=== PATIENT | female | born 1995 | race Two or more races ===

== ENCOUNTER 2016-12-21 23:27 | Inpatient (IN) | payer SELFPAY ==
[2016-12-21] MEDS ORDERED: ONDANSETRON HCL INJ/PF 4 MG/2 ML SDV IV ONE (23:47)
[2016-12-21] MEDS ORDERED: NORMAL SALINE 1000 ML 1,000 ML IV ONE (23:47)
[2016-12-22 00:44] LABS: ABSOLUTE BASOPHILS # (AUTO) 0.1 10^3/uL (0.0-0.2); ABSOLUTE EOSINOPHILS # (AUTO) 0.2 10^3/uL (0.0-0.6); ABSOLUTE LYMPHOCYTES (AUTO) 2.2 10^3/uL (0.5-4.7); ABSOLUTE MONOCYTES (AUTO) 0.7 10^3/uL (0.1-1.4); ABSOLUTE NEUT (AUTO) 9.2 10^3/uL (1.7-8.2); BASOPHILS % (AUTO) 0.7 % (0-2); EOSINOPHILS % (AUTO) 1.5 % (0-6); HEMOGLOBIN 11.1 g/dL (12.0-15.5); HGB HCT DIFFERENCE -1.7; LYMPHOCYTES % (AUTO) 17.9 % (13-45); MEAN CORPUSCULAR HEMOGLOBIN 25.2 pg (27.0-33.4); MEAN CORPUSCULAR HGB CONC 31.6 g/dL (32.0-36.0); MEAN CORPUSCULAR VOLUME 80 fl (80-97); RED CELL DISTRIBUTION WIDTH 15.4 % (11.5-14.0); SEGMENTED NEUTROPHILS % (AUTO) 73.9 % (42-78); WHITE BLOOD COUNT 12.4 10^3/uL (4.0-10.5)
[2016-12-22 00:51] LABS: APPEARANCE,URINE CLOUDY; BILIRUBIN,URINE NEGATIVE (NEGATIVE); GLUCOSE, URINE NEGATIVE (NEGATIVE); KETONES,URINE NEGATIVE (NEGATIVE); LEUKOCYTE ESTERASE,URINE MODERATE (NEGATIVE); NITRITE,URINE NEGATIVE (NEGATIVE); PROTEIN,URINE NEGATIVE (NEGATIVE); URINE SPECIFIC GRAVITY 1.024; UROBILINOGEN,URINE NEGATIVE mg/dL (<2.0)
[2016-12-22] MEDS ORDERED: MORPHINE SULFATE 10 MG/ML INJ IV ONE (01:22)
--- NOTE | 2016-12-22 01:25 | ER Document Report ---
ED General - General Chief Complaint: Nausea/Vomiting Stated Complaint: VOMITING Notes: Patient is 21-year-old female presents with complaint of right upper quadrant epigastric abdominal pain. Some vomiting. Pain started today. Pain is worse after eating.. No fevers. No diarrhea. No recent sick contacts. No history of previous abdominal surgeries. No other complaints this time. No dysuria. No abnormal vaginal discharge or bleeding. TRAVEL OUTSIDE OF THE [place] IN LAST 30 DAYS: No - Related Data Allergies/Adverse Reactions: No Known Allergies Allergy (Verified 07/22/16 09:35) Home Medications: Current Home Medications Biotin 2 cap PO DAILY 12/22/16 [History] Past Medical History - Social History Smoking Status: Unknown if Ever Smoked Frequency of alcohol use: None Drug Abuse: None Family History: Reviewed & Not Pertinent Patient has suicidal ideation: No Patient has homicidal ideation: No Renal/ Medical History: Denies: Hx Peritoneal Dialysis GI Medical History: Reports: Hx Gastroesophageal Reflux Disease - Immunizations Hx Diphtheria, Pertussis, Tetanus Vaccination: Yes Review of Systems - Review of Systems Notes: My Normal Review Basic REVIEW OF SYSTEMS: CONSTITUTIONAL : Denies fever, chills, or sweats. Denies recent illness. EENT: Denies eye, ear, throat, or mouth pain or symptoms. Denies nasal or sinus congestion. RESPIRATORY: Denies cough, cold, or chest congestion. Denies shortness of breath, difficulty breathing, or wheezing. GASTROINTESTINAL: Right upper quadrant and epigastric abdominal pain. Some nausea and vomiting.. Denies constipation. Last GENITOURINARY: Denies difficulty urinating, painful urination, burning, frequency, or blood in urine. FEMALE GENITOURINARY: Denies vaginal bleeding, abnormal or irregular periods. MUSCULOSKELETAL: Denies neck or back pain or joint pain or swelling. SKIN: Denies rash or skin lesions. NEUROLOGICAL: Denies altered mental status or loss of consciousness. Denies headache. Denies weakness or paralysis or loss of use of either side. Denies problems with gait or speech. Denies sensory or motor loss. ALL OTHER SYSTEMS REVIEWED AND NEGATIVE. Physical Exam - Vital signs Vitals: Temp Pulse Resp BP Pulse Ox 97.8 F 77 16 105/63 100 12/21/16 23:36 12/21/16 23:36 12/21/16 23:36 12/21/16 23:36 12/21/16 23:36 - Notes Notes: General Appearance: Well nourished, alert, cooperative, no acute distress, mild obvious discomfort. Vitals: reviewed, See vital signs table. Head: no swelling or tenderness to the head Eyes: PERRL, EOMI, Conjuctiva clear Mouth: No decreasd moisture Lungs: No wheezing, No rales, No rhonci, No accessory muscle use, good air exchange bilaterally. Heart: Normal rate, Regular rythm, No murmur, no rub Abdomen: Normal BS, soft, No rigidity, moderate right upper quadrant and epigastric abdominal tenderness to palpation, No guarding, no rebound, no abdominal masses, no organomegaly Extremities: strength 5/5 in all extremities, good pulses in all extremities, no swelling or tenderness in the extremities, no edema. Skin: warm, dry, appropriate color, no rash Neuro: speech clear, oriented x 3, normal affect, responds appropriately to questions. Course - Vital Signs Vital signs: Temp Pulse Resp BP Pulse Ox 97.8 F 72 14 100/59 L 97 12/22/16 06:21 12/22/16 06:21 12/22/16 06:21 12/22/16 06:21 12/22/16 06:21 - Laboratory Result Diagrams: 12/22/16 00:30 12/22/16 00:30 Laboratory results interpreted by me: 12/22/16 12/22/16 12/22/16 00:30 00:30 00:30 WBC 12.4 H Hgb 11.1 L Hct 35.0 L MCH 25.2 L MCHC 31.6 L RDW 15.4 H Absolute Neutrophils 9.2 H Total Protein 8.6 H Ur Leukocyte Esterase MODERATE H - Transfer of Care Notes: 12/22/16 07:07 I did speak with the general surgeon who did come evaluate the patient. He feels most likely symptoms are related to her gallbladder. He did admit the patient for further treatment and workup. Ultrasound was pending at that time. Dictation of this chart was performed using voice recognition software; therefore, there may be some unintended grammatical errors. Discharge - Discharge Clinical Impression: RUQ abdominal pain Vomiting Qualifiers: Vomiting type: unspecified Vomiting Intractability: non-intractable Nausea presence: with nausea Qualified Code(s): R11.2 - Nausea with vomiting, unspecified Leukocytosis Qualifiers: Leukocytosis type: unspecified Qualified Code(s): D72.829 - Elevated white blood cell count, unspecified Disposition: ADMITTED INPATIENT Admitting Provider: Surgicalist
[2016-12-22 01:29] LABS: ALBUMIN 4.7 g/dL (3.5-5.0); ALKALINE PHOSPHATASE 86 U/L (38-126); ANION GAP 16 (5-19); ASPARTATE AMINO TRANSFERASE 26 U/L (14-36); BILIRUBIN,TOTAL 0.7 mg/dL (0.2-1.3); BLOOD UREA NITROGEN 14 mg/dL (7-20); CARBON DIOXIDE 24 mmol/L (22-30); CHLORIDE 105 mmol/L (98-107); GLUCOSE 106 mg/dL (75-110); POTASSIUM 3.9 mmol/L (3.6-5.0); SODIUM 144.5 mmol/L (137-145); TOTAL PROTEIN 8.6 g/dL (6.3-8.2)
[2016-12-22 02:09] LABS: ALANINE AMINOTRANSFERASE 25 U/L (9-52)
[2016-12-22] MEDS ORDERED: PIPERACILLIN/TAZOBACTAM 3.375 GM VIAL IV ONE (02:14)
[2016-12-22] MEDS ORDERED: FAMOTIDINE INJ/PF 20 MG/2 ML SDV IV SCH (02:15)
[2016-12-22] MEDS ORDERED: ENOXAPARIN SODIUM INJ 40 MG/0.4 ML DISP.SYRIN SUBCUT SCH (02:30)
[2016-12-22] MEDS: NORMAL SALINE 1000 ML 1,000 ML IV PRN ×2 (03:51→15:18)
--- NOTE | 2016-12-22 04:23 | HISTORY AND PHYSICAL E ---
History and Physical NAME: LISS RODRIGUEZ : 1995 AGE: 21Y ADMITTED: 12/22/2016 ROOM: ED01HW REASON FOR ADMISSION: Suspected cholelithiasis with biliary colic, possible acute cholecystitis. HISTORY OF PRESENT ILLNESS: This 21-year-old female was in her usual state of health approximately 2 days prior to admission when she developed upper abdominal and mid abdominal pain with nausea and vomiting several times. There was no hematemesis or coffee ground vomitus, melena or hematochezia. The patient denies any fever or chills or previous episodes. The patient does give a history of postprandial bloating, gassiness, indigestion and early satiety. The patient presented to the emergency room with right upper quadrant pain, which was approximately 8/10 in intensity and on examination in the ER, she was found to have right upper quadrant tenderness. Of note, the patient's mother has had her gallbladder taken out for gallbladder pathology. The patient is now awaiting ultrasound of her gallbladder and laboratory data is pending. The patient states that since delivering her baby 4 months ago, she has been having postprandial symptoms of bloating, gassiness, indigestion and early satiety. PAST MEDICAL HISTORY: The patient has no history of diabetes mellitus, hypertension, cardiac, renal, pulmonary, liver disease or bleeding tendencies. No history of anesthesia problems with the family. ALLERGIES: None. MEDICATIONS: None. REVIEW OF SYSTEMS: CONSTITUTIONAL: The patient has no constitutional symptoms of weakness, tiredness or fatigue. ENT/RESPIRATORY/CARDIAC: The patient denies any symptoms referable to the ENT, respiratory, cardiovascular systems. GASTROINTESTINAL: As in history of present illness. The patient denies any symptoms referable to genitourinary, musculoskeletal, integumentary, lymphatic, endocrine or psychiatric systems. SOCIAL HISTORY: The patient does not drink or smoke. Denies illicit drugs. PHYSICAL EXAMINATION: GENERAL: Reveals a 21-year-old female, who is normally nourished, normally developed, who is in mild distress. VITAL SIGNS: To be recorded. HEENT: There is no conjunctival pallor or scleral icterus. Ears, nose and throat are clear. Mucous membranes are moist and pink. NECK: Supple without nodes, masses, thyroid, JVD or bruits. Trachea is midline. CHEST WALL: Shows good excursion. LUNGS: Clear anteriorly with good entry. CARDIOVASCULAR: S1 and S2 are audible without murmurs or gallops. ABDOMEN: Soft. Mildly obese with mild right upper quadrant and epigastric tenderness with minimal guarding. Bowel sounds are present. There is negative Hendricks's sign. There is no organomegaly or masses. No hernias or bruits noted. EXTREMITIES: Full range of motion without edema or tenderness. PELVIC/RECTAL: Examinations deferred. IMPRESSION: Abdominal pain, suspicious for cholelithiasis and biliary colic with possible true cholecystitis. PLAN: The patient is to undergo ultrasound at this time and we will admit the patient, anticipating that she will laparoscopic cholecystectomy. DICTATING PHYSICIAN: NIKKIE MORRIS M.D. [id number] PHY#: [id number] ID: [id number] JOB#: [id number] ACCT: [id number] cc: >
[2016-12-22] MEDS: ONDANSETRON HCL INJ/PF 4 MG/2 ML SDV IV PRN ×2 (06:15→19:35)
[2016-12-22] MEDS: MORPHINE SULFATE 10 MG/ML INJ IV PRN ×3 (06:18→22:52)
--- NOTE | 2016-12-22 07:57 | PDOC PROGRESS REPORT ---
Subjective Progress Note for:: 12/22/16 Subjective:: Patient complaining of abdominal pain. Physical Exam Vital Signs: Temp Pulse Resp BP Pulse Ox 97.8 F 72 14 100/59 L 97 12/22/16 06:21 12/22/16 06:21 12/22/16 06:21 12/22/16 06:21 12/22/16 06:21 General appearance: PRESENT: no acute distress GI/Abdominal exam: PRESENT: other - Minimal right upper quadrant tenderness. Results Impressions: Abdomen Ultrasound 12/22/16 01:22 IMPRESSION: NORMAL RIGHT UPPER QUADRANT ULTRASOUND. Assessment & Plan - Diagnosis (1) RUQ abdominal pain Is this a current diagnosis for this admission?: YesPlan: 1. Patient's gallbladder ultrasound was interpreted as normal. 2. In light of the patient's persisting abdominal pain localized right upper quadrant, leukocytosis, we will order a HIDA scan. - Time Time Spent with patient: 15-24 minutes
[2016-12-22] MEDS: FAMOTIDINE INJ/PF 20 MG/2 ML SDV IV SCH (22:46)
[2016-12-23] MEDS: NORMAL SALINE 1000 ML 1,000 ML IV PRN ×2 (00:28→08:57)
[2016-12-23] MEDS: ENOXAPARIN SODIUM INJ 40 MG/0.4 ML DISP.SYRIN SUBCUT SCH (08:54)
[2016-12-23] MEDS: FAMOTIDINE INJ/PF 20 MG/2 ML SDV IV SCH ×2 (10:40→23:02)
[2016-12-23] MEDS: MORPHINE SULFATE 10 MG/ML INJ IV PRN (21:15)
[2016-12-23] MEDS: ACETAMINOPHEN 325 MG TABLET PO PRN (23:20)
[2016-12-24] MEDS ORDERED: CEFAZOLIN 2 GM/D5W RTU 2 GM/50 ML RTUPB IV PRN (05:00)
--- NOTE | 2016-12-24 06:56 | PDOC PROGRESS REPORT ---
Subjective Progress Note for:: 12/23/16 Subjective:: Patient reports continued epigastric and right upper quadrant pain. Minor nausea. I reviewed the patient's history, labs and imaging studies in detail with her. Physical Exam Vital Signs: Temp Pulse Resp BP Pulse Ox 98.5 F 77 16 90/50 L 99 12/24/16 03:16 12/24/16 03:16 12/24/16 03:16 12/24/16 03:16 12/24/16 03:16 Intake & Output 12/22/16 12/23/16 12/24/16 06:59 06:59 06:59 Intake Total 1081 400 Output Total 750 Balance 331 400 Weight 80.8 kg 82.2 kg General appearance: PRESENT: no acute distress Head exam: PRESENT: normocephalic Eye exam: PRESENT: EOMI Mouth exam: PRESENT: neck supple Neck exam: ABSENT: JVD, lymphadenopathy, tenderness, thyromegaly Respiratory exam: PRESENT: clear to auscultation godfrey Cardiovascular exam: PRESENT: RRR GI/Abdominal exam: PRESENT: Hendricks's sign, soft, tenderness - Right upper quadrant and epigastric tenderness. + Hendricks sign.. ABSENT: distended, guarding, rebound Extremities exam: ABSENT: pedal edema Neurological exam: PRESENT: alert, oriented to person, oriented to place, oriented to time, oriented to situation Psychiatric exam: PRESENT: appropriate affect, normal mood Skin exam: ABSENT: jaundice Results Impressions: Hepatobiliary Scan Nuclear Medicine 12/22/16 00:00 IMPRESSION: No cystic duct or common duct obstruction Depressed gallbladder ejection fraction. IV cholecystokinin reproduced the patient's symptoms. Abdomen Ultrasound 12/22/16 01:22 IMPRESSION: NORMAL RIGHT UPPER QUADRANT ULTRASOUND. Status: Image reviewed by me Assessment & Plan - Diagnosis (1) Biliary dyskinesia Is this a current diagnosis for this admission?: YesPlan: Patient interaction was conducted with the assistance of Delia Mayfield. Biliary dyskinesia with a HIDA scan of 19.8%. Discussed that the normal ejection fraction is greater than or equal to 35%. We discussed laparoscopic cholecystectomy with cholangiogram in detail. Questions were answered. We discussed the risks, benefits and alternatives including , heart attack, stroke, blood clots in the legs, blood clots in lungs, pneumonia, bleeding, infection, hernia, bile leak, failure of symptoms to resolve, long- term diarrhea, damage to surrounding structures such as bladder, bowels, blood vessels or bile duct resulting in serious long-term health issues. We discussed the possibility of retained stone with need for further procedure such as ERCP. Understands and wishes to proceed.
[2016-12-24] MEDS ORDERED: NEOSTIGMINE METHYLSULFATE 10 MG/10 ML VIAL ONE (07:50)
[2016-12-24] MEDS ORDERED: DEXAMETHASONE SOD PHOSPHATE INJ 4 MG/1 ML VIAL ONE (07:50)
[2016-12-24] MEDS ORDERED: ROCURONIUM BROMIDE INJ 50 MG/5 ML VIAL IV ONE (07:50)
[2016-12-24] MEDS ORDERED: GLYCOPYRROLATE INJ 0.4 MG/2 ML VIAL ONE (07:50)
[2016-12-24] MEDS ORDERED: ONDANSETRON HCL INJ/PF 4 MG/2 ML SDV ONE (07:50)
[2016-12-24 08:08] LABS: HEMATOCRIT 33.3 % (36.0-47.0); HEMOGLOBIN 10.5 g/dL (12.0-15.5); HGB HCT DIFFERENCE -1.8; MEAN CORPUSCULAR HEMOGLOBIN 25.6 pg (27.0-33.4); MEAN CORPUSCULAR HGB CONC 31.6 g/dL (32.0-36.0); MEAN CORPUSCULAR VOLUME 81 fl (80-97); RED BLOOD COUNT 4.11 10^6/uL (3.72-5.28); RED CELL DISTRIBUTION WIDTH 15.7 % (11.5-14.0); WHITE BLOOD COUNT 7.4 10^3/uL (4.0-10.5)
[2016-12-24 08:25] LABS: ALANINE AMINOTRANSFERASE 24 U/L (9-52); ALBUMIN 3.7 g/dL (3.5-5.0); ALKALINE PHOSPHATASE 63 U/L (38-126); ANION GAP 12 (5-19); ASPARTATE AMINO TRANSFERASE 16 U/L (14-36); BILIRUBIN,TOTAL 0.7 mg/dL (0.2-1.3); BLOOD UREA NITROGEN 12 mg/dL (7-20); CALCIUM 9.4 mg/dL (8.4-10.2); CARBON DIOXIDE 24 mmol/L (22-30); CHLORIDE 106 mmol/L (98-107); CREATININE RESULT 0.67 mg/dL (0.52-1.25); GLUCOSE 78 mg/dL (75-110); POTASSIUM 4.1 mmol/L (3.6-5.0); SODIUM 141.7 mmol/L (137-145); TOTAL PROTEIN 6.8 g/dL (6.3-8.2)
[2016-12-24] MEDS: ENOXAPARIN SODIUM INJ 40 MG/0.4 ML DISP.SYRIN SUBCUT SCH (08:46)
[2016-12-24] MEDS ORDERED: BUPIVACAINE HCL 0.25% /EPINEPHRINE INJ/PF 30 ML SDV ONE (09:13)
[2016-12-24] MEDS ORDERED: LIDOCAINE 1% INJ-PF (10 MG/ML) 30 ML SDV ONE (09:13)
[2016-12-24] MEDS: FAMOTIDINE INJ/PF 20 MG/2 ML SDV IV SCH ×2 (09:35→21:36)
[2016-12-24] MEDS ORDERED: HYDROMORPHONE HCL INJ/PF 2 MG/ML AMPULE ONE (10:45)
[2016-12-24] MEDS ORDERED: FENTANYL CITRATE INJ/PF 100 MCG/2 ML AMPUL ONE (10:45)
[2016-12-24] MEDS ORDERED: MIDAZOLAM 2 MG/2 ML INJ ONE (10:45)
[2016-12-24] MEDS ORDERED: PROPOFOL INJ 200 MG/20 ML VIAL IV ONE (10:46)
--- NOTE | 2016-12-24 11:21 | PDOC PROGRESS REPORT ---
Subjective Progress Note for:: 12/24/16 Subjective:: Still has pain when epigastrium or right upper quadrant is palpated. Otherwise doing well. Ready for surgery. Physical Exam Vital Signs: Temp Pulse Resp BP Pulse Ox 98.7 F 72 16 97/55 L 98 12/24/16 08:11 12/24/16 08:11 12/24/16 08:11 12/24/16 08:11 12/24/16 08:11 Intake & Output 12/23/16 12/24/16 12/25/16 06:59 06:59 06:59 Intake Total 1081 400 Output Total 750 Balance 331 400 Weight 80.8 kg 82.2 kg General appearance: PRESENT: no acute distress Head exam: PRESENT: normocephalic GI/Abdominal exam: PRESENT: soft. ABSENT: distended, guarding, rebound, tenderness Neurological exam: PRESENT: alert, oriented to situation Psychiatric exam: PRESENT: anxious Skin exam: ABSENT: jaundice Results Laboratory Results: 12/24/16 07:19 12/24/16 07:19 12/24/16 12/24/16 07:19 07:19 WBC 7.4 RBC 4.11 Hgb 10.5 L Hct 33.3 L MCV 81 MCH 25.6 L MCHC 31.6 L RDW 15.7 H Plt Count 274 Sodium 141.7 Potassium 4.1 Chloride 106 Carbon Dioxide 24 Anion Gap 12 BUN 12 Creatinine 0.67 Est GFR ( Amer) > 60 Est GFR (Non-Af Amer) > 60 Glucose 78 Calcium 9.4 Total Bilirubin 0.7 AST 16 ALT 24 Alkaline Phosphatase 63 Total Protein 6.8 Albumin 3.7 Impressions: Hepatobiliary Scan Nuclear Medicine 12/22/16 00:00 IMPRESSION: No cystic duct or common duct obstruction Depressed gallbladder ejection fraction. IV cholecystokinin reproduced the patient's symptoms. Abdomen Ultrasound 12/22/16 01:22 IMPRESSION: NORMAL RIGHT UPPER QUADRANT ULTRASOUND. Assessment & Plan - Diagnosis (1) Biliary dyskinesia Is this a current diagnosis for this admission?: YesPlan: Proceed with surgery for biliary dyskinesia. Ancef 2 g IV preop. SCDs. Voided just before entering the OR. Questions answered. She wishes to proceed.
[2016-12-24] MEDS ORDERED: MORPHINE SULFATE 10 MG/ML INJ IV PRN (12:04)
[2016-12-24] MEDS ORDERED: DIPHENHYDRAMINE HCL 50 MG/ML VIAL IV PRN (12:04)
[2016-12-24] MEDS ORDERED: PROMETHAZINE HCL INJ 25 MG/1 ML VIAL IV PRN (12:04)
[2016-12-24] MEDS ORDERED: MEPERIDINE HCL/PF INJ 25 MG/1 ML DISP.SYRIN IV PRN (12:04)
[2016-12-24] MEDS ORDERED: FENTANYL CITRATE INJ/PF 100 MCG/2 ML AMPUL IV PRN ×3 (12:04)
[2016-12-24] MEDS ORDERED: PROMETHAZINE HCL INJ 25 MG/1 ML VIAL ONE (13:02)
--- NOTE | 2016-12-24 13:09 | Operative Report ---
Operative Report DATE OF SURGERY: 12/24/16 PREOPERATIVE DIAGNOSIS: Biliary dyskinesia POSTOPERATIVE DIAGNOSIS: Biliary dyskinesia, chronic cholecystitis. OPERATION: Laparoscopic cholecystectomy with cholangiogram SURGEON: ADELA CALHOUN RETAIL LOSS PREVENTION OFFICER: SALUD LOBO ANESTHESIA: GA TISSUE REMOVED OR ALTERED: Gallbladder COMPLICATIONS: None noted ESTIMATED BLOOD LOSS: minimal INTRAOPERATIVE FINDINGS: Dilated gallbladder with fibrous adhesions indicative of chronic cholecystitis. Normal cholangiogram. PROCEDURE: The patient was brought to the operative suite and placed supine on the OR table. Timeout was performed. Antibiotics were administered. Padding and positioning was appropriate. The patient was induced, intubated and maintained on general endotracheal anesthesia throughout the procedure. Patient was prepped and draped in the normal sterile fashion. The skin above the umbilicus was infiltrated with local anesthetic. A 5 mm incision was made. A Capron and Adson were used to dissect down to the level of the fascia, grasped the fascia and elevate it. The Veress needle was placed. Satisfactory water drop test was performed. Low flow insufflation was connected and yielded low opening pressure. Insufflation was advanced to high flow and pneumoperitoneum of 15 mmHg was obtained and maintained with procedure. Trocar and camera were placed through this incision confirming entry into the abdominal cavity without incident. Next the 11 mm epigastric and the two 5 mm right subcostal trochars were placed in the normal location and fashion under direct visualization, after infiltration with local anesthetic. Instruments were introduced. The abdominal cavity was surveyed. There was some bilious colored fluid in the right paracolic gutter and the pelvis. This was suctioned free of the abdominal at the end of the case. The gallbladder, which was dilated and had dense fibrous adhesions indicative of chronic cholecystitis. The adhesions to the gallbladder which were taken down with a combination of electrocautery and blunt dissection. The fundus of the gallbladder was elevated over the liver edge. The dissection the gallbladder began on the lateral aspect. Dissection continued down to the triangle of Calot. The cystic artery and the cystic duct were dissected out and seen to be clearly entering the gallbladder with no obscuration. The cystic duct was clipped adjacent to the gallbladder. A ductotomy was made. A cholangiocatheter was inserted. A cholangiogram was performed showing good filling of the biliary tree proximally and distally on down into the duodenum with no filling defects. The cholangiocatheter was removed. The cystic duct was clipped 3 times proximally and divided between clips. The cystic artery was clipped twice proximally and once distally against the gallbladder and divided between the clips. The gallbladder was removed from the gallbladder fossa with hook electrocautery. It was placed in an Endo Catch bag and removed through the epigastric trocar site. It was sent to pathology for further analysis. The field was irrigated and suctioned. The field was intact with no leakage of bile or blood. Clips were in place. The abdominal cavity was surveyed and was unremarkable. Trocar sites were infiltrated with more local anesthetic. The epigastric trocar site was closed at the level of the fascia with 0 Vicryl suture using the Endo Close needle. Pneumoperitoneum was released. Trochars were removed. Incisions were closed at the level of the skin with 4-0 Monocryl. The closed incisions were dressed with benzoin tincture, Steri-Strips and Band-Aids. All lap needle sponge counts were correct. The patient tolerated procedure well and was taken recovery in stable condition. TESFAYE Rangel was present and assisted for the entirety of the case. She provided sousa assistance with a variety of tasks including but not limited to obtaining pneumoperitoneum, operating camera, retracting, and closing incisions.
[2016-12-24] MEDS: ACETAMINOPHEN 325 MG TABLET PO PRN (17:42)
[2016-12-24] MEDS: HYDROCODONE/ACETAMINOPHEN 5-325 MG TABLET PO PRN (19:46)
[2016-12-24] MEDS ORDERED: DOCUSATE SODIUM 100 MG CAPSULE PO ONE (20:00)
[2016-12-25] MEDS: HYDROCODONE/ACETAMINOPHEN 5-325 MG TABLET PO PRN ×2 (01:12→08:38)
[2016-12-25] MEDS: ENOXAPARIN SODIUM INJ 40 MG/0.4 ML DISP.SYRIN SUBCUT SCH (08:41)
[2016-12-25] MEDS ORDERED: DOCUSATE SODIUM 100 MG CAPSULE PO SCH (10:00)
--- NOTE | 2016-12-25 10:02 | PDOC PROGRESS REPORT ---
Subjective Progress Note for:: 12/25/16 Subjective:: Feels well. Upper abdominal pain improved from preop. Physical Exam Vital Signs: Temp Pulse Resp BP Pulse Ox 98.5 F 71 15 100/53 L 99 12/25/16 07:50 12/25/16 07:50 12/25/16 04:41 12/25/16 07:50 12/25/16 07:50 Intake & Output 12/24/16 12/25/16 12/26/16 06:59 06:59 06:59 Intake Total 400 2940 Output Total 1560 Balance 400 1380 Weight 82.2 kg 82.6 kg General appearance: PRESENT: no acute distress Respiratory exam: PRESENT: clear to auscultation godfrey Cardiovascular exam: PRESENT: RRR GI/Abdominal exam: PRESENT: other - Soft, nondistended, mild right upper quadrant abdominal tenderness with no peritoneal signs. Wounds clean dry and intact. Extremities exam: PRESENT: other - No swelling and no tenderness. Results Laboratory Results: 12/24/16 07:19 12/24/16 07:19 Impressions: Hepatobiliary Scan Nuclear Medicine 12/22/16 00:00 IMPRESSION: No cystic duct or common duct obstruction Depressed gallbladder ejection fraction. IV cholecystokinin reproduced the patient's symptoms. Abdomen Ultrasound 12/22/16 01:22 IMPRESSION: NORMAL RIGHT UPPER QUADRANT ULTRASOUND. Cholangiogram 12/24/16 00:00 IMPRESSION: INTRAOPERATIVE CHOLANGIOGRAM. Assessment & Plan - Diagnosis (1) Biliary dyskinesia Is this a current diagnosis for this admission?: YesPlan: Status post laparoscopic cholecystectomy and intraoperative cholangiogram. Patient doing well. Will discharge patient home.
--- NOTE | 2016-12-25 10:28 | DISCHARGE SUMMARY E ---
Discharge Summary NAME: LISS RODRIGUEZ : 1995 AGE: 21Y ADMITTED: 12/22/2016 DISCHARGED: 12/25/2016 DISCHARGE DIAGNOSIS: Biliary dyskinesia, chronic cholecystitis. PROCEDURE PERFORMED DURING HOSPITALIZATION: Laparoscopic cholecystectomy with intraoperative cholangiogram performed by Dr. Florencio Nance on 12/24/2016. HOSPITAL COURSE: The patient was initially admitted with persistence of her symptoms. She was taken to the operating room where she underwent a laparoscopic cholecystectomy with intraoperative cholangiogram. Intraoperative cholangiography was unremarkable. The patient did well postoperatively. She had improvement of her preoperative symptoms postoperatively. She was tolerating a diet. Her exam looked good. The patient is now being discharged to home in good condition. She will follow up with Dr. Florencio Nance in 2 weeks. She is encouraged to stay active at home; however, avoid strenuous activity. She may shower. She may follow a low-fat diet. DISCHARGE MEDICATIONS: 1. Percocet 1 p.o. every 4 hours p.r.n. pain. 2. Biotin 5 mg b.i.d. DICTATING PHYSICIAN: SASHA PARADA M.D. [id number] PHY#: [id number] ID: [id number] JOB#: [id number] ACCT: [id number] cc:SASHA PARADA M.D. [facility],
[2016-12-25 10:49] VITALS: BP 95/57
== END 2016-12-25 11:30 | disposition home or self-care (01) | DRG 419 ==
LOC: ER 23:27 → EH 12-22 01:58 → UNDOADMIN 12-22 01:58 → EH 12-22 02:30 → 2N 12-22 08:00
PROVIDERS: ADMIT Surgery; ATTEND Surgery
PROC: BF0CYZZ Plain Radiography of Hepatobiliary System, All using Other Contrast (ICD-10-PCS; 2016-12-24)
PROC: 0FT44ZZ Resection of Gallbladder, Percutaneous Endoscopic Approach (ICD-10-PCS; principal; 2016-12-24 12:00)
DX: K81.1 Chronic cholecystitis (principal); K82.8 Other specified diseases of gallbladder; K21.9 Gastro-esophageal reflux disease without esophagitis
CPT/HCPCS: 36415; 74300; 76705; 78227; 790; 80053; 81001; 84703; 85025; 85027; 88304; 93976; 94799; 96374; 96375; 99284; A9537; J0690; J1100; J1170; J1650; J2250; J2270; J2405; J2543; J2550; J2704; J2805; J3010; J3490; J7030; Q9967; Q9969; S0028

== ENCOUNTER 2016-12-26 15:40 | Observation (INO) | payer SELFPAY ==
--- NOTE | 2016-12-26 16:01 | ER Document Report ---
ED Medical Screen (RME) - General Stated Complaint: POST SURGICAL COMPLICATIONS Time seen by provider: 15:58 Mode of Arrival: Ambulatory Information source: Patient Notes: 21-year-old female presents to ED for vomiting of blood today. Patient had cholecystectomy on Thursday. She states she has been vomiting after trying to eat anything since the surgery. I have greeted and performed a rapid initial assessment of this patient. A comprehensive ED assessment and evaluation of the patient, analysis of test results and completion of medical decision making process will be conducted by an additional ED providers. TRAVEL OUTSIDE OF THE [place] IN LAST 30 DAYS: No - Related Data Allergies/Adverse Reactions: No Known Allergies Allergy (Verified 12/26/16 15:58) Past Medical History Renal/ Medical History: Denies: Hx Peritoneal Dialysis GI Medical History: Reports: Hx Gastroesophageal Reflux Disease Psychiatric Medical History: Denies: Hx Depression - Immunizations Hx Diphtheria, Pertussis, Tetanus Vaccination: Yes
[2016-12-26 16:40] LABS: ABSOLUTE BASOPHILS # (AUTO) 0.1 10^3/uL (0.0-0.2); ABSOLUTE EOSINOPHILS # (AUTO) 0.1 10^3/uL (0.0-0.6); ABSOLUTE LYMPHOCYTES (AUTO) 1.6 10^3/uL (0.5-4.7); ABSOLUTE MONOCYTES (AUTO) 0.7 10^3/uL (0.1-1.4); ABSOLUTE NEUT (AUTO) 7.7 10^3/uL (1.7-8.2); BASOPHILS % (AUTO) 0.5 % (0-2); EOSINOPHILS % (AUTO) 0.8 % (0-6); HEMATOCRIT 36.3 % (36.0-47.0); HEMOGLOBIN 11.4 g/dL (12.0-15.5); HGB HCT DIFFERENCE -2.1; LYMPHOCYTES % (AUTO) 16.1 % (13-45); MEAN CORPUSCULAR HEMOGLOBIN 25.6 pg (27.0-33.4); MEAN CORPUSCULAR HGB CONC 31.6 g/dL (32.0-36.0); MEAN CORPUSCULAR VOLUME 81 fl (80-97); MONOCYTES % (AUTO) 7.3 % (3-13); RED BLOOD COUNT 4.47 10^6/uL (3.72-5.28); RED CELL DISTRIBUTION WIDTH 16.2 % (11.5-14.0); SEGMENTED NEUTROPHILS % (AUTO) 75.3 % (42-78); WHITE BLOOD COUNT 10.2 10^3/uL (4.0-10.5)
[2016-12-26 16:52] LABS: APPEARANCE,URINE CLOUDY; BILIRUBIN,URINE NEGATIVE (NEGATIVE); GLUCOSE, URINE NEGATIVE (NEGATIVE); KETONES,URINE NEGATIVE (NEGATIVE); LEUKOCYTE ESTERASE,URINE LARGE (NEGATIVE); NITRITE,URINE POSITIVE (NEGATIVE); PROTEIN,URINE NEGATIVE (NEGATIVE); URINE SPECIFIC GRAVITY 1.012; UROBILINOGEN,URINE NEGATIVE mg/dL (<2.0)
[2016-12-26 17:13] LABS: ALANINE AMINOTRANSFERASE 60 U/L (9-52); ALBUMIN 4.8 g/dL (3.5-5.0); ALKALINE PHOSPHATASE 74 U/L (38-126); ANION GAP 14 (5-19); ASPARTATE AMINO TRANSFERASE 59 U/L (14-36); BILIRUBIN,TOTAL 0.6 mg/dL (0.2-1.3); BLOOD UREA NITROGEN 13 mg/dL (7-20); CARBON DIOXIDE 27 mmol/L (22-30); CHLORIDE 102 mmol/L (98-107); CREATININE RESULT 0.62 mg/dL (0.52-1.25); GLUCOSE 96 mg/dL (75-110); SODIUM 142.6 mmol/L (137-145)
--- NOTE | 2016-12-26 17:41 | ER Document Report ---
ED GI/ - General Time seen by provider: 17:30 Mode of Arrival: Ambulatory Information source: Patient, Relative TRAVEL OUTSIDE OF THE [place] IN LAST 30 DAYS: No - HPI Patient complains to provider of: Abdominal pain, Vomiting Onset: Other - see HPI Location: RUQ Associated symptoms: Blood in emesis, Nausea <ABDIEL CARMONA - Last Filed: 12/26/16 19:27> <IVETT HERNANDEZ - Last Filed: 12/26/16 23:37> - General Chief Complaint: Vomiting Stated Complaint: POST SURGICAL COMPLICATIONS Notes: Patient is a 21-year-old female presents to the emergency department with complaints of vomiting and abdominal pain. Patient states that she had hematemesis this morning. Patient had a cholecystectomy on Thursday here at [facility]. Patient's surgery was performed by Dr. Robins. Patient is complaining of right upper quadrant abdominal pain. Patient states that her pain is worse since she left the hospital after her surgery. Patient is present with a family member and only speaks Namibian. Patient has no known allergies. (ABDIEL CARMONA) - Related Data Allergies/Adverse Reactions: No Known Allergies Allergy (Verified 12/26/16 15:58) Past Medical History - General Information source: Patient, Relative - Social History Smoking Status: Never Smoker Cigarette use (# per day): No Chew tobacco use (# tins/day): No Frequency of alcohol use: None Drug Abuse: None Family History: None Patient has suicidal ideation: No Patient has homicidal ideation: No GI Medical History: Reports: Hx Gastroesophageal Reflux Disease Past Surgical History: Reports: Hx Cholecystectomy - 10/24 - Immunizations Hx Diphtheria, Pertussis, Tetanus Vaccination: Yes <ABDIEL CARMONA - Last Filed: 12/26/16 19:27> Review of Systems - Review of Systems Constitutional: No symptoms reported EENT: No symptoms reported Cardiovascular: No symptoms reported Respiratory: No symptoms reported Gastrointestinal: See HPI, Abdominal pain, Nausea, Vomiting, Blood in vomit Genitourinary: No symptoms reported Female Genitourinary: No symptoms reported Musculoskeletal: No symptoms reported Skin: No symptoms reported Hematologic/Lymphatic: No symptoms reported Neurological/Psychological: No symptoms reported -: Yes All other systems reviewed and negative <ABDIEL CARMONA - Last Filed: 12/26/16 19:27> Physical Exam - Vital signs Interpretation: Normal - General General appearance: Appears well, Alert In distress: Mild - HEENT Head: Normocephalic, Atraumatic Eyes: Normal Pupils: PERRL Mucous membranes: Normal - Respiratory Respiratory status: No respiratory distress Chest status: Nontender Breath sounds: Normal Chest palpation: Normal - Cardiovascular Rhythm: Regular Heart sounds: Normal auscultation Murmur: No - Abdominal Inspection: Fresh incision - surgical incisions are well and normal appearing Distension: No distension Bowel sounds: Normal Tenderness: Tender - tenderness to palpation to the RUQ and near surgical incision areas Organomegaly: No organomegaly - Back Back: Normal, Nontender - Extremities General upper extremity: Normal inspection, Normal ROM, Normal strength General lower extremity: Normal inspection, Normal ROM, Normal strength - Neurological Neuro grossly intact: Yes Cognition: Normal Orientation: AAOx4 Shyla Coma Scale Eye Opening: Spontaneous [place] Coma Scale Verbal: Oriented [place] Coma Scale Motor: Obeys Commands [place] Coma Scale Total: 15 Speech: Normal - Psychological Associated symptoms: Normal affect, Normal mood - Skin Skin Temperature: Warm Skin Moisture: Dry <ABDIEL CARMONA - Last Filed: 12/26/16 19:27> Course - Laboratory Result Diagrams: 12/26/16 16:10 12/26/16 16:10 - Consults Dr. Robins Time consulted: 17:40 Consulted provider: will come to ER <ABDIEL CARMONA - Last Filed: 12/26/16 19:27> - Laboratory Result Diagrams: 12/26/16 16:10 12/26/16 16:10 - Diagnostic Test Radiology reviewed: Image reviewed, Reports reviewed <IVETT HERNANDEZ - Last Filed: 12/26/16 23:37> - Re-evaluation Re-evalutation: 12/26/16 23:35 Patient is a 21-year-old female who comes in for abdominal pain, vomiting, and lightheadedness when she stands up. No acute findings on CT. Blood work within normal limits. The patient is still nauseated after all medications. Patient has been discussed with surgery and will be admitted to Dr. Nance. Of note, the patient does appear to have a moderate amount of stool but has refused enema. Stable at time of admission. (IVETT HERNANDEZ) - Vital Signs Vital signs: Temp Pulse Resp BP Pulse Ox 98.4 F 78 14 107/57 L 98 12/26/16 22:17 12/26/16 22:17 12/26/16 22:17 12/26/16 22:17 12/26/16 22:17 (ABDIEL CARMONA) (IVETT HERNANDEZ) - Laboratory Laboratory results interpreted by me: 12/26/16 12/26/16 12/26/16 16:10 16:10 16:10 Hgb 11.4 L MCH 25.6 L MCHC 31.6 L RDW 16.2 H AST 59 H ALT 60 H Urine Nitrite POSITIVE H Ur Leukocyte Esterase LARGE H (ABDIEL CARMONA) (IVETT HERNANDEZ) - Consults Dr. Robins Reason for consultation: 12/26/16 17:[address] Robins to notify him of his patient was present in the ED after surgery on 10/2412/26/16 18:[address] Robins who asked that a CT scan be ordered for this patient. (ABDIEL CARMONA) Discharge <ABDIEL CARMONA - Last Filed: 12/26/16 19:27> - Discharge Admitting Provider: Surgicalist - [facility] Unit Admitted: Surgical Floor <IVETT HERNANDEZ - Last Filed: 12/26/16 23:37> - Discharge Clinical Impression: Postoperative nausea and vomiting, Orthostatic hypotension Constipation Qualifiers: Constipation type: unspecified constipation type Qualified Code(s): K59.00 - Constipation, unspecified Urinary tract infection Qualifiers: Urinary tract infection type: site unspecified Hematuria presence: without hematuria Qualified Code(s): N39.0 - Urinary tract infection, site not specified Condition: Stable Disposition: ADMITTED OBSERVATION Scribe Attestation: 12/26/16 23:37 I personally performed the services described in the documentation, reviewed and edited the documentation which was dictated to the scribe in my presence, and it accurately records my words and actions. (IVETT HERNANDEZ) Scribe Documentation - Scribe Written by Scribroxie:: Abdiel Carmona 12/26/16 19:25 acting as scribe for :: Margarette <ABDIEL CARMONA - Last Filed: 12/26/16 19:27>
[2016-12-26] MEDS ORDERED: ONDANSETRON HCL INJ/PF 4 MG/2 ML SDV IV ONE ×2 (17:42→21:23)
[2016-12-26] MEDS ORDERED: NORMAL SALINE 1000 ML 1,000 ML IV ONE ×2 (17:42→20:33)
[2016-12-26] MEDS ORDERED: MORPHINE SULFATE 10 MG/ML INJ IV ONE (17:42)
[2016-12-26] MEDS ORDERED: CEFTRIAXONE 1 GM/D5W RTU 50 ML IV ONE (19:41)
[2016-12-26] MEDS ORDERED: PROCHLORPERAZINE EDISYLATE INJ 10 MG/2 ML VIAL IV ONE (21:23)
[2016-12-26] MEDS ORDERED: DIPHENHYDRAMINE HCL 50 MG/ML VIAL IV ONE (21:23)
[2016-12-26] MEDS ORDERED: NA PHOS,M-B/NA PHOS,DI-BA (ADULT) 133 ML ENEMA PR SCH (23:00)
[2016-12-26] MEDS ORDERED: ONDANSETRON HCL INJ/PF 4 MG/2 ML SDV IV PRN (23:16)
[2016-12-26] MEDS ORDERED: MORPHINE SULFATE 10 MG/ML INJ IV PRN (23:16)
--- NOTE | 2016-12-26 23:16 | PDOC H&P ---
History of Present Illness History of Present Illness: LISS RODRIGUEZ is a 21 year old female who had a laparoscopic cholecystectomy with cholangiogram on 12/24/2016. Surgery was midday. Surgical findings were notable for bilious fluid in the right paracolic gutter with no obvious cause, as well as dense fibrous adhesions to the gallbladder indicative of chronic cholecystitis. The pathology report on the gallbladder showed minimal chronic cholecystitis with cholesterolosis. She was doing well the morning following surgery and was discharged home with Percocet 5/325 one every 4 hours. She reports she's been taking the pain pills at 4 hour intervals but has right upper quadrant pain not well controlled by the pain pills. She also reports nausea and vomiting. It is not clear if she's been able to keep down the pain pills, or has been vomiting them up. She also reports she has a headache. She reports the vomiting contains some dark blood. She denies fevers or chills at home. She does report she is cold in the ER, but reports its due to the cold room (which it is). She denies chest pain, shortness of breath, seizures, tremors. She reports decreased flatus and no bowel movement in the last week. Labs were obtained by the ER provider. White count was 10.2. Bilirubin was normal. AST and ALT were 59 and 60 respectively. Hemoglobin is 11.4, which is low, but which is improved compared to preop labs. She does have evidence of a urinary tract infection. CT scan with by mouth and IV contrast was obtained which showed expected postsurgical changes. Patient had lightheadedness with attempted ambulation and refractory nausea and vomiting in the ED, and therefore surgery was consult for admission. Past Medical History GI Medical History: Reports: Gastroesophageal Reflux Disease, Other - Biliary dyskinesia/chronic cholecystitis Past Surgical History Past Surgical History: Reports: Cholecystectomy - 10/24 Social History Information Source: Patient Smoking Status: Never Smoker Frequency of Alcohol Use: None Hx Recreational Drug Use: No Hx Prescription Drug Abuse: No Family History Family History: Other - Mother had gallbladder removed. No family history of anesthesia problems. 5-month-old healthy baby boy. Parental Family History Reviewed: Yes Children Family History Reviewed: Yes Sibling(s) Family History Reviewed.: Yes Medication/Allergy Home Medications: Biotin [Biotin 5 mg Tablet] 5 mg PO BID 12/22/16 Oxycodone HCl/Acetaminophen [Percocet 5-325 mg Tablet] 1 tab PO ASDIR PRN #25 tablet 12/25/16 Allergies/Adverse Reactions: No Known Allergies Allergy (Verified 12/26/16 15:58) Review of Systems All systems: reviewed and no additional remarkable complaints except as stated Physical Exam Vital Signs: Temp Pulse Resp BP Pulse Ox 98.4 F 78 14 107/57 L 98 12/26/16 22:17 12/26/16 22:17 12/26/16 22:17 12/26/16 22:17 12/26/16 22:17 Intake & Output 12/25/16 12/26/16 12/27/16 06:59 06:59 06:59 Weight 76.8 kg General appearance: PRESENT: no acute distress Head exam: PRESENT: normocephalic Eye exam: PRESENT: EOMI Mouth exam: PRESENT: tongue midline Respiratory exam: PRESENT: clear to auscultation godfrey Cardiovascular exam: PRESENT: RRR GI/Abdominal exam: PRESENT: soft, tenderness - Tender in the right upper quadrant. Incisions clean and dry with Steri-Strips.. ABSENT: guarding, rebound Extremities exam: ABSENT: pedal edema, tenderness Neurological exam: PRESENT: alert, oriented to situation Skin exam: PRESENT: normal color. ABSENT: jaundice Results Laboratory Results: 12/26/16 16:10 12/26/16 16:10 12/26/16 12/26/16 12/26/16 16:10 16:10 16:10 WBC 10.2 RBC 4.47 Hgb 11.4 L Hct 36.3 MCV 81 MCH 25.6 L MCHC 31.6 L RDW 16.2 H Plt Count 306 Seg Neutrophils % 75.3 Lymphocytes % 16.1 Monocytes % 7.3 Eosinophils % 0.8 Basophils % 0.5 Absolute Neutrophils 7.7 Absolute Lymphocytes 1.6 Absolute Monocytes 0.7 Absolute Eosinophils 0.1 Absolute Basophils 0.1 Sodium 142.6 Potassium 4.0 Chloride 102 Carbon Dioxide 27 Anion Gap 14 BUN 13 Creatinine 0.62 Est GFR ( Amer) > 60 Est GFR (Non-Af Amer) > 60 Glucose 96 Calcium 10.0 Total Bilirubin 0.6 AST 59 H ALT 60 H Alkaline Phosphatase 74 Total Protein 8.0 Albumin 4.8 Lipase 68.0 Serum HCG, Qual NEGATIVE Urine Color Urine Appearance Urine pH Ur Specific [place] Urine Protein Urine Glucose (UA) Urine Ketones Urine Blood Urine Nitrite Ur Leukocyte Esterase Urine WBC (Auto) Urine RBC (Auto) 12/26/16 16:10 WBC RBC Hgb Hct MCV MCH MCHC RDW Plt Count Seg Neutrophils % Lymphocytes % Monocytes % Eosinophils % Basophils % Absolute Neutrophils Absolute Lymphocytes Absolute Monocytes Absolute Eosinophils Absolute Basophils Sodium Potassium Chloride Carbon Dioxide Anion Gap BUN Creatinine Est GFR ( Amer) Est GFR (Non-Af Amer) Glucose Calcium Total Bilirubin AST ALT Alkaline Phosphatase Total Protein Albumin Lipase Serum HCG, Qual Urine Color YELLOW Urine Appearance CLOUDY Urine pH 7.0 Ur Specific [place] 1.012 Urine Protein NEGATIVE Urine Glucose (UA) NEGATIVE Urine Ketones NEGATIVE Urine Blood NEGATIVE Urine Nitrite POSITIVE H Ur Leukocyte Esterase LARGE H Urine WBC (Auto) 52 Urine RBC (Auto) 2 Impressions: Abdomen/Pelvis CT 12/26/16 00:00 IMPRESSION: EXPECTED POSTSURGICAL CHANGE RELATED TO RECENT CHOLECYSTECTOMY WITHOUT GROSS COMPLICATION IDENTIFIED. NONOBSTRUCTING LEFT RENAL CALCULI. Assessment & Plan - Diagnosis (1) Postoperative nausea and vomiting Is this a current diagnosis for this admission?: YesPlan: Admit, IV fluids, IV anti-emesis medications, antibiotics for UTI, IV pain meds. Enema to be given in the ED, then started on a bowel regimen with Colace and MiraLAX. Nothing by mouth at midnight in case additional studies need to be done in a.m. (2) Constipation Is this a current diagnosis for this admission?: Yes (3) Urinary tract infection Is this a current diagnosis for this admission?: Yes (4) RUQ abdominal pain Is this a current diagnosis for this admission?: Yes
[2016-12-26] MEDS ORDERED: PROMETHAZINE HCL INJ 25 MG/1 ML VIAL IV PRN (23:22)
[2016-12-26] MEDS: DOCUSATE SODIUM 100 MG CAPSULE PO SCH (23:45)
[2016-12-27] MEDS: PANTOPRAZOLE SODIUM 40 MG VIAL IV SCH (00:45)
[2016-12-27] MEDS: POTASSI CL 20 MEQ/D5-1/2NS 1L 1,000 ML IV PRN ×3 (00:48→16:18)
[2016-12-27 06:29] LABS: HEMOGLOBIN 10.3 g/dL (12.0-15.5); HGB HCT DIFFERENCE -1.1; MEAN CORPUSCULAR HEMOGLOBIN 25.9 pg (27.0-33.4); MEAN CORPUSCULAR HGB CONC 32.3 g/dL (32.0-36.0); MEAN CORPUSCULAR VOLUME 80 fl (80-97); RED CELL DISTRIBUTION WIDTH 16.1 % (11.5-14.0); WHITE BLOOD COUNT 6.8 10^3/uL (4.0-10.5)
[2016-12-27 06:53] LABS: ALANINE AMINOTRANSFERASE 104 U/L (9-52); ALBUMIN 3.8 g/dL (3.5-5.0); ALKALINE PHOSPHATASE 151 U/L (38-126); AMYLASE 31 U/L (30-110); ANION GAP 12 (5-19); ASPARTATE AMINO TRANSFERASE 161 U/L (14-36); BILIRUBIN,TOTAL 0.6 mg/dL (0.2-1.3); BLOOD UREA NITROGEN 8 mg/dL (7-20); CALCIUM 9.6 mg/dL (8.4-10.2); CARBON DIOXIDE 21 mmol/L (22-30); CHLORIDE 106 mmol/L (98-107); GLUCOSE 96 mg/dL (75-110); LIPASE 50.4 U/L (23-300); MAGNESIUM 1.9 mg/dL (1.6-2.3); SODIUM 139.3 mmol/L (137-145); TOTAL PROTEIN 7.1 g/dL (6.3-8.2)
[2016-12-27] MEDS: ENOXAPARIN SODIUM INJ 40 MG/0.4 ML DISP.SYRIN SUBCUT SCH (08:53)
[2016-12-27] MEDS: POLYETHYLENE GLYCOL 3350 POWDER 17 GM/1 PACKET PO SCH (10:44)
[2016-12-27] MEDS: MORPHINE SULFATE 10 MG/ML INJ IV PRN ×2 (14:38→18:53)
[2016-12-27] MEDS: DOCUSATE SODIUM 100 MG CAPSULE PO SCH (18:45)
--- NOTE | 2016-12-27 19:24 | PDOC PROGRESS REPORT ---
Subjective Progress Note for:: 12/27/16 Physical Exam Vital Signs: Temp Pulse Resp BP Pulse Ox 98.3 F 74 18 98/50 L 99 12/27/16 07:37 12/27/16 07:37 12/27/16 07:37 12/27/16 07:37 12/27/16 07:37 Intake & Output 12/26/16 12/27/16 12/28/16 06:59 06:59 06:59 Weight 76.8 kg Results Laboratory Results: 12/27/16 06:01 12/27/16 06:01 12/27/16 12/27/16 06:01 06:01 WBC 6.8 RBC 4.00 Hgb 10.3 L Hct 32.0 L MCV 80 MCH 25.9 L MCHC 32.3 RDW 16.1 H Plt Count 289 Sodium 139.3 Potassium 4.0 Chloride 106 Carbon Dioxide 21 L Anion Gap 12 BUN 8 Creatinine 0.60 Est GFR ( Amer) > 60 Est GFR (Non-Af Amer) > 60 Glucose 96 Calcium 9.6 Phosphorus 4.0 Magnesium 1.9 Total Bilirubin 0.6 AST 161 H ALT 104 H Alkaline Phosphatase 151 H Total Protein 7.1 Albumin 3.8 Amylase 31 Lipase 50.4 Impressions: Abdomen/Pelvis CT 12/26/16 00:00 IMPRESSION: EXPECTED POSTSURGICAL CHANGE RELATED TO RECENT CHOLECYSTECTOMY WITHOUT GROSS COMPLICATION IDENTIFIED. NONOBSTRUCTING LEFT RENAL CALCULI. Assessment & Plan - Plan Summary Plan Summary: nausea, dehydration possible gastroparesis IV hydration Ambulate
[2016-12-27] MEDS ORDERED: METOCLOPRAMIDE HCL INJ/PF 10 MG/2 ML SDV IV ONE (19:25)
[2016-12-28] MEDS: POTASSI CL 20 MEQ/D5-1/2NS 1L 1,000 ML IV PRN ×2 (00:56→08:31)
[2016-12-28] MEDS: ENOXAPARIN SODIUM INJ 40 MG/0.4 ML DISP.SYRIN SUBCUT SCH (08:31)
[2016-12-28] MEDS: POLYETHYLENE GLYCOL 3350 POWDER 17 GM/1 PACKET PO SCH (10:31)
[2016-12-28] MEDS: PANTOPRAZOLE SODIUM 40 MG VIAL IV SCH (10:32)
[2016-12-28 11:57] VITALS: BP 104/58
--- NOTE | 2016-12-28 14:15 | PDOC PROGRESS REPORT ---
Subjective Progress Note for:: 12/28/16 Subjective:: feeling better no nausea, no pain tolerating diet Physical Exam Vital Signs: Temp Pulse Resp BP Pulse Ox 98.3 F 75 16 104/58 L 99 12/28/16 11:51 12/28/16 11:51 12/28/16 11:51 12/28/16 11:51 12/28/16 11:51 Intake & Output 12/27/16 12/28/16 12/29/16 06:59 06:59 06:59 Intake Total 3622 600 Output Total 450 Balance 3622 150 Weight 76.8 kg 78.2 kg GI/Abdominal exam: PRESENT: ascites, diminished bowel sounds, distended, firm, guarding, hernia, hyperactive bowel sounds, hypoactive bowel sounds, mass, Hendricks's sign, normal bowel sounds, organolmegaly, rebound, rigid, soft - NO TENDERNESS, tenderness, other Results Laboratory Results: 12/27/16 06:01 12/27/16 06:01 Impressions: Abdomen/Pelvis CT 12/26/16 00:00 IMPRESSION: EXPECTED POSTSURGICAL CHANGE RELATED TO RECENT CHOLECYSTECTOMY WITHOUT GROSS COMPLICATION IDENTIFIED. NONOBSTRUCTING LEFT RENAL CALCULI. Assessment & Plan - Plan Summary Plan Summary: nAUSEA, DEHYDRATIONRESOLVED. Mildle elivated AST, Bili normal Hepatitis seology and follow up in surgery clinic, HIDA Scan - if normal - DC home this PM or AM
--- NOTE | 2016-12-28 15:58 | DISCHARGE SUMMARY E ---
Discharge Summary NAME: LISS RODRIGUEZ : 1995 AGE: 21Y ADMITTED: 12/26/2016 DISCHARGED: 12/28/2016 ADMITTING DIAGNOSES: 1. Abdominal pain. 2. Nausea. 3. Status post laparoscopic cholecystectomy, probable biliary dyskinesia. HISTORY OF PRESENT ILLNESS: The patient underwent uneventful surgery and then admitted for a few days. A later week or so, nausea continued, unable to eat, mid-epigastric pain. HOSPITAL COURSE: After admission, CT scan was done which shows no pathology, no leak, no apparent abscesses, but patient because of pain and dehydration could not be discharged and would need to be admitted. After that, she was given IV fluids, and after hydration she is feeling better. From her last round, on the diet she is feeling a whole lot better. Labs are better, no fever, except the AST/ALT went up a little bit, so I am arranging a hepatitis panel, and for that she will follow in the office. HIDA scan also being ordered. If that is normal, then we will send her home. She will follow up in the surgical office for the followup of hepatitis profile and other irritable bowel management. PHYSICAL EXAMINATION: GENERAL: Otherwise, at the time of discharge, she is doing well. ABDOMEN: Examination reveals a completely benign abdomen. No signs of any sepsis, no infections, no bile leak signs. DICTATING PHYSICIAN: EWA WALKER M.D. [id number] PHY#: [id number] ID: [id number] JOB#: [id number] ACCT: [id number] cc:Malena SORTO PA >
[2016-12-28] MEDS: DOCUSATE SODIUM 100 MG CAPSULE PO SCH (17:56)
== END 2016-12-28 18:06 | disposition home or self-care (01) ==
LOC: ER 15:40 → EH 23:16 → UNDOADMOB 23:49 → 5 12-27 02:00
DX: K91.0 Vomiting following gastrointestinal surgery (principal); R10.11 Right upper quadrant pain; K21.9 Gastro-esophageal reflux disease without esophagitis; K59.00 Constipation, unspecified; N39.0 Urinary tract infection, site not specified
CPT/HCPCS: 96376; 99285; 96361; 96375; 96365; 96367; 36415 ×3; 82150; 83690 ×2; 83735; 84100; 84703; 85025; 85027; 80053 ×2; 81001; 80074; 78226; 74177; 94799; G0378 ×4; A9537; J3490 ×2; J1200; J2765; J2270 ×2; J1650 ×2; J3480 ×2; S0164 ×2; J0780; J2405; J7030; J0696; Q9969

== ENCOUNTER 2017-01-24 00:34 | Emergency (ER) | payer SELFPAY ==
--- NOTE | 2017-01-24 01:23 | ER Document Report ---
[id number] Notes: Patient is a 21-year-old female who presents with complaint of pain in her left side of her chest whenever she coughs or takes a deep breath. She has had a mild cough for last several days. Pain started suddenly yesterday. No difficulty breathing. No fevers. No vomiting. No diarrhea. She is 9 weeks . She did have a cholecystectomy 4 weeks ago. She denies any leg pain or leg swelling. She has no other complaints at this time. TRAVEL OUTSIDE OF THE [place] IN LAST 30 DAYS: No - Related Data Allergies/Adverse Reactions: No Known Allergies Allergy (Verified 12/26/16 15:58) Home Medications: Current Home Medications Vit W-Ca,Fe,FA(<1 mg) [ Vitamins] 1 each PO DAILY 01/24/17 [ History] Past Medical History - Social History Smoking Status: Never Smoker Frequency of alcohol use: None Drug Abuse: None Family History: Reviewed & Not Pertinent, Other - Mother had gallbladder removed. No family history of anesthesia problems. 5-month-old healthy baby boy. Renal/ Medical History: Denies: Hx Peritoneal Dialysis GI Medical History: Reports: Hx Gastroesophageal Reflux Disease Psychiatric Medical History: Denies: Hx Depression Past Surgical History: Reports: Hx Cholecystectomy - 10/24 - Immunizations Hx Diphtheria, Pertussis, Tetanus Vaccination: Yes Review of Systems - Review of Systems Notes: My Normal Review Basic REVIEW OF SYSTEMS: CONSTITUTIONAL : Denies fever, chills, or sweats. Denies recent illness. EENT: Denies eye, ear, throat, or mouth pain or symptoms. Denies nasal or sinus congestion. CARDIOVASCULAR: Some chest pain with deep breathing or coughing. RESPIRATORY: Denies cough, cold, or chest congestion. Denies shortness of breath, difficulty breathing, or wheezing. GASTROINTESTINAL: Denies abdominal pain. Denies nausea, vomiting, or diarrhea. Denies constipation. Last BM: GENITOURINARY: Denies difficulty urinating, painful urination, burning, frequency, or blood in urine. FEMALE GENITOURINARY: Denies vaginal bleeding, abnormal or irregular periods. LMP: Currently 9 weeks . MUSCULOSKELETAL: Denies neck or back pain or joint pain or swelling. SKIN: Denies rash or skin lesions. NEUROLOGICAL: Denies altered mental status or loss of consciousness. Denies headache. Denies weakness or paralysis or loss of use of either side. Denies problems with gait or speech. Denies sensory or motor loss. ALL OTHER SYSTEMS REVIEWED AND NEGATIVE. Physical Exam - Vital signs Vitals: Temp Pulse Resp BP Pulse Ox 98.4 F 83 18 103/62 100 01/24/17 00:46 01/24/17 00:46 01/24/17 00:46 01/24/17 00:46 01/24/17 00:46 - Notes Notes: General Appearance: Well nourished, alert, cooperative, no acute distress, no obvious discomfort. Well-appearing. Vitals: reviewed, See vital signs table. Head: no swelling or tenderness to the head Eyes: PERRL, EOMI, Conjuctiva clear Mouth: No decreasd moisture Chest wall: Mild pain to palpation over left breast. No significant reproducible tenderness to palpation of the upper left chest wall. Neck: Supple, no neck tenderness, No thyromegaly Lungs: No wheezing, No rales, No rhonci, No accessory muscle use, good air exchange bilaterally. Heart: Normal rate, Regular rythm, No murmur, no rub Abdomen: Normal BS, soft, No rigidity, No abdominal tenderness, No guarding, no rebound, no abdominal masses, no organomegaly Extremities: strength 5/5 in all extremities, good pulses in all extremities, no swelling or tenderness in the extremities, no edema. Skin: warm, dry, appropriate color, no rash Neuro: speech clear, oriented x 3, normal affect, responds appropriately to questions. Course - Re-evaluation Re-evalutation: 01/24/17 01:22 I did discuss with the patient's CT angiography of the chest being that she has pleuritic chest pain and is and just had surgery 4 weeks ago. Informed her that she is high risk for a blood clot in her lungs that a blood clot could be life-threatening. Informed her that I do recommend CT angiography of her chest. Also informed her of the radiation risks of daily. I informed her that she is still in the first trimester and therefore there are some linear ration risks. Informed her that these risks are rare but still possible. She is very nervous about having CT scan. She is . I did talk about the option d-dimer. I informed her the d-dimer is very sensitive but not 100% and that we could still be missing some blood clots with a negative d-dimer. Patient understands this and still wishes to go forward with the d-dimer instead of going straight to CT scan. 01/24/17 06:09 - Vital Signs Vital signs: Temp Pulse Resp BP Pulse Ox 98.4 F 83 20 101/56 L 99 01/24/17 00:46 01/24/17 00:46 01/24/17 04:01 01/24/17 04:01 01/24/17 04:01 - Laboratory Result Diagrams: 01/24/17 01:36 01/24/17 01:36 Laboratory results interpreted by me: 01/24/17 01/24/17 01/24/17 01:36 01:36 01:36 WBC 13.3 H Hgb 11.3 L Hct 34.6 L MCH 26.1 L RDW 16.3 H Absolute Neutrophils 8.7 H D-Dimer 0.98 H Carbon Dioxide 21 L Calcium 10.4 H - Transfer of Care Notes: 01/24/17 02:50 Patient's d-dimer is positive. I went back and spoke with her once again. I informed her that we need to do a CT angiogram of her chest to rule out a blood clot in her lungs. I informed her that if she does have a blood clot and we do not find this out that she could potentially from this. Patient understands this and wishes to go home and says she would come back if she worsened. I did once again he iterates to her that if she does have a blood clot that goes undiagnosed that this could lead to her . Patient again shows understanding of this, but says that she currently feels okay and does not want to risk radiation to her child and wants to go home and would come back immediately if her symptoms worsen or do not improve. Patient's encourage return any time. I informed her that we are not angry at her for sending out AMA and that we do wish that she would does come back so we can recheck her and potentially do the test. Patient understands this and will be discharged home against medical advice that she requests. 01/24/17 06:10 Discharge - Discharge Clinical Impression: Chest pain Qualifiers: Chest pain type: unspecified Qualified Code(s): R07.9 - Chest pain, unspecified Condition: Good Disposition: AGAINST MEDICAL ADVICE Additional Instructions: My concern is that you may have a blood clot in your lungs. We did do a blood test to try to rule this out. Your blood test was positive and therefore we cannot rule out you having a blood clot in your lungs without performing a CT scan of your lungs. I know that you have fear that this could do harm to your baby. My concern is that if you do have a blood clot in your lungs that this could eventually lead to you dying. This is why I think it is very important to have the CT scan performed. Please feel free to return to the ER anytime so that we can reevaluate you and potentially do the CT scan. Please have a very low threshold to return to the ER immediately if you have any continued chest pain, any shortness of breath, fevers, or feel unwell. Please follow closely with your OB doctor for reevaluation.
[2017-01-24 01:52] LABS: ABSOLUTE BASOPHILS # (AUTO) 0.1 10^3/uL (0.0-0.2); ABSOLUTE EOSINOPHILS # (AUTO) 0.3 10^3/uL (0.0-0.6); ABSOLUTE LYMPHOCYTES (AUTO) 3.1 10^3/uL (0.5-4.7); ABSOLUTE MONOCYTES (AUTO) 1.1 10^3/uL (0.1-1.4); ABSOLUTE NEUT (AUTO) 8.7 10^3/uL (1.7-8.2); BASOPHILS % (AUTO) 0.7 % (0-2); HEMATOCRIT 34.6 % (36.0-47.0); HEMOGLOBIN 11.3 g/dL (12.0-15.5); HGB HCT DIFFERENCE -0.7; LYMPHOCYTES % (AUTO) 23.5 % (13-45); MEAN CORPUSCULAR HEMOGLOBIN 26.1 pg (27.0-33.4); MEAN CORPUSCULAR HGB CONC 32.5 g/dL (32.0-36.0); MEAN CORPUSCULAR VOLUME 80 fl (80-97); MONOCYTES % (AUTO) 8.1 % (3-13); RED BLOOD COUNT 4.32 10^6/uL (3.72-5.28); RED CELL DISTRIBUTION WIDTH 16.3 % (11.5-14.0); SEGMENTED NEUTROPHILS % (AUTO) 65.7 % (42-78); WHITE BLOOD COUNT 13.3 10^3/uL (4.0-10.5)
[2017-01-24 02:02] LABS: ANION GAP 15 (5-19); BLOOD UREA NITROGEN 11 mg/dL (7-20); CALCIUM 10.4 mg/dL (8.4-10.2); CARBON DIOXIDE 21 mmol/L (22-30); CHLORIDE 105 mmol/L (98-107); GLUCOSE 95 mg/dL (75-110); POTASSIUM 3.9 mmol/L (3.6-5.0); SODIUM 140.8 mmol/L (137-145)
[2017-01-24 04:28] VITALS: BP 101/56
== END 2017-01-24 04:28 | disposition left against medical advice (07) ==
LOC: ER 00:34
DX: R07.9 Chest pain, unspecified (principal); R05 Cough
CPT/HCPCS: 36415; 71010; 80048; 85025; 85379; 99285

== ENCOUNTER → 2017-03-19 | Outpatient (CLI) | payer SELFPAY | LOC: RAD 14:30 | PROVIDERS: ATTEND Nurse Practitioner Women's Health | DX: Z34.82 Encounter for supervision of other normal pregnancy, second trimester (principal) | CPT/HCPCS: 76805 ==

== ENCOUNTER → 2017-07-01 | Outpatient (CLI) | payer SELFPAY ==
--- NOTE | 2017-07-01 14:30 | RADIOLOGY REPORT (SQ) ---
EXAM DESCRIPTION: U/S OB 14+ TRNABD 1GES W/O DOP COMPLETED DATE/TIME: 07/01/2017 2:13 pm REASON FOR STUDY: ENCOUNTER FOR SUPRVSN OF NORMAL , THIRD TRIMESTER (Z34.83) Z34.[address] FOR SUPRVSN OF NORMAL , THIRD TRIM COMPARISON: None. TECHNIQUE: Static and Dynamic grayscale imaging performed of gravid uterus using transabdominal appr oach. Additional selected color Doppler and spectral images recorded. All stored on PACS. LIMITATIONS: None. FINDINGS: EGA: 30 weeks 0 days [place]: 09/09/2017 EFW: 1480 g +/-219 g PERCENTILE: 46th VERA: 16.8 PLACENTA: Anterior. PRESENTATION: Cephalic. ANATOMY: HEART RATE: 144 beats per minute. FOUR CHAMBER HEART: Visualized. THREE VESSEL CORD: Yes. CORD INSERTION: Visualized. KIDNEYS AND BLADDER: Visualized. Appear normal. STOMACH: Visualized. Appears normal. SPINE: Normal as visualized. BRAIN AND LATERAL VENTRICLES: Visualized. Appear normal. Lateral ventricles not seen OTHER: No other significant finding. MATERNAL ADNEXA: Maternal ovaries not visualized. CERVICAL LENGTH: 5.2 cm Closed. OTHER: No other significant finding. IMPRESSION: LIVING INTRAUTERINE . ESTIMATED GESTATIONAL AGE 30 weeks 0 days NO VISUALIZED ANOMALIES. Trimester of : Third trimester - 28 weeks to delivery. TECHNICAL DOCUMENTATION: JOB ID: [id number] [employer]- All Rights Reserved
== END ==
LOC: RAD 13:34
PROVIDERS: ATTEND Nurse Practitioner Women's Health
DX: Z34.83 Encounter for supervision of other normal pregnancy, third trimester (principal)
CPT/HCPCS: 76805

== ENCOUNTER 2017-07-09 18:56 | Outpatient (CLI) | payer SELFPAY ==
[2017-07-09 20:04] LABS: AMORPHOUS SEDIMENT,URINE TRACE /HPF; APPEARANCE,URINE SLIGHTLY-CLOUDY; BILIRUBIN,URINE NEGATIVE (NEGATIVE); GLUCOSE, URINE NEGATIVE (NEGATIVE); KETONES,URINE NEGATIVE (NEGATIVE); LEUKOCYTE ESTERASE,URINE LARGE (NEGATIVE); NITRITE,URINE NEGATIVE (NEGATIVE); PROTEIN,URINE NEGATIVE (NEGATIVE); URINE SPECIFIC GRAVITY 1.008; UROBILINOGEN,URINE NEGATIVE mg/dL (<2.0)
[2017-07-09 20:29] LABS: URINE BARBITURATES SCREEN NEGATIVE; URINE METHADONE SCREEN NEGATIVE; URINE OPIATES LOW NEGATIVE; URINE PHENCYCLIDINE SCREEN NEGATIVE
--- NOTE | 2017-07-09 20:57 | RADIOLOGY REPORT (SQ) ---
EXAM DESCRIPTION: U/S OB LIMITED COMPLETED DATE/TIME: 07/09/2017 8:45 pm REASON FOR STUDY: cervical length r/o PTL COMPARISON: 07/01/2017 TECHNIQUE: Limited transabdominal grayscale ultrasound for evaluation of specific requested obstetri bridgett parameters. LIMITATIONS: None. FINDINGS: CERVICAL LENGTH: 4.4 cm Closed. FHR: 136 beats per minute. PRESENTATION: Breech. OTHER: No other significant findings. IMPRESSION: LIMITED OBSTETRICAL ULTRASOUND WITH MEASURED PARAMETERS DELINEATED ABOVE. Trimester of : Third trimester - 28 weeks to delivery. TECHNICAL DOCUMENTATION: JOB ID: [id number] [employer]- All Rights Reserved
== END 2017-07-09 21:41 | disposition home or self-care (01) ==
LOC: LC 18:56
PROVIDERS: ATTEND Student in an Organized Health Care Education/Training Program
PROC: 4A1HXCZ Monitoring of Products of Conception, Cardiac Rate, External Approach (ICD-10-PCS; principal; 2017-07-09)
DX: O23.43 Unspecified infection of urinary tract in pregnancy, third trimester (principal); Z3A.35 35 weeks gestation of pregnancy
CPT/HCPCS: 76815; 80307; 81001; 87086; 87088; 87186

== ENCOUNTER 2017-08-31 23:43 | Outpatient (CLI) | payer SELFPAY ==
[2017-09-01 00:37] LABS: ABSOLUTE BASOPHILS # (AUTO) 0.1 10^3/uL (0.0-0.2); ABSOLUTE EOSINOPHILS # (AUTO) 0.1 10^3/uL (0.0-0.6); ABSOLUTE LYMPHOCYTES (AUTO) 2.2 10^3/uL (0.5-4.7); ABSOLUTE NEUT (AUTO) 8.6 10^3/uL (1.7-8.2); BASOPHILS % (AUTO) 0.6 % (0-2); EOSINOPHILS % (AUTO) 1.2 % (0-6); HEMATOCRIT 31.5 % (36.0-47.0); HEMOGLOBIN 10.6 g/dL (12.0-15.5); HGB HCT DIFFERENCE 0.3; LYMPHOCYTES % (AUTO) 18.1 % (13-45); MEAN CORPUSCULAR HEMOGLOBIN 27.1 pg (27.0-33.4); MEAN CORPUSCULAR HGB CONC 33.6 g/dL (32.0-36.0); MEAN CORPUSCULAR VOLUME 81 fl (80-97); MONOCYTES % (AUTO) 8.7 % (3-13); RED CELL DISTRIBUTION WIDTH 15.3 % (11.5-14.0); SEGMENTED NEUTROPHILS % (AUTO) 71.4 % (42-78)
[2017-09-01 00:56] LABS: APPEARANCE,URINE SLIGHTLY-CLOUDY; BILIRUBIN,URINE NEGATIVE (NEGATIVE); GLUCOSE, URINE NEGATIVE (NEGATIVE); KETONES,URINE NEGATIVE (NEGATIVE); LEUKOCYTE ESTERASE,URINE MODERATE (NEGATIVE); NITRITE,URINE NEGATIVE (NEGATIVE); PROTEIN,URINE NEGATIVE (NEGATIVE); URINE SPECIFIC GRAVITY 1.004; UROBILINOGEN,URINE NEGATIVE mg/dL (<2.0)
[2017-09-01 01:13] LABS: URINE BARBITURATES SCREEN NEGATIVE; URINE METHADONE SCREEN NEGATIVE; URINE OPIATES LOW NEGATIVE; URINE PHENCYCLIDINE SCREEN NEGATIVE
[2017-09-01 02:25] LABS: CHLAM PCR NOT DETECTED (NOT DETECT)
[2017-09-01 04:24] LABS: ADD HIVPANEL? NO; HIV (1 AND 2) ANTIBODY NEGATIVE (NEGATIVE)
[2017-09-02 10:39] LABS: HEPATITIS C VIRUS AB 0.1 s/co ratio (0.0-0.9)
== END 2017-09-01 01:58 | disposition home or self-care (01) ==
LOC: LC 23:43
PROVIDERS: ATTEND Obstetrics & Gynecology
PROC: 4A1HXCZ Monitoring of Products of Conception, Cardiac Rate, External Approach (ICD-10-PCS; principal; 2017-08-31)
DX: O47.1 False labor at or after 37 completed weeks of gestation (principal); Z3A.38 38 weeks gestation of pregnancy
CPT/HCPCS: 36415; 80307; 81005; 85025; 86592; 86701; 86762; 86803; 86804; 86850; 86900; 86901; 87340; 87491; 87591

== ENCOUNTER 2017-09-05 00:38 | Outpatient (CLI) | payer SELFPAY ==
[2017-09-05 01:11] LABS: APPEARANCE,URINE SLIGHTLY-CLOUDY; BILIRUBIN,URINE NEGATIVE (NEGATIVE); GLUCOSE, URINE NEGATIVE (NEGATIVE); KETONES,URINE NEGATIVE (NEGATIVE); LEUKOCYTE ESTERASE,URINE MODERATE (NEGATIVE); NITRITE,URINE NEGATIVE (NEGATIVE); PROTEIN,URINE NEGATIVE (NEGATIVE); URINE SPECIFIC GRAVITY 1.004; UROBILINOGEN,URINE NEGATIVE mg/dL (<2.0)
[2017-09-05 01:57] LABS: URINE BARBITURATES SCREEN NEGATIVE; URINE METHADONE SCREEN NEGATIVE; URINE OPIATES LOW NEGATIVE; URINE PHENCYCLIDINE SCREEN NEGATIVE
== END 2017-09-05 02:14 | disposition home or self-care (01) ==
LOC: LC 00:38
PROVIDERS: ATTEND Obstetrics & Gynecology
DX: O47.9 False labor, unspecified (principal)
CPT/HCPCS: 59025; 80307; 81005

== ENCOUNTER 2017-09-06 16:08 | Outpatient (CLI) | payer SELFPAY ==
[2017-09-06 16:59] LABS: APPEARANCE,URINE CLOUDY; BILIRUBIN,URINE NEGATIVE (NEGATIVE); GLUCOSE, URINE NEGATIVE (NEGATIVE); KETONES,URINE NEGATIVE (NEGATIVE); LEUKOCYTE ESTERASE,URINE LARGE (NEGATIVE); NITRITE,URINE NEGATIVE (NEGATIVE); PROTEIN,URINE NEGATIVE (NEGATIVE); URINE SPECIFIC GRAVITY 1.012
[2017-09-06 17:20] LABS: URINE BARBITURATES SCREEN NEGATIVE; URINE METHADONE SCREEN NEGATIVE; URINE OPIATES LOW NEGATIVE; URINE PHENCYCLIDINE SCREEN NEGATIVE
--- NOTE | 2017-09-06 18:43 | Non Stress Test Report ---
Non Stress Test Datetime Report Generated by CPN: 09/06/2017 18:43 DEMOGRAPHIC Test Number: 3 EGA NST: 39.4 EGA NST: 39.3 EGA NST: 38.6 INDICATION Indication for Study: Ordered by Provider Indication for Study: Other Indication for Study: Ordered by Provider; Other Indication for Study (NST) Other: labor check Indication for Study (NST) Other: LC URINE RESULTS Urine Protein, NST: Negative Urine Ketones - NST: Negative Urine Glucose - NST: Negative Urine Blood - NST: Negative MONITORING Monitor Explained: Monitor Explained; Test Explained; Patient Verbalized Understanding Monitor Explained: Monitor Explained; Test Explained; Patient Verbalized Understanding Monitor Explained: Monitor Explained; Test Explained; Patient Verbalized Understanding Time on Monitor: 09/06/2017 16:36 Time on Monitor: 09/05/2017 01:10 Time on Monitor: 09/01/2017 00:38 Time off Monitor: 09/06/2017 17:30 Time off Monitor: 09/05/2017 01:30 NST Duration: 54 NST Duration: 20 NST INTERVENTIONS NST Interventions: PO Hydration; Reposition Patient NST Interventions: PO Hydration; Reposition Patient NST Interventions: PO Hydration; Reposition Patient Physician Notified NST: Dr. Owens Physician Notified NST: Dr Owens BABY A: [id number] BABY A Movement : Present Movement : Present Movement : Present Contraction Frequency : Irregular Contraction Frequency : 8-10 Contraction Frequency : 6-10 FHR Baseline : 145 FHR Baseline : 135 FHR Baseline : 125 Accelerations : 15X15 Accelerations : 15X15 Accelerations : 15X15 Decelerations : None Decelerations : None Decelerations : None Variability : Moderate 6-25bpm Variability : Moderate 6-25bpm Variability : Moderate 6-25bpm NST Review: Meets Criteria for Reactive NST NST Review: Meets Criteria for Reactive NST NST Review: Meets Criteria for Reactive NST NST Review and Verified By : Kevin Driscoll RN NST Review and Verified By : Mary Mclain RN NST Results: Reactive NST Results: Reactive NST Results: Reactive NST REPORT Report Trigger: Send Report
== END 2017-09-06 18:08 | disposition home or self-care (01) ==
LOC: LC 16:08
PROVIDERS: ATTEND Obstetrics & Gynecology
DX: O47.9 False labor, unspecified (principal)
CPT/HCPCS: 59025; 80307; 81005; 87077; 87081

== ENCOUNTER 2017-09-06 20:17 | Inpatient (IN) | payer SELFPAY ==
[2017-09-06 21:23] LABS: APPEARANCE,URINE SLIGHTLY-CLOUDY; BILIRUBIN,URINE NEGATIVE (NEGATIVE); GLUCOSE, URINE NEGATIVE (NEGATIVE); KETONES,URINE NEGATIVE (NEGATIVE); LEUKOCYTE ESTERASE,URINE MODERATE (NEGATIVE); NITRITE,URINE NEGATIVE (NEGATIVE); PROTEIN,URINE NEGATIVE (NEGATIVE); URINE SPECIFIC GRAVITY 1.004; UROBILINOGEN,URINE NEGATIVE mg/dL (<2.0)
[2017-09-06 22:00] LABS: URINE BARBITURATES SCREEN NEGATIVE; URINE METHADONE SCREEN NEGATIVE; URINE OPIATES LOW NEGATIVE; URINE PHENCYCLIDINE SCREEN NEGATIVE
[2017-09-06] MEDS ORDERED: RINGERS SOLUTION,LACTATED 1,000 ML IV PRN (22:45)
[2017-09-06] MEDS ORDERED: MISOPROSTOL 0.2 MG TABLET ONE (22:45)
[2017-09-06] MEDS ORDERED: PENICILLIN G POTASSIUM 5,000,000 UNIT in DEXTROSE 5%-WATER 100 ML IV ONE (22:45)
[2017-09-06] MEDS ORDERED: LIDOCAINE 1% INJ-PF (10 MG/ML) 30 ML SDV ONE (22:46)
[2017-09-06] MEDS ORDERED: PENICILLIN G-K 5 MILLION UNIT VIAL ONE (22:46)
[2017-09-06] MEDS ORDERED: OXYTOCIN/NORMAL SALINE 20 UNIT/1,000 ML RTUINJ ONE (22:46)
[2017-09-06] MEDS ORDERED: PENICILLIN G-K 5 MILLION UNIT VIAL IV PRN (23:02)
[2017-09-06] MEDS ORDERED: EPHEDRINE SULFATE INJ 50 MG/1 ML AMPULE ONE (23:07)
[2017-09-06] MEDS ORDERED: FENTANYL/BUPIVACAINE/NS/PF 200 MCG/100 ML RTUINJ EPI ONE (23:07)
[2017-09-06] MEDS ORDERED: BUPIVACAINE HCL 0.25 % INJ/PF (2.5 MG/1 ML) 30 ML VIAL ONE (23:07)
[2017-09-06 23:35] LABS: ABSOLUTE BASOPHILS # (AUTO) 0.1 10^3/uL (0.0-0.2); ABSOLUTE EOSINOPHILS # (AUTO) 0.1 10^3/uL (0.0-0.6); ABSOLUTE LYMPHOCYTES (AUTO) 2.5 10^3/uL (0.5-4.7); ABSOLUTE MONOCYTES (AUTO) 1.1 10^3/uL (0.1-1.4); ABSOLUTE NEUT (AUTO) 14.2 10^3/uL (1.7-8.2); BASOPHILS % (AUTO) 0.3 % (0-2); EOSINOPHILS % (AUTO) 0.3 % (0-6); HEMATOCRIT 34.7 % (36.0-47.0); HEMOGLOBIN 11.2 g/dL (12.0-15.5); HGB HCT DIFFERENCE -1.1; MEAN CORPUSCULAR HEMOGLOBIN 26.1 pg (27.0-33.4); MEAN CORPUSCULAR HGB CONC 32.2 g/dL (32.0-36.0); MEAN CORPUSCULAR VOLUME 81 fl (80-97); MONOCYTES % (AUTO) 6.3 % (3-13); RED BLOOD COUNT 4.28 10^6/uL (3.72-5.28); RED CELL DISTRIBUTION WIDTH 15.5 % (11.5-14.0); SEGMENTED NEUTROPHILS % (AUTO) 79.1 % (42-78)
[2017-09-07] MEDS ORDERED: DIBUCAINE 1% OINTMENT 28 GM TP PRN (01:50)
[2017-09-07] MEDS ORDERED: ZOLPIDEM TARTRATE 5 MG TABLET PO PRN ×2 (01:50→08:30)
[2017-09-07] MEDS ORDERED: DIPH/PERTUSS(ACELL)/TETANUS VAC/PF 0.5 ML SYR (>=10YO) IM PRN ×2 (01:50→08:30)
[2017-09-07] MEDS ORDERED: MEASLES,MUMPS&RUBELLA VACC/PF 0.5 ML VIAL SUBCUT PRN ×2 (01:50→08:30)
[2017-09-07] MEDS ORDERED: OXYTOCIN/NORMAL SALINE 1,000 ML IV PRN (01:50)
[2017-09-07] MEDS ORDERED: BENZOCAINE/MENTHOL AEROSOL SPRAY 56 ML TOP PRN (01:50)
[2017-09-07] MEDS ORDERED: OXYTOCIN/NORMAL SALINE 20 UNIT/1,000 ML RTUINJ ONE (02:30)
[2017-09-07] MEDS ORDERED: PENICILLIN G POTASSIUM 2,500,000 UNIT in DEXTROSE 5%-WATER 50 ML IV SCH (02:46)
[2017-09-07] MEDS ORDERED: METHYLERGONOVINE MALEATE INJ/PF 0.2 MG/1 ML AMPULE ONE ×2 (03:08→03:18)
[2017-09-07] MEDS ORDERED: METHYLERGONOVINE MALEATE INJ/PF 0.2 MG/1 ML AMPULE IV ONE (03:09)
[2017-09-07] MEDS ORDERED: ONDANSETRON HCL INJ/PF 4 MG/2 ML SDV IV ONE (03:49)
[2017-09-07] MEDS ORDERED: ONDANSETRON HCL INJ/PF 4 MG/2 ML SDV ONE (03:50)
--- NOTE | 2017-09-07 04:19 | Delivery Summary ---
Del Sum A-C Datetime Report Generated by CPN: 09/07/2017 04:18 DELIVERY PERSONNEL DELIVERY PERSONNEL: [id number] Delivery Doctor:: Rom Owens, DO Labor and Delivery Nurse:: Sharlene Lopez RNtextile screen maker Nurse:: Mary Mclain RN Maintenance Service Supervisor:: Emmy Burgos RN Nursery Nurse:: EFFIE Pascualub Tech/STAFFING SPECIALIST: Tosha Longoria, ST MATERNAL INFORMATION Delivery Anesthesia: Epidural Medications After Delivery: Pitocin Bolus-Please Comment; Pitocin Drip 20 Units/1000ml NSS; Other-Please Comment Meds After Delivery Comment: ns with pitocin 20 units/liter ivf bolus per protocol, cytotec 1000mcg per rectum Estimated Blood Loss (ml): 200 Maternal Complications: Other Other Maternal Complications: no care Provider Comments: of viable male infant in LAUREN position Placenta delievered spontaneous and intact with 3v cord Fundus firm LABOR SUMMARY EDC: 09/09/2017 00:00 No. Babies in Womb: 1 Attempted: No Labor Anesthesia: Epidural LABOR INFORMATION Reason for Induction: Not Applicable Onset of Labor: 09/06/2017 22:46 Complete Dilatation: 09/07/2017 01:03 Oxytocin: N/A Group B Beta Strep: unknown Antibiotics # of Doses: 1 Antibiotics Time of Last Dose: 2299 Name of Antibiotic Given: Penicillin Steroids Given: None Reason Steroids Not Administered: Not Applicable MEMBRANES Membranes Rupture Method: Artificial Rupture of Membranes: 09/07/2017 01:14 Length of Rupture (hr): 0.07 Amniotic Fluid Color: Clear Amniotic Fluid Amount: Moderate Amniotic Fluid Odor: Normal STAGES OF LABOR Stage 1 hr: 2 Stage 1 min: 17 Stage 2 hr: 0 Stage 2 min: 15 Stage 3 hr: 0 Stage 3 min: 2 Total Time in Labor hr: 2 Total Time in Labor min: 34 VAGINAL DELIVERY Episiotomy: None Laceration #1: None Laceration Extension #1: N/A Laceration Repair: Not Applicable Sponge Count Correct: Yes Sharps Count Correct: Yes CSECTION DELIVERY Primary Indication: N/A Secondary Indication: N/A CSection Incidence: N/A Labor: N/A Elective: N/A CSection Incision: N/A BABY A INFORMATION Delivery Date/Time: 09/07/2017 01:18 Method of Delivery: Vaginal Born in Route : No : N/A Forceps: N/A Vacuum Extraction: N/A Shoulder Dystocia : No PRESENTATION/POSITION BABY A Presentation: Cephalic Cephalic Presentation: Vertex Vertex Position: Left Occipital Anterior Breech Presentation: N/A PLACENTA INFORMATION BABY A Placenta Delivery Time : 09/07/2017 01:20 Placenta Method of Delivery: Spontaneous Placenta Status: Delivered SCORES BABY A Heart Rate 1 min: >100 bpm Resp Effort 1 min: Good Cry Reflex Irritability 1 min: Cough or Sneeze or Pulls Away Muscle Tone 1 min: Active Motion Color 1 min: Body [place], Extremities Blue Resuscitation Effort 1 min: Tactile Stimulation SCORE 1 MIN: 9 Heart Rate 5 min: >100 bpm Resp Effort 5 min: Good Cry Reflex Irritability 5 min: Cough or Sneeze or Pulls Away Muscle Tone 5 min: Active Motion Color 5 min: Body [place], Extremities Blue Resuscitation Effort 5 min: Tactile Stimulation SCORE 5 MIN: 9 INFANT INFORMATION BABY A Gestational Age at Delivery: 39.5 Gestational Status: Full Term- 39- 40.6 Weeks Outcome : Liveborn Condition : Stable Infant Sex: Male IDENTIFICATION BABY A Infant Verification Date/Time: 09/07/2017 01:31 ID Band Number: [id number] Mother's Name Verified: Yes RN Verifying : O ledgerwood RN Additional Verifying Personnel: E Weblio RN WEIGHT/LENGTH BABY A Birthweight (gm): 3290 Infant Weight (lb): 7 Weight (oz): 4 Infant Length (in): 21.00 Length (cm): 53.34 CORD INFORMATION BABY A No. Cord Vessels: 3 Nuchal Cord : N/A Cord Blood Taken: Yes-For Eval (Mom's Blood Type - or O+) Infant Suction: Mouth; Nose ASSESSMENT BABY A Complications: Other Infant Complications- Other: terminal meconium Physical Findings at Delivery: Caput Succedaneum Respirations: Appears Normal Skin to Skin: Yes Skin to Skin Time (min): 60 Nurse Executive/ALS Called : No Infant Care By: EFFIE Tiburcio Transferred To: Remains with Mother BABY B INFORMATION : N/A SIGNATURES Signature: with User ID: [email or web address]
--- NOTE | 2017-09-07 04:54 | Admission Physical ---
Datetime Report Generated by CPN: 09/07/2017 04:54 CURRENT ADMISSION Chief Complaint: Uterine Contractions Indication for Induction: Not Applicable Indication for Induction: Term, Intrauterine ; Active Labor; Intact Membranes Admit Plan: Admit to Unit; Initiate Labor Protocol ALLERGIES Medication Allergies: No Medication Allergies: No Known Allergies (09/06/2017) Medication Allergies: No Known Allergies (09/01/2017) Medication Allergies: No Known Allergies (07/09/2017) Medication Allergies: No Known Allergies (12/26/2016) Medication Allergies: No Known Allergies (07/22/2016) Latex: No Latex Allergies Food Allergies: None Environmental Allergies: None OBSTETRICAL HISTORY EDC: 09/09/2017 00:00 : 3 Para: 2 Term: 2 : 0 SAB: 0 IAB: 0 Ectopic: 0 Livin (Annotations: Data stored by CPN on behalf of user) Cesareans: 0 VBACs: 0 Multiple Births: 0 Gestational Diabetes: No Rh Sensitization: No Incompetent Cervix: No VIANEY: No Infertility: No ART Treatment: No Uterine Anomaly: No IUGR: No Hx Previous C/S: No Macrosomia: No Hx Loss/Stillborn: No PIH: No Hx : No Placenta Previa/Abruption: No Depression/PP Depression: Yes PTL/PROM: No Post Hemorrhage: No Current Procedures: Ultrasound; NST Obstetrical History Comments: G1:vaginal-39 weeks-8lb 4oz G2: vaginal-37 weeks-8lbs 4 oz G3: Current SEE RECORDS Alcohol: No Marijuana : No Cocaine: No Other Illicit Drugs: No Cigarettes: Never Smoker. [id number] MEDICAL HISTORY Diabetes: No Blood Transfusion: No Pulmonary Disease (Asthma, TB): No Breast Disease: No Hypertension: No Thread Marker Surgery: No Heart Disease: No Hosp/Surgery: Yes Autoimmune Disorder: No Anesthetic Complications: No Kidney Disease: No Abnormal Pap Smear: No Neuro/Epilepsy: No Psychiatric Disorders: No Other Medical Diseases: No Hepatitis/Liver Disease: No Significant Family History: No Varicosities/Phlebitis: No Trauma/Violence : No Thyroid Dysfunction: No Medical History Comments: luis 12/2016, gallbladder out INFECTIOUS HISTORY Gonorrhea: No Genital Herpes: No Chlamydia: No Tuberculosis: No Syphilis: No Hepatitis: No HIV/AIDS Exposure: No Rash or Viral Illness: No HPV: No PHYSICAL EXAM General: Normal HEENT: Normal Neurologic: Normal Thyroid: Deferred Heart: Normal Lungs: Normal Breast: Deferred Back: Normal Abdomen: Normal Genitourinary Exam: Normal Extremities: Normal DTRs: Normal Pelvic Type: Adequate Vital Signs: Reviewed; Within Normal Limits VAGINAL EXAM Dilatation: 5 Effacement: 80 Station: 0 MEMBRANES Membranes: Intact FETUS A EGA: 39.5 Monitoring: External US FHR- Baseline: 140 Variability: Moderate 6-25bpm Accelerations: 15X15 FHR Category: Category I Presentation: Vertex PLANS FOR LABOR AND DELIVERY Labor and Delivery: None Pain Management: Epidural Feeding Preference: Both Benefit of Breast Feed Discussed: Yes INFORMED CONSENT Signature: with User ID: [email or web address]
[2017-09-07] MEDS: IBUPROFEN 800 MG TABLET PO SCH ×3 (06:11→21:34)
[2017-09-07] MEDS: ACETAMINOPHEN WITH CODEINE #3 TABLET PO PRN ×2 (08:10→20:04)
[2017-09-07] MEDS ORDERED: INFLUENZA ADLT QUAD (36MOS+) 2017-18 VAC 0.5 ML SYR IM PRN (08:20)
--- NOTE | 2017-09-07 09:33 | PDOC PROGRESS REPORT ---
Subjective-OB Subjective: Post Delivery Day: 21 year old. Denies any needs at this time Doing well. Holding son, no complaints. Does not want circ. Breast and bottle feeding. Physical Exam (OB) Vital Signs: Temp Pulse Resp BP Pulse Ox 98.4 F 66 18 105/52 L 99 09/07/17 08:31 09/07/17 08:31 09/07/17 08:31 09/07/17 08:31 09/07/17 08:31 Intake & Output 09/06/17 09/07/17 09/08/17 06:59 06:59 06:59 Weight 88 kg - PIH/Pre-Eclampsia Clonus: Negative - Lochia Lochia Amount: Scant < 10 ml Lochia Color: Rubra/Red - Abdomen Description: Tender, Soft, Round Hernia Present: No Fundal Description: Firm, Non-Midline Describe if Not Midline: shift to upper right, patient urinated, fundus slightly to right Fundal Height: 1/u - 2/u Objective-Diagnostic Laboratory: 09/06/17 22:58 09/06/17 09/06/17 09/06/17 20:25 22:58 22:58 WBC 18.0 H RBC 4.28 Hgb 11.2 L Hct 34.7 L MCV 81 MCH 26.1 L MCHC 32.2 RDW 15.5 H Plt Count 203 Seg Neutrophils % 79.1 H Lymphocytes % 14.0 Monocytes % 6.3 Eosinophils % 0.3 Basophils % 0.3 Absolute Neutrophils 14.2 H Absolute Lymphocytes 2.5 Absolute Monocytes 1.1 Absolute Eosinophils 0.1 Absolute Basophils 0.1 Urine Color YELLOW Urine Appearance SLIGHTLY-CLOUDY Urine pH 7.0 Ur Specific Drew 1.004 Urine Protein NEGATIVE Urine Glucose (UA) NEGATIVE Urine Ketones NEGATIVE Urine Blood LARGE H Urine Nitrite NEGATIVE Ur Leukocyte Esterase MODERATE H Blood Type O POSITIVE Antibody Screen NEGATIVE Assessment and Plan(PN) - Assessment and Plan (1) Acute blood loss anemia Is this a current diagnosis for this admission?: Yes (2) Delivery normal Is this a current diagnosis for this admission?: Yes (3) SROM (spontaneous rupture of membranes) Is this a current diagnosis for this admission?: Yes - Time Spent with Patient Time with patient: Less than 15 minutes Medications reviewed and adjusted accordingly: Yes - Disposition Anticipated Discharge: Home Within: within 48 hours
[2017-09-07] MEDS: DOCUSATE SODIUM 100 MG CAPSULE PO SCH ×2 (09:56→17:43)
[2017-09-07] MEDS: FERROUS SULFATE 325 MG TABLET PO SCH ×2 (09:57→17:43)
[2017-09-07] MEDS: SENNOSIDES/DOCUSATE 8.6-50 MG 1 EACH TABLET PO SCH (09:57)
[2017-09-07] MEDS: PRENATAL VITAMIN W-O CA NO5/FE FUMARATE/FA CAPSULE PO SCH (09:57)
[2017-09-07 10:45] LABS: HEMATOCRIT 31.3 % (36.0-47.0); HEMOGLOBIN 10.3 g/dL (12.0-15.5); HGB HCT DIFFERENCE -0.4; MEAN CORPUSCULAR HEMOGLOBIN 26.7 pg (27.0-33.4); MEAN CORPUSCULAR HGB CONC 33.1 g/dL (32.0-36.0); MEAN CORPUSCULAR VOLUME 81 fl (80-97); RED BLOOD COUNT 3.87 10^6/uL (3.72-5.28); RED CELL DISTRIBUTION WIDTH 15.6 % (11.5-14.0); WHITE BLOOD COUNT 18.4 10^3/uL (4.0-10.5)
[2017-09-08] MEDS: IBUPROFEN 800 MG TABLET PO SCH ×3 (05:22→22:01)
[2017-09-08 07:09] LABS: HEMATOCRIT 29.4 % (36.0-47.0); HEMOGLOBIN 9.5 g/dL (12.0-15.5); HGB HCT DIFFERENCE -0.9; MEAN CORPUSCULAR HEMOGLOBIN 26.6 pg (27.0-33.4); MEAN CORPUSCULAR HGB CONC 32.4 g/dL (32.0-36.0); MEAN CORPUSCULAR VOLUME 82 fl (80-97); RED BLOOD COUNT 3.58 10^6/uL (3.72-5.28); RED CELL DISTRIBUTION WIDTH 15.8 % (11.5-14.0); WHITE BLOOD COUNT 11.9 10^3/uL (4.0-10.5)
--- NOTE | 2017-09-08 09:15 | PDOC PROGRESS REPORT ---
Subjective-OB Subjective: Post Delivery Day: 1 21 year old. Denies any needs at this time, states pain well controlled, lochia is stable, voiding without difficulty. Physical Exam (OB) Vital Signs: Temp Pulse Resp BP Pulse Ox 98.2 F 62 16 103/58 L 100 09/08/17 08:21 09/08/17 08:21 09/08/17 08:21 09/08/17 08:21 09/08/17 08:21 Intake & Output 09/07/17 09/08/17 09/09/17 06:59 06:59 06:59 Weight 88 kg - PIH/Pre-Eclampsia Clonus: Negative - Lochia Lochia Amount: Small 10-25 ml Lochia Color: Rubra/Red - Abdomen Description: Soft, Round Hernia Present: No Fundal Description: Firm, Midline Describe if Not Midline: shift to upper right, patient urinated, fundus slightly to right Fundal Height: u/u - u/2 Objective-Diagnostic Laboratory: 09/08/17 06:41 09/07/17 09/08/17 10:37 06:41 WBC 18.4 H 11.9 H RBC 3.87 3.58 L Hgb 10.3 L 9.5 L Hct 31.3 L 29.4 L MCV 81 82 MCH 26.7 L 26.6 L MCHC 33.1 32.4 RDW 15.6 H 15.8 H Plt Count 151 159 Assessment and Plan(PN) - Assessment and Plan (1) Acute blood loss anemia Is this a current diagnosis for this admission?: Yes Plan: ferrous sulfate increase dietary iron (2) Delivery normal Is this a current diagnosis for this admission?: Yes Plan: routine pp care - Time Spent with Patient Time with patient: Less than 15 minutes Critical Time spent with patient: Less than 15 minutes Medications reviewed and adjusted accordingly: Yes - Disposition Anticipated Discharge: Home Within: within 24 hours
[2017-09-08] MEDS: DOCUSATE SODIUM 100 MG CAPSULE PO SCH ×2 (10:36→17:49)
[2017-09-08] MEDS: FERROUS SULFATE 325 MG TABLET PO SCH ×2 (10:36→17:49)
[2017-09-08] MEDS: PRENATAL VITAMIN W-O CA NO5/FE FUMARATE/FA CAPSULE PO SCH (10:36)
[2017-09-08] MEDS: SENNOSIDES/DOCUSATE 8.6-50 MG 1 EACH TABLET PO SCH (10:37)
[2017-09-08] MEDS: ACETAMINOPHEN WITH CODEINE #3 TABLET PO PRN ×3 (13:28→23:20)
[2017-09-09] MEDS: IBUPROFEN 800 MG TABLET PO SCH ×2 (05:04→14:10)
[2017-09-09 05:44] LABS: ABSOLUTE BASOPHILS # (AUTO) 0.1 10^3/uL (0.0-0.2); ABSOLUTE EOSINOPHILS # (AUTO) 0.4 10^3/uL (0.0-0.6); ABSOLUTE LYMPHOCYTES (AUTO) 2.7 10^3/uL (0.5-4.7); ABSOLUTE MONOCYTES (AUTO) 0.8 10^3/uL (0.1-1.4); ABSOLUTE NEUT (AUTO) 7.4 10^3/uL (1.7-8.2); EOSINOPHILS % (AUTO) 3.7 % (0-6); HEMATOCRIT 29.5 % (36.0-47.0); HEMOGLOBIN 9.7 g/dL (12.0-15.5); HGB HCT DIFFERENCE -0.4; LYMPHOCYTES % (AUTO) 23.7 % (13-45); MEAN CORPUSCULAR HEMOGLOBIN 27.2 pg (27.0-33.4); MEAN CORPUSCULAR VOLUME 82 fl (80-97); MONOCYTES % (AUTO) 6.6 % (3-13); RED BLOOD COUNT 3.58 10^6/uL (3.72-5.28); RED CELL DISTRIBUTION WIDTH 15.8 % (11.5-14.0); WHITE BLOOD COUNT 11.4 10^3/uL (4.0-10.5)
[2017-09-09] MEDS ORDERED: NORMAL SALINE 500 ML IV ONE (05:45)
[2017-09-09] MEDS ORDERED: MECLIZINE HCL 25 MG TABLET PO PRN (06:45)
[2017-09-09 08:14] VITALS: BP 99/61
[2017-09-09] MEDS: FERROUS SULFATE 325 MG TABLET PO SCH (09:40)
[2017-09-09] MEDS: SENNOSIDES/DOCUSATE 8.6-50 MG 1 EACH TABLET PO SCH (09:40)
[2017-09-09] MEDS: PRENATAL VITAMIN W-O CA NO5/FE FUMARATE/FA CAPSULE PO SCH (09:40)
[2017-09-09] MEDS: DOCUSATE SODIUM 100 MG CAPSULE PO SCH (09:40)
--- NOTE | 2017-09-09 10:11 | PDOC PROGRESS REPORT ---
Subjective-OB Subjective: Post Delivery Day: 21 year old. Denies any needs at this time Doing well, ready to go home, bottle feeding, voiding, ambulating Physical Exam (OB) Vital Signs: Temp Pulse Resp BP Pulse Ox 98.2 F 61 14 99/61 L 100 09/09/17 07:39 09/09/17 07:39 09/09/17 07:39 09/09/17 07:39 09/09/17 07:39 Intake & Output 09/08/17 09/09/17 09/10/17 06:59 06:59 06:59 Intake Total 600 Balance 600 - PIH/Pre-Eclampsia DTR's: 2 + Clonus: Negative Headache: Absent Epigastric Pain: No Visual Changes: No - Lochia Lochia Amount: Scant < 10 ml Lochia Color: Rubra/Red - Abdomen Description: Soft, Round Hernia Present: No Fundal Description: Firm, Midline Describe if Not Midline: shift to upper right, patient urinated, fundus slightly to right Fundal Height: u/u - u/2 Objective-Diagnostic Laboratory: 09/09/17 05:36 09/09/17 05:36 WBC 11.4 H RBC 3.58 L Hgb 9.7 L Hct 29.5 L MCV 82 MCH 27.2 MCHC 33.0 RDW 15.8 H Plt Count 170 Seg Neutrophils % 65.0 Lymphocytes % 23.7 Monocytes % 6.6 Eosinophils % 3.7 Basophils % 1.0 Absolute Neutrophils 7.4 Absolute Lymphocytes 2.7 Absolute Monocytes 0.8 Absolute Eosinophils 0.4 Absolute Basophils 0.1 Assessment and Plan(PN) - Assessment and Plan (1) Acute blood loss anemia Is this a current diagnosis for this admission?: Yes (2) Delivery normal Is this a current diagnosis for this admission?: Yes (3) SROM (spontaneous rupture of membranes) Is this a current diagnosis for this admission?: Yes - Time Spent with Patient Time with patient: Less than 15 minutes Medications reviewed and adjusted accordingly: Yes - Disposition Anticipated Discharge: Home Within: Other - home today
--- NOTE | 2017-09-09 10:14 | PDOC DISCHARGE SUMMARY ---
Final Diagnosis Discharge Date: 09/09/17 - Final Diagnosis (1) Acute blood loss anemia Is this a current diagnosis for this admission?: Yes (2) Delivery normal Is this a current diagnosis for this admission?: Yes (3) SROM (spontaneous rupture of membranes) Is this a current diagnosis for this admission?: Yes Discharge Data - Discharge Medication Home Medications: Vit Calc,Iron,Folic [ Vitamins] 1 each PO DAILY 01/24/17 Gestational Age: 39.5 Reason(s) for Admission: Onset of Labor Admission Note: No care Procedures: None Intrapartum Procedure(s): Spontaneous Vaginal Delivery - Data Baby 1 Male at 1 minute: 9 at 5 minutes: 9 Weight: 3.289 kg Home with Mother: Yes Complications: No - Diagnosis Test Laboratory: Temp Pulse Resp BP Pulse Ox 98.2 F 61 14 99/61 L 100 09/09/17 07:39 09/09/17 07:39 09/09/17 07:39 09/09/17 07:39 09/09/17 07:39 09/06/17 09/06/17 09/07/17 20:25 22:58 10:37 RBC 4.28 3.87 Hgb 11.2 L 10.3 L Hct 34.7 L 31.3 L Urine Opiates Screen NEGATIVE 09/08/17 09/09/17 06:41 05:36 RBC 3.58 L 3.58 L Hgb 9.5 L 9.7 L Hct 29.4 L 29.5 L Urine Opiates Screen - Discharge information/Instructions Discharge Activity: Activity As Tolerated, No Lifting Over 10 Pounds, Pelvic Rest Discharge Diet: As Tolerated, Regular Disposition: HOME, SELF-CARE Follow up with: [facility] in: 4, Weeks
== END 2017-09-09 14:46 | disposition home or self-care (01) | DRG 775 ==
LOC: LC 20:17 → LR 22:46 → 2S 09-07 04:45
PROVIDERS: ADMIT Obstetrics & Gynecology; ATTEND Obstetrics & Gynecology
PROC: 10E0XZZ Delivery of Products of Conception, External Approach (ICD-10-PCS; principal; 2017-09-07)
PROC: 3E0234Z Introduction of Serum, Toxoid and Vaccine into Muscle, Percutaneous Approach (ICD-10-PCS; 2017-09-09)
DX: O77.0 Labor and delivery complicated by meconium in amniotic fluid (principal); D62 Acute posthemorrhagic anemia; O99.02 Anemia complicating childbirth; Z3A.39 39 weeks gestation of pregnancy; Z37.0 Single live birth; Z23 Encounter for immunization
CPT/HCPCS: 36415; 80307; 81005; 85025; 85027; 86592; 86850; 86900; 86901; 90686; 90715; J2210; J2405; J2540; J2590; J3490; J7040

== ENCOUNTER 2017-12-12 15:29 | Emergency (ER) | payer SELFPAY ==
[2017-12-12] MEDS ORDERED: TETRACAINE HCL 0.5% OPH SOLN 2 ML OS ONE (16:08)
[2017-12-12] MEDS ORDERED: TETRACAINE HCL 0.5% OPH SOLN 2 ML ONE (16:10)
--- NOTE | 2017-12-12 16:56 | ER Document Report ---
ED Eye Complaint - General Chief Complaint: Eye Pain Stated Complaint: EYE PAIN Time Seen by Provider: 12/12/17 15:55 Mode of Arrival: Ambulatory Information source: Patient Notes: 21-year-old female presented to ED for complaint of left eye pain for 3 days. She is alert and oriented speaks in full even sentences. She denies any injuries, drainage redness or fever. She states the eye hurts constantly. She does ambulate with a steady gait. TRAVEL OUTSIDE OF THE [place] IN LAST 30 DAYS: No - HPI Onset: Other - Three days Eye location: Left Injury: No Quality of pain: Sharp, Throbbing Severity: Severe Pain Level: 5 Safety glasses worn: No Contact lenses worn: No Associated symptoms: Pain, Photophobia, Decreased vision. denies: Burning, Itching, Redness, Matting, Eyelid swelling, Orbital swelling, Foreign body sensation - Related Data Allergies/Adverse Reactions: No Known Allergies Allergy (Verified 09/06/17 20:27) Past Medical History - General Information source: Patient - Social History Smoking Status: Never Smoker Cigarette use (# per day): No Chew tobacco use (# tins/day): No Smoking Education Provided: No Frequency of alcohol use: None Drug Abuse: None Lives with: Family Family History: Reviewed & Not Pertinent, Other - Mother had gallbladder removed. No family history of anesthesia problems. 5-month-old healthy baby boy. Patient has suicidal ideation: No Patient has homicidal ideation: No - Past Medical History Cardiac Medical History: Reports: None Pulmonary Medical History: Reports: None EENT Medical History: Reports: Eyes - States she was told in [place] that she had problems with the optic nerve Neurological Medical History: Reports: None Endocrine Medical History: Reports: None Renal/ Medical History: Reports: None Malignancy Medical History: Reports: None GI Medical History: Reports: Hx Gastroesophageal Reflux Disease Musculoskeltal Medical History: Reports None Skin Medical History: Reports None Psychiatric Medical History: Reports: None Traumatic Medical History: Reports: None Infectious Medical History: Reports: None Past Surgical History: Reports: Hx Cholecystectomy - 10/24 - Immunizations Hx Diphtheria, Pertussis, Tetanus Vaccination: Yes Review of Systems - Review of Systems Constitutional: No symptoms reported EENT: No symptoms reported, Eye pain, Blurred vision. denies: Eye discharge, Nose congestion, Nose discharge, Sinus pressure, Sinus discharge Cardiovascular: No symptoms reported Respiratory: No symptoms reported Gastrointestinal: No symptoms reported Genitourinary: No symptoms reported Female Genitourinary: No symptoms reported Musculoskeletal: No symptoms reported Skin: No symptoms reported Hematologic/Lymphatic: No symptoms reported Neurological/Psychological: No symptoms reported Physical Exam - Vital signs Vitals: Temp Pulse Resp BP Pulse Ox 97.7 F 71 16 101/53 L 98 12/12/17 15:35 12/12/17 15:35 12/12/17 15:35 12/12/17 15:35 12/12/17 15:35 Interpretation: Normal - General General appearance: Appears well, Alert - HEENT Head: Normocephalic, Atraumatic Eyes: Normal Conjunctiva: No: Injected, Purulent discharge Cornea: Normal. No: Corneal abrasion, Corneal ulcer, Dendrite, Embedded foreign body, Flourescein stain uptake, Superficial foreign body Extraocular movements intact: Yes Pupils: Dilated - Left eye. No: PERRL - Left eye dilated and reacting erratic to light Visual acuity- Right eye: 20/20 Visual acuity- Left eye: 20/100 Visual acuity- Both eyes: 20/20 Ears: Normal External canal: Normal Tympanic membrane: Normal Sinus: Normal Nasal: Normal Mouth/Lips: Normal Mucous membranes: Normal Pharynx: Normal Neck: Normal - Respiratory Respiratory status: No respiratory distress Chest status: Nontender Breath sounds: Normal Chest palpation: Normal - Cardiovascular Rhythm: Regular Heart sounds: Normal auscultation Murmur: No - Abdominal Inspection: Normal Distension: No distension Bowel sounds: Normal Tenderness: Nontender Organomegaly: No organomegaly - Back Back: Normal, Nontender - Extremities General upper extremity: Normal inspection, Nontender, Normal color, Normal ROM , Normal temperature General lower extremity: Normal inspection, Nontender, Normal color, Normal ROM , Normal temperature, Normal weight bearing. No: Franky's sign - Neurological Neuro grossly intact: Yes Cognition: Normal Orientation: AAOx4 Shyla Coma Scale Eye Opening: Spontaneous Jermyn Coma Scale Verbal: Oriented Shyla Coma Scale Motor: Obeys Commands Shyla Coma Scale Total: 15 Speech: Normal Motor strength normal: LUE, RUE, LLE, RLE Sensory: Normal - Psychological Associated symptoms: Normal affect, Normal mood - Skin Skin Temperature: Warm Skin Moisture: Dry Skin Color: Normal Course - Re-evaluation Re-evalutation: 01/13/18 18:[address] Biggs after first examined patient. He recommended a CT of the head to rule out any abnormalities in the brain causing this pain. CT is negative. Discussed the CT with Dr. Biggs and the patient. Written report given to the patient to follow-up with ophthalmology. Patient discharged home with a 6 pack of [place] to follow-up with soda jerker on Thursday. - Vital Signs Vital signs: Temp Pulse Resp BP Pulse Ox 98.0 F 79 18 115/75 99 12/12/17 18:58 12/12/17 18:58 12/12/17 18:58 12/12/17 18:58 12/12/17 18:58 - Diagnostic Test Radiology reviewed: Image reviewed, Reports reviewed Discharge - Discharge Clinical Impression: Pain around left eye Condition: Stable Disposition: HOME, SELF-CARE Additional Instructions: You were seen today for pain around your left eye. He states she had this same pain in [place] and were examined and told to follow-up with the soda jerker. He states she followed up with an soda jerker in [facility] about 3 months ago for the same pain. There are no acute changes to your brain. Your eye exam is negative except for the dilated pupil which you stated has been present in your other examinations. Ibuprofen Ibuprofen is an excellent, safe drug for pain control. In addition, it has potent antiinflammatory effects which are beneficial, especially in the treatment of injuries, arthritis, or tendonitis. It's best to take ibuprofen with food. Persons with ulcer disease or allergy to aspirin should notify their physician of this before taking ibuprofen. Take the medication exactly as prescribed. Don't take additional doses unless instructed to do so by your doctor. If you develop wheezing, shortness of breath, hives, faintness, stomach pain, vomiting, or dark black stools, return for re-evaluation at once. Oral Narcotic Medication You have been given a [place] dispense pack which you can take 1 every 8 hours as needed for pain control. This medication is a narcotic. It's best taken with food, as nausea can result if taken on an empty stomach. Don't operate machinery or drive within six hours of taking this medication. Do not combine this medicine with alcohol, or with any medication which can cause sedation (such as cold tablets or sleeping pills) unless you get permission from the physician. Narcotics tend to cause constipation. If possible, drink plenty of fluids and eat a diet high in fiber and fruits. Referrals: ROBI SANCHEZ MD [ACTIVE STAFF] - Follow up as needed
--- NOTE | 2017-12-12 17:39 | RADIOLOGY REPORT (SQ) ---
EXAM DESCRIPTION: CT HEAD WITHOUT COMPLETED DATE/TIME: 12/12/2017 5:32 pm REASON FOR STUDY: pain around and behind left eye COMPARISON: 11/02/2015. TECHNIQUE: Axial images acquired through the brain without intravenous contrast. Images reviewed wi th bone, brain and subdural windows. Images stored on PACS. All CT scanners at this facility use dose modulation, iterative reconstruction, and/or weight based d osing when appropriate to reduce radiation dose to as low as reasonably achievable (ALARA). [facility]: Dose Right [facility]: CareDose [facility]: Dose Right [facility]: Teradose 4D [facility]: [employer] RADIATION DOSE: mGy. LIMITATIONS: None. FINDINGS: VENTRICLES: Normal size and contour. CEREBRUM: No masses. No hemorrhage. No midline shift. No evidence for acute infarction. Normal gra y/white matter differentiation. No areas of low density in the white matter. CEREBELLUM: No masses. No hemorrhage. No alteration of density. No evidence for acute infarction. EXTRAAXIAL SPACES: No fluid collections. No masses. ORBITS AND GLOBE: No intra- or extraconal masses. Normal contour of globe without masses. CALVARIUM: No fracture. PARANASAL SINUSES: No fluid or mucosal thickening. SOFT TISSUES: No mass or hematoma. OTHER: No other significant finding. IMPRESSION: NORMAL BRAIN CT WITHOUT CONTRAST. EVIDENCE OF ACUTE STROKE: NO. COMMENT: Quality ID # [id number]: Final reports with documentation of one or more dose reduction techniques (e.g., Automated exposure control, adjustment of the mA and/or kV according to patient size, use of iterative reconstruction technique) TECHNICAL DOCUMENTATION: JOB ID: [id number] [employer]- All Rights Reserved
[2017-12-12] MEDS ORDERED: HYDROCODONE/ACETAMINOPHEN 5-325 MG (6 TAB/ER DISP) PO PRN (18:23)
[2017-12-12 19:02] VITALS: BP 115/75
== END 2017-12-12 19:02 | disposition home or self-care (01) ==
LOC: ER 15:29
DX: H57.12 Ocular pain, left eye (principal); H53.8 Other visual disturbances; H57.04 Mydriasis
CPT/HCPCS: 70450; 99283

== ENCOUNTER 2018-01-11 00:59 | Emergency (ER) | payer SELFPAY ==
[2018-01-11] MEDS ORDERED: TRAMADOL HCL 50 MG TABLET PO ONE (02:21)
[2018-01-11 02:31] LABS: ABSOLUTE BASOPHILS # (AUTO) 0.1 10^3/uL (0.0-0.2); ABSOLUTE EOSINOPHILS # (AUTO) 0.3 10^3/uL (0.0-0.6); ABSOLUTE MONOCYTES (AUTO) 0.7 10^3/uL (0.1-1.4); ABSOLUTE NEUT (AUTO) 5.1 10^3/uL (1.7-8.2); BASOPHILS % (AUTO) 1.1 % (0-2); EOSINOPHILS % (AUTO) 3.1 % (0-6); LYMPHOCYTES % (AUTO) 32.7 % (13-45); MEAN CORPUSCULAR HEMOGLOBIN 27.7 pg (27.0-33.4); MEAN CORPUSCULAR HGB CONC 33.4 g/dL (32.0-36.0); MEAN CORPUSCULAR VOLUME 83 fl (80-97); MONOCYTES % (AUTO) 7.8 % (3-13); PLATELET COUNT 330 10^3/uL (150-450); RED BLOOD COUNT 4.35 10^6/uL (3.72-5.28); RED CELL DISTRIBUTION WIDTH 14.8 % (11.5-14.0); SEGMENTED NEUTROPHILS % (AUTO) 55.3 % (42-78); TOTAL CELLS COUNTED % (AUTO) 100 %; WHITE BLOOD COUNT 9.3 10^3/uL (4.0-10.5)
--- NOTE | 2018-01-11 02:42 | RADIOLOGY REPORT (SQ) ---
EXAM DESCRIPTION: CT FACIAL AREA WITHOUT CLINICAL HISTORY: right facial pain COMPARISON: None available TECHNIQUE: Axial CT of the facial bones obtained without contrast. FINDINGS: Visualized orbits and globes are unremarkable. Orbital morales and floors are intact. No fracture of the maxillary antral morales. Maxillary hard palate, pterygoid plates, zygomatic processes, and mandible are intact. Mucosal thickening of the right frontal sinus, right ethmoid air cells, right sphenoid sinus, and right maxillary sinus without air-fluid level identified. Soft tissue/mucosal obstruction of the right ostiomeatal complex. No lymphadenopathy identified. No abnormality in the oropharynx, nasopharynx, hypopharynx. The epiglottis is not enlarged. The visualized parotid glands and submandibular glands are unremarkable. No abnormalities of visualized cervical spine. No gross abnormalities of the visualized intracranial contents. No significant subcutaneous facial soft tissue swelling. DLP: 547.13 mGy-cm IMPRESSION: 1. Findings compatible with chronic inflammatory paranasal sinus disease. 2. No facial bone fracture identified. This exam was performed according to our departmental dose-optimization program, which includes automated exposure control, adjustment of the mA and/or kV according to patient size and/or use of iterative reconstruction technique.
[2018-01-11 03:00] LABS: ANION GAP 12 (5-19); BLOOD UREA NITROGEN 15 mg/dL (7-20); CALCIUM 10.6 mg/dL (8.4-10.2); CARBON DIOXIDE 24 mmol/L (22-30); CHLORIDE 106 mmol/L (98-107); GLUCOSE 91 mg/dL (75-110); POTASSIUM 4.1 mmol/L (3.6-5.0); SODIUM 142.2 mmol/L (137-145)
[2018-01-11] MEDS ORDERED: AMOXICILLIN TRIHYDRATE 500 MG CAPSULE PO ONE (04:12)
--- NOTE | 2018-01-11 04:12 | ER Document Report ---
ED General - General Chief Complaint: Facial Swelling Stated Complaint: FACIAL SWELLING Time Seen by Provider: 01/11/18 02:02 TRAVEL OUTSIDE OF THE [place] IN LAST 30 DAYS: No - HPI Patient complains to provider of: Right facial pain right facial swelling Notes: Patient coming in for mild right facial swelling and pain states ongoing for the last 2 days. Denies any fevers chills nausea vomiting diarrhea. Denies any history of facial pain. Patient denies any dental pain. Upon my evaluation patient resting comfortably denies any sick contacts. - Related Data Allergies/Adverse Reactions: No Known Allergies Allergy (Verified 09/06/17 20:27) Past Medical History - Social History Smoking Status: Never Smoker Chew tobacco use (# tins/day): No Frequency of alcohol use: None Drug Abuse: None Family History: Reviewed & Not Pertinent, Other - Mother had gallbladder removed. No family history of anesthesia problems. 5-month-old healthy baby boy. Patient has suicidal ideation: No Patient has homicidal ideation: No Renal/ Medical History: Denies: Hx Peritoneal Dialysis GI Medical History: Reports: Hx Gastroesophageal Reflux Disease Psychiatric Medical History: Denies: Hx Depression Past Surgical History: Reports: Hx Cholecystectomy - 10/24 - Immunizations Hx Diphtheria, Pertussis, Tetanus Vaccination: Yes Review of Systems - Review of Systems Constitutional: No symptoms reported EENT: Sinus pressure Cardiovascular: No symptoms reported Respiratory: No symptoms reported Gastrointestinal: No symptoms reported Genitourinary: No symptoms reported Female Genitourinary: No symptoms reported Musculoskeletal: No symptoms reported Skin: No symptoms reported Hematologic/Lymphatic: No symptoms reported Neurological/Psychological: No symptoms reported Physical Exam - Vital signs Vitals: Temp Pulse Resp BP Pulse Ox 98.6 F 77 18 99/68 L 99 01/11/18 01:10 01/11/18 01:10 01/11/18 01:10 01/11/18 01:10 01/11/18 01:10 Interpretation: Normal - General General appearance: Appears well, Alert - HEENT Head: Normocephalic, Atraumatic, Other - No overt swelling of the face seen Eyes: Normal Conjunctiva: Normal Cornea: Normal Extraocular movements intact: Yes Pupils: PERRL Sinus: Other Nasal: Normal Neck: Other - Tenderness to palpation of the frontal maxillary sinuses on the right lymphadenopathy on the right side with fluctuance - Respiratory Respiratory status: No respiratory distress Chest status: Nontender Breath sounds: Normal Chest palpation: Normal - Cardiovascular Rhythm: Regular Heart sounds: Normal auscultation Murmur: No - Abdominal Inspection: Normal Distension: No distension Bowel sounds: Normal Tenderness: Nontender Organomegaly: No organomegaly - Back Back: Normal, Nontender - Extremities General upper extremity: Normal inspection, Nontender, Normal color, Normal ROM , Normal temperature General lower extremity: Normal inspection, Nontender, Normal color, Normal ROM , Normal temperature, Normal weight bearing. No: Franky's sign - Neurological Neuro grossly intact: Yes Cognition: Normal Orientation: AAOx4 Shyla Coma Scale Eye Opening: Spontaneous Shyla Coma Scale Verbal: Oriented [employer] Coma Scale Motor: Obeys Commands Shyla Coma Scale Total: 15 Speech: Normal Motor strength normal: LUE, RUE, LLE, RLE Sensory: Normal - Psychological Associated symptoms: Normal affect, Normal mood - Skin Skin Temperature: Warm Skin Moisture: Dry Skin Color: Normal Course - Re-evaluation Re-evalutation: 01/11/18 05:32 CT scan shows chronic sinusitis however with symptoms starting 2 days ago more likely acute mustard patient on amoxicillin patient was encouraged follow-up PCP for ENT referral. - Vital Signs Vital signs: Temp Pulse Resp BP Pulse Ox 97.8 F 84 20 108/78 96 01/11/18 04:53 01/11/18 04:53 01/11/18 04:53 01/11/18 04:53 01/11/18 04:53 - Laboratory Result Diagrams: 01/11/18 02:15 01/11/18 02:15 Laboratory results interpreted by me: 01/11/18 01/11/18 02:15 02:15 RDW 14.8 H Calcium 10.6 H Discharge - Discharge Clinical Impression: Lymphadenopathy Sinusitis, acute Qualifiers: Sinusitis location: unspecified location Recurrence: not specified as recurrent Qualified Code(s): J01.90 - Acute sinusitis, unspecified Condition: Good Disposition: HOME, SELF-CARE Instructions: Lymphadenopathy ([facility]), Oral Narcotic Medication ([facility]), Sinusitis ([facility]) Additional Instructions: Your CAT scan today shows signs of a sinus infection on the right side. This is more likely the reason we have enlargement of lymph nodes on the right side of her neck. Please follow-up with your primary care physician take antibiotics as prescribed. Would recommend follow-up with ENT you may need referral from your primary care physician. Take Tylenol and Motrin for pain take the Ultram provided for severe pain. Prescriptions: Amoxicillin 500 mg PO TID #30 capsule Tramadol HCl [Ultram 50 mg Tablet] 50 mg PO ASDIR PRN #20 tablet PRN Reason: Forms: Return to Work
[2018-01-11 04:54] VITALS: BP 108/78
== END 2018-01-11 04:54 | disposition home or self-care (01) ==
LOC: ER 00:59
DX: J01.90 Acute sinusitis, unspecified (principal); R59.1 Generalized enlarged lymph nodes; R51 Headache
CPT/HCPCS: 36415; 70486; 80048; 84702; 85025; 86308; 87040; 99284

== ENCOUNTER 2018-07-12 22:58 | Emergency (ER) | payer SELFPAY ==
[2018-07-13 00:35] LABS: ABSOLUTE BASOPHILS # (AUTO) 0.1 10^3/uL (0.0-0.2); ABSOLUTE EOSINOPHILS # (AUTO) 0.3 10^3/uL (0.0-0.6); ABSOLUTE LYMPHOCYTES (AUTO) 2.6 10^3/uL (0.5-4.7); ABSOLUTE MONOCYTES (AUTO) 0.5 10^3/uL (0.1-1.4); ABSOLUTE NEUT (AUTO) 7.1 10^3/uL (1.7-8.2); BASOPHILS % (AUTO) 0.7 % (0-2); EOSINOPHILS % (AUTO) 2.7 % (0-6); HEMATOCRIT 38.1 % (36.0-47.0); HEMOGLOBIN 12.6 g/dL (12.0-15.5); LYMPHOCYTES % (AUTO) 24.6 % (13-45); MEAN CORPUSCULAR HEMOGLOBIN 28.8 pg (27.0-33.4); MEAN CORPUSCULAR HGB CONC 32.9 g/dL (32.0-36.0); MEAN CORPUSCULAR VOLUME 87 fl (80-97); MONOCYTES % (AUTO) 5.1 % (3-13); PLATELET COUNT 312 10^3/uL (150-450); RED BLOOD COUNT 4.37 10^6/uL (3.72-5.28); RED CELL DISTRIBUTION WIDTH 14.2 % (11.5-14.0); SEGMENTED NEUTROPHILS % (AUTO) 66.9 % (42-78); TOTAL CELLS COUNTED % (AUTO) 100 %; WHITE BLOOD COUNT 10.7 10^3/uL (4.0-10.5)
[2018-07-13 00:46] LABS: APPEARANCE,URINE CLEAR; BILIRUBIN,URINE NEGATIVE (NEGATIVE); COLOR,URINE YELLOW; GLUCOSE, URINE NEGATIVE (NEGATIVE); KETONES,URINE NEGATIVE (NEGATIVE); LEUKOCYTE ESTERASE,URINE TRACE (NEGATIVE); NITRITE,URINE NEGATIVE (NEGATIVE); PROTEIN,URINE NEGATIVE (NEGATIVE); URINE SPECIFIC GRAVITY 1.019
[2018-07-13 01:10] LABS: ALANINE AMINOTRANSFERASE 49 U/L (9-52); ALBUMIN 4.4 g/dL (3.5-5.0); ALKALINE PHOSPHATASE 75 U/L (38-126); ANION GAP 14 (5-19); ASPARTATE AMINO TRANSFERASE 38 U/L (14-36); BILIRUBIN,DIRECT 0.2 mg/dL (0.0-0.4); BILIRUBIN,TOTAL 0.5 mg/dL (0.2-1.3); BLOOD UREA NITROGEN 13 mg/dL (7-20); CALCIUM 9.9 mg/dL (8.4-10.2); CARBON DIOXIDE 24 mmol/L (22-30); CHLORIDE 106 mmol/L (98-107); GLUCOSE 91 mg/dL (75-110); LIPASE 69.6 U/L (23-300); SODIUM 143.8 mmol/L (137-145); TOTAL PROTEIN 7.5 g/dL (6.3-8.2)
[2018-07-13] MEDS ORDERED: LACTULOSE SYRUP 20 GM/30 ML UDCUP PO ONE (03:09)
[2018-07-13] MEDS ORDERED: ONDANSETRON ODT 4 MG TAB (6 TAB/ER DISP) PO PRN (03:10)
--- NOTE | 2018-07-13 04:34 | ER Document Report ---
ED General - General Chief Complaint: Upper Abdominal Pain Stated Complaint: UPPER ABDOMINAL PAIN Time Seen by Provider: 07/13/18 02:28 Notes: Patient is a 22-year-old female with a past surgical history of a cholecystectomy, no chronic medical problems who presents with 2 days of intermittent right flank and epigastric abdominal pain. The patient describes this pain as a cramping, aching, intermittent pain. She states that eating seems to worsen the pain. She has tried taking ibuprofen with moderate improvement of the pain. She denies history of similar symptoms in the past. She notes that she has a bowel movement approximately once every 2-3 days and that this has been her typical pattern for many years. She denies any associated fever or constitutional symptoms. No dysuria, vaginal bleeding or vaginal discharge. She denies any lower abdominal pain. She has not seen her general doctor regarding today's concerns. TRAVEL OUTSIDE OF THE [place] IN LAST 30 DAYS: No - Related Data Allergies/Adverse Reactions: No Known Allergies Allergy (Verified 09/06/17 20:27) Past Medical History - General Information source: Patient - Social History Smoking Status: Never Smoker Frequency of alcohol use: None Drug Abuse: None Lives with: Family Family History: Reviewed & Not Pertinent, Other - Mother had gallbladder removed. No family history of anesthesia problems. 5-month-old healthy baby boy. Renal/ Medical History: Denies: Hx Peritoneal Dialysis GI Medical History: Reports: Hx Gastroesophageal Reflux Disease Psychiatric Medical History: Denies: Hx Depression Past Surgical History: Reports: Hx Cholecystectomy - 10/24 - Immunizations Hx Diphtheria, Pertussis, Tetanus Vaccination: Yes Review of Systems - Review of Systems Notes: Constitutional: Negative for fever. HENT: Negative for sore throat. Eyes: Negative for visual changes. Cardiovascular: Negative for chest pain. Respiratory: Negative for shortness of breath. Gastrointestinal: Positive for intermittent abdominal pain and vomiting Genitourinary: Negative for dysuria. Musculoskeletal: Negative for back pain. Skin: Negative for rash. Neurological: Negative for headaches, weakness or numbness. 10 point ROS negative except as marked above and in HPI. Physical Exam - Vital signs Vitals: Temp Pulse Resp BP Pulse Ox 99.5 F 76 16 114/66 100 07/12/18 23:02 07/12/18 23:02 07/12/18 23:02 07/12/18 23:02 07/12/18 23:02 Interpretation: Normal Notes: PHYSICAL EXAMINATION: GENERAL: Well-appearing, well-nourished and in no acute distress. HEAD: Atraumatic, normocephalic. EYES: Pupils equal round and reactive to light, extraocular movements intact, sclera anicteric, conjunctiva are normal. ENT: nares patent, oropharynx clear without exudates. Moist mucous membranes. NECK: Normal range of motion, supple without lymphadenopathy LUNGS: Breath sounds clear to auscultation bilaterally and equal. No wheezes rales or rhonchi. HEART: Regular rate and rhythm without murmurs ABDOMEN: Soft, nontender, normoactive bowel sounds. No guarding, no rebound. No masses appreciated. EXTREMITIES: Normal range of motion, no pitting or edema. No cyanosis. NEUROLOGICAL: No focal neurological deficits. Moves all extremities spontaneously and on command. PSYCH: Normal mood, normal affect. SKIN: Warm, Dry, normal turgor, no rashes or lesions noted. Course - Re-evaluation Re-evalutation: 07/13/18 04:30 Patient presents with intermittent generalized abdominal discomfort most located to the epigastrium and right flank. Patient has no focal abdominal tenderness on examination. Patient has a remote history of a cholecystectomy removing biliary pathology from the differential. Lipase is normal. No LFT changes. Based on history and exam, I do not suspect ACS, pulmonary embolus, SBO, mesenteric ischemia, acute pancreatitis, biliary pathology, or an abdominal aortic dissection. Two-view of the abdomen does show moderate constipation and patient does report that she typically only has 1-2 bowel movements per week. I have emphasized with the patient that the exact etiology of her abdominal pain is uncertain at this time and that she should have a very low threshold to return to the emergency department given this diagnostic uncertainty. I have explained her that several considerations at this time point include constipation and upper stomach irritation. I recommended that she initiate famotidine and MiraLAX and monitor to see if these do provide her symptomatic relief. At this time will discharge with return precautions and follow-up recommendations. Verbal discharge instructions given a the bedside and opportunity for questions given. Medication warnings reviewed. Patient is in agreement with this plan and has verbalized understanding of return precautions and the need for primary care follow-up in the next 24-72 hours. - Vital Signs Vital signs: Temp Pulse Resp BP Pulse Ox 99.5 F 76 16 114/66 100 07/12/18 23:02 07/12/18 23:02 07/12/18 23:02 07/12/18 23:02 07/12/18 23:02 - Laboratory Result Diagrams: 07/12/18 23:35 07/12/18 23:35 Laboratory results interpreted by me: 07/12/18 07/12/18 07/12/18 23:35 23:35 23:35 WBC 10.7 H RDW 14.2 H AST 38 H Urine Urobilinogen 2.0 H Ur Leukocyte Esterase TRACE H - Diagnostic Test Radiology reviewed: Image reviewed, Reports reviewed Radiology results interpreted by me: 07/13/18 04:32 2 view of the abdomen: Moderate colonic stool burden, no evidence of obstruction or perforation. Discharge - Discharge Clinical Impression: Generalized abdominal pain, Intermittent abdominal pain Nausea and vomiting Qualifiers: Vomiting type: unspecified Vomiting Intractability: non-intractable Qualified Code(s): R11.2 - Nausea with vomiting, unspecified Condition: Good Disposition: HOME, SELF-CARE Additional Instructions: You have been seen in the Emergency Department (ED) for abdominal pain. Your evaluation did not identify a clear cause of your symptoms but was generally reassuring. Please begin taking 1 capful of MiraLAX daily (the generic equivalent [id number] is acceptable) as you do report significant constipation and this could be related to your abdominal pain. You should also begin taking famotidine 20 mg in the morning and 20 mg at night. This can also be purchased directly over the counter. Please follow up with your doctor as soon as possible regarding today's emergent visit and the symptoms that are bothering you. Return to the ED if your abdominal pain worsens or fails to improve, you develop bloody vomiting, bloody diarrhea, you are unable to tolerate fluids due to vomiting, fever greater than 101, or other symptoms that concern you.
--- NOTE | 2018-07-13 04:52 | RADIOLOGY REPORT (SQ) ---
Abdomen two view on 07/13/2018 at 4:33 AM Clinical indications: Generalized abdominal pain COMPARISON: CT from 12/26/2016 FINDINGS: Intrauterine device is noted in the mid pelvis. There is no free air. Bowel gas pattern is nonspecific. No abnormal calcification or mass effect is noted. No significant increased stool to suggest constipation is noted. No bony abnormality is noted. IMPRESSION: Nonspecific abdomen.
[2018-07-13] MEDS ORDERED: KETOROLAC TROMETHAMINE 60 MG/2 ML SDV ONE (05:28)
[2018-07-13 05:43] VITALS: BP 114/82
== END 2018-07-13 05:41 | disposition home or self-care (01) ==
LOC: ER 22:58
DX: K59.00 Constipation, unspecified (principal); R10.84 Generalized abdominal pain; R11.2 Nausea with vomiting, unspecified; Z90.49 Acquired absence of other specified parts of digestive tract
CPT/HCPCS: 99284; 96374; 36415; 83690; 85025; 81025; 80053; 81001; 74019; J1885

== ENCOUNTER 2018-07-19 00:28 | Emergency (ER) | payer OTHER ==
[2018-07-19] MEDS ORDERED: NORMAL SALINE 500 ML IV ONE (01:25)
--- NOTE | 2018-07-19 01:27 | ER Document Report ---
ED Medical Screen (RME) - General Chief Complaint: Flank Pain Stated Complaint: FLANK PAIN Time Seen by Provider: 07/19/18 01:24 Mode of Arrival: Ambulatory Information source: Patient Notes: 22-year-old female presents to ED for complaint of right flank pain for week. She states that her menstrual cycle started today. She states is no blood in her urine before her period started. She states she has no medical history. She denies surgeries. She does have active bowel sounds. She does have tenderness to the right flank around to the right pelvic. Worse pain is to the right back. She denies any history of kidney stones in the past. Patient is alert and oriented respirations regular and unlabored and walks with a even steady gait. I have greeted and performed a rapid initial assessment of this patient. A comprehensive ED assessment and evaluation of the patient, analysis of test results and completion of medical decision making process will be conducted by an additional ED providers. TRAVEL OUTSIDE OF THE [place] IN LAST 30 DAYS: No - Related Data Allergies/Adverse Reactions: No Known Allergies Allergy (Verified 09/06/17 20:27) Past Medical History Renal/ Medical History: Denies: Hx Peritoneal Dialysis GI Medical History: Reports: Hx Gastroesophageal Reflux Disease Psychiatric Medical History: Denies: Hx Depression Past Surgical History: Reports: Hx Cholecystectomy - 10/24 - Immunizations Hx Diphtheria, Pertussis, Tetanus Vaccination: Yes History of Influenza Vaccine for 08/2017 - 01/2018 Season: No
[2018-07-19] MEDS ORDERED: KETOROLAC TROMETHAMINE INJ/PF 30 MG/1 ML SDV IV ONE (01:46)
[2018-07-19] MEDS ORDERED: NORMAL SALINE 1000 ML 1,000 ML IV ONE (01:46)
[2018-07-19] MEDS ORDERED: ONDANSETRON HCL INJ/PF 4 MG/2 ML SDV IV ONE (01:46)
--- NOTE | 2018-07-19 01:48 | ER Document Report ---
ED GI/ - General Chief Complaint: Flank Pain Stated Complaint: FLANK PAIN Time Seen by Provider: 07/19/18 01:24 Mode of Arrival: Ambulatory Notes: Patient is a 22-year-old female that comes to the emergency department for chief complaint of right flank pain. She states that symptoms started about a week ago, she was evaluated for abdominal and flank pain at that time without any concerning findings. She states she thinks she had a fever, 2 days ago she was vomiting, she states pain was very sharp this evening so she came in for evaluation. Pain does radiate around to her abdomen. She has had a cholecystectomy. She states she has been taking ibuprofen at home for pain. She is currently on her menstrual cycle. She denies any specific lower abdominal pain, denies history of kidney stones, denies injury. TRAVEL OUTSIDE OF THE [place] IN LAST 30 DAYS: No - Related Data Allergies/Adverse Reactions: No Known Allergies Allergy (Verified 09/06/17 20:27) Past Medical History - General Information source: Patient - Social History Smoking Status: Never Smoker Frequency of alcohol use: None Drug Abuse: None Lives with: Family Family History: Reviewed & Not Pertinent, Other - Mother had gallbladder removed. No family history of anesthesia problems. 5-month-old healthy baby boy. Renal/ Medical History: Denies: Hx Peritoneal Dialysis GI Medical History: Reports: Hx Gastroesophageal Reflux Disease Psychiatric Medical History: Denies: Hx Depression Past Surgical History: Reports: Hx Cholecystectomy - 10/24 - Immunizations Hx Diphtheria, Pertussis, Tetanus Vaccination: Yes Review of Systems - Review of Systems Constitutional: No symptoms reported EENT: No symptoms reported Cardiovascular: No symptoms reported Respiratory: No symptoms reported Gastrointestinal: See HPI Genitourinary: See HPI Female Genitourinary: No symptoms reported Musculoskeletal: No symptoms reported Skin: No symptoms reported Hematologic/Lymphatic: No symptoms reported Neurological/Psychological: No symptoms reported Physical Exam - Vital signs Vitals: Temp Pulse Resp BP Pulse Ox 98.5 F 85 16 100/63 98 07/19/18 06:03 07/19/18 06:03 07/19/18 06:03 07/19/18 06:03 07/19/18 06:03 - Notes Notes: GENERAL: Alert, interacts well. No acute distress. HEAD: Normocephalic, atraumatic. EYES: Pupils equal, round, and reactive to light. Extraocular movements intact. ENT: Oral mucosa moist, tongue midline. NECK: Full range of motion. Supple. Trachea midline. LUNGS: Clear to auscultation bilaterally, no wheezes, rales, or rhonchi. No respiratory distress. HEART: Regular rate and rhythm. No murmur ABDOMEN: There is generalized abdominal tenderness over the mid abdomen and in every quadrant, however there is no guarding, no rigidity, no rebound tenderness , no notable distention EXTREMITIES: Moves all 4 extremities spontaneously. No edema, normal radial and dorsalis pedis pulses bilaterally. No cyanosis. BACK: no cervical, thoracic, lumbar midline tenderness. No saddle anesthesia, normal distal neurovascular exam. There is tenderness over the right CVA area of the back. No trauma noted. NEUROLOGICAL: Alert and oriented x3. Normal speech. [cranial nerves II through XII grossly intact]. PSYCH: Normal affect, normal mood. SKIN: Warm, dry, normal turgor. No rashes or lesions noted. Course - Re-evaluation Re-evalutation: There is midabdominal tenderness, there is only very mild tenderness, there is nonspecific lower abdominal tenderness suggesting pelvic infection. Urine unremarkable without infection or unremarkable hematuria, patient does have questionable CVA tenderness on the right side. Ultrasound was performed after discussion with patient, this shows no hydronephrosis or suspicious finding. CBC, chemistry generally unremarkable. Patient has already had a cholecystectomy. Patient admits to some constipation recently, states she had a better bowel movement after starting stool softener after being seen about 3 days ago. I suspect this is bowel in nature, possibly also musculoskeletal in her back, very low suspicion of acute abdomen, abscess, or infection based on her workup, exam, vital signs. Discussed with patient in detail, discussed recommendations for her bowel, medications at home, patient had complete resolution of her symptoms with Toradol and requests this at home, discussed return precautions, patient states satisfaction and agreement. - Vital Signs Vital signs: Temp Pulse Resp BP Pulse Ox 98.5 F 85 16 100/63 98 07/19/18 06:03 07/19/18 06:03 07/19/18 06:03 07/19/18 06:03 07/19/18 06:03 - Laboratory Result Diagrams: 07/19/18 01:57 07/19/18 01:57 Laboratory results interpreted by me: 07/19/18 07/19/18 07/19/18 01:43 01:57 01:57 Hct 35.9 L BUN 25 H Urine Blood LARGE H Urine Urobilinogen 2.0 H Ur Leukocyte Esterase TRACE H Discharge - Discharge Clinical Impression: Flank pain Abdominal pain Qualifiers: Abdominal location: generalized Qualified Code(s): R10.84 - Generalized abdominal pain Condition: Stable Disposition: HOME, SELF-CARE Additional Instructions: The ultrasound of your kidneys is normal, your lab work and urine did not show any concerning findings. Your symptoms appear to be coming from your bowel. I recommend that you take the stool softener for the next few days as well, increase fiber in your diet, he may need probiotics as well. Take the Bentyl for cramping, take the Toradol for pain if needed. You can apply heat to your back as well. Drink plenty of fluids. If symptoms continue follow-up with gastroenterology referral as well as primary care. Return to the emergency department for any concerning worsening symptoms including vomiting, fever of 100.4 or greater, severe pain, or any other concerning or worsening symptoms. Prescriptions: Ketorolac Tromethamine [Toradol 10 mg Tablet] 10 mg PO Q8HP PRN #30 tablet PRN Reason: Dicyclomine HCl [Bentyl 20 mg Tablet] 20 mg PO QID #20 tablet Referrals: KATHLEEN ALEMAN MD [ACTIVE STAFF] - Follow up as needed VARGHESE JURADO MD [ACTIVE STAFF] - Follow up as needed
[2018-07-19 02:05] LABS: APPEARANCE,URINE SLIGHTLY-CLOUDY; BILIRUBIN,URINE NEGATIVE (NEGATIVE); COLOR,URINE YELLOW; GLUCOSE, URINE NEGATIVE (NEGATIVE); KETONES,URINE NEGATIVE (NEGATIVE); LEUKOCYTE ESTERASE,URINE TRACE (NEGATIVE); NITRITE,URINE NEGATIVE (NEGATIVE); PROTEIN,URINE NEGATIVE (NEGATIVE); URINE SPECIFIC GRAVITY 1.026
[2018-07-19 02:10] LABS: ABSOLUTE EOSINOPHILS # (AUTO) 0.4 10^3/uL (0.0-0.6); ABSOLUTE LYMPHOCYTES (AUTO) 3.4 10^3/uL (0.5-4.7); ABSOLUTE MONOCYTES (AUTO) 0.7 10^3/uL (0.1-1.4); ABSOLUTE NEUT (AUTO) 5.5 10^3/uL (1.7-8.2); BASOPHILS % (AUTO) 0.4 % (0-2); EOSINOPHILS % (AUTO) 3.9 % (0-6); HEMATOCRIT 35.9 % (36.0-47.0); LYMPHOCYTES % (AUTO) 33.8 % (13-45); MEAN CORPUSCULAR HGB CONC 33.4 g/dL (32.0-36.0); MEAN CORPUSCULAR VOLUME 87 fl (80-97); MONOCYTES % (AUTO) 7.4 % (3-13); PLATELET COUNT 318 10^3/uL (150-450); RED BLOOD COUNT 4.14 10^6/uL (3.72-5.28); RED CELL DISTRIBUTION WIDTH 13.8 % (11.5-14.0); SEGMENTED NEUTROPHILS % (AUTO) 54.5 % (42-78); TOTAL CELLS COUNTED % (AUTO) 100 %
[2018-07-19 02:22] LABS: ALANINE AMINOTRANSFERASE 33 U/L (9-52); ALBUMIN 4.2 g/dL (3.5-5.0); ALKALINE PHOSPHATASE 80 U/L (38-126); ANION GAP 12 (5-19); ASPARTATE AMINO TRANSFERASE 24 U/L (14-36); BILIRUBIN,DIRECT 0.2 mg/dL (0.0-0.4); BILIRUBIN,TOTAL 0.3 mg/dL (0.2-1.3); BLOOD UREA NITROGEN 25 mg/dL (7-20); CALCIUM 9.8 mg/dL (8.4-10.2); CARBON DIOXIDE 25 mmol/L (22-30); CHLORIDE 105 mmol/L (98-107); GLUCOSE 91 mg/dL (75-110); SODIUM 142.4 mmol/L (137-145); TOTAL PROTEIN 7.2 g/dL (6.3-8.2)
--- NOTE | 2018-07-19 05:15 | RADIOLOGY REPORT (SQ) ---
EXAM DESCRIPTION: US RETROPERITONEUM LIMITED COMPLETED DATE/TME: 07/19/2018 02:27 CLINICAL HISTORY: 22 years Female, right flank pain Comparison: CT, 1.. LIMITATIONS: None. FINDINGS: 11-cm right kidney, 11-cm left kidney, and urinary bladder without demonstrated bilateral ureteral jet flow appear otherwise of normal size, shape, echotexture, and vascularity. IMPRESSION: Normal renal sonogram.
[2018-07-19 06:04] VITALS: BP 100/63
== END 2018-07-19 06:04 | disposition home or self-care (01) ==
LOC: ER 00:28
DX: R10.84 Generalized abdominal pain (principal); R10.817 Generalized abdominal tenderness; R11.10 Vomiting, unspecified; Z90.49 Acquired absence of other specified parts of digestive tract; Z87.19 Personal history of other diseases of the digestive system
CPT/HCPCS: 99284; 96361; 96374; 96375; 36415; 84703; 85025; 80053; 81001; 76775; J1885; J2405; J7030

== ENCOUNTER → 2018-07-27 | Outpatient (CLI) | payer OTHER ==
--- NOTE | 2018-07-27 13:57 | RADIOLOGY REPORT (SQ) ---
EXAM DESCRIPTION: U/S NON OB PEL TV W/DOPPLER COMPLETED DATE/TIME: 07/27/2018 12:13 pm REASON FOR STUDY: ENCOUNTER FOR ROUTINE CHECKING OF IUD Z30.431 ENCOUNTER FOR ROUTINE CHECKING OF I NTRAUTERINE CONTR COMPARISON: CT abdomen pelvis 12/26/2016 Pelvic ultrasound 07/31/2015 TECHNIQUE: Dynamic and static grayscale images acquired of the pelvis via transvaginal approach and recorded on PACS. Additional selected color Doppler and spectral images recorded. LIMITATIONS: None. FINDINGS: UTERUS: Contour normal. No mass. ENDOMETRIAL STRIPE: No focal or generalized thickening. No masses. An IUD is present in the endometr ial canal in good positioning. CERVIX: No nabothian cysts. RIGHT OVARY AND DOPPLER: Normal size, 3.3 x 2 x 1.8 cm in size. No worrisome masses. Normal arterial vascular flow without evidence for torsion. LEFT OVARY AND DOPPLER: Normal size, 3.4 x 2.2 x 1.7 cm in size. No worrisome masses. Normal arterial vascular flow without evidence for torsion. FREE FLUID: None noted. OTHER: No other significant finding. IMPRESSION: NORMAL TRANSVAGINAL PELVIC ULTRASOUND. IUD IN GOOD POSITIONING IN THE ENDOMETRIAL CANAL. TECHNICAL DOCUMENTATION: JOB ID: [id number] [employer]- All Rights Reserved Rev Reading location - IP/workstation name: [email or web address]
== END ==
LOC: RAD 11:40
PROVIDERS: ATTEND Nurse Practitioner
DX: Z30.431 Encounter for routine checking of intrauterine contraceptive device (principal)
CPT/HCPCS: 76830; 93976

== ENCOUNTER 2018-08-02 15:48 | Emergency (ER) | payer OTHER ==
[2018-08-02] MEDS ORDERED: NORMAL SALINE 1000 ML 1,000 ML IV ONE ×3 (16:05→23:18)
[2018-08-02] MEDS ORDERED: ONDANSETRON HCL INJ/PF 4 MG/2 ML SDV IV ONE (16:06)
[2018-08-02] MEDS ORDERED: ACETAMINOPHEN 325 MG TABLET PO ONE (16:07)
--- NOTE | 2018-08-02 16:07 | ER Document Report ---
ED Medical Screen (RME) - General Chief Complaint: Abdominal Pain Stated Complaint: VOMITING,ABDOMINAL PAIN Time Seen by Provider: 08/02/18 16:01 Mode of Arrival: Ambulatory Information source: Patient Notes: This is a 22-year-old female 3 para 3, last normal menstrual period 1 week ago presents to the emergency room with abdominal pain, nausea, vomiting. She does have a history of a cholecystectomy. She has been evaluated for abdominal discomfort recently. She does look uncomfortable in triage. She is febrile. TRAVEL OUTSIDE OF THE [place] IN LAST 30 DAYS: No - Related Data Allergies/Adverse Reactions: No Known Allergies Allergy (Verified 08/02/18 15:51) Past Medical History - Social History Chew tobacco use (# tins/day): No Frequency of alcohol use: None Drug Abuse: None Renal/ Medical History: Denies: Hx Peritoneal Dialysis GI Medical History: Reports: Hx Gastroesophageal Reflux Disease Psychiatric Medical History: Denies: Hx Depression Past Surgical History: Reports: Hx Cholecystectomy - 10/24 - Immunizations Hx Diphtheria, Pertussis, Tetanus Vaccination: Yes History of Influenza Vaccine for 08/2017 - 01/2018 Season: No Physical Exam - Vital signs Vitals: Temp Pulse Resp BP Pulse Ox 100.9 F H 121 H 18 107/65 99 08/02/18 15:52 08/02/18 15:52 08/02/18 15:52 08/02/18 15:52 08/02/18 15:52 Course - Vital Signs Vital signs: Temp Pulse Resp BP Pulse Ox 100.9 F H 121 H 18 107/65 99 08/02/18 15:52 08/02/18 15:52 08/02/18 15:52 08/02/18 15:52 08/02/18 15:52 Doctor's Discharge - Discharge Referrals: SVETA HARTMANN, CALI [Primary Care Provider] - Follow up as needed
--- NOTE | 2018-08-02 16:25 | ER Document Report ---
ED GI/ - General Chief Complaint: Abdominal Pain Stated Complaint: VOMITING,ABDOMINAL PAIN Time Seen by Provider: 08/02/18 16:01 Mode of Arrival: Ambulatory Notes: 22-year-old female complaining of upper abdominal pain for 4 days with vomiting and one episode of diarrhea yesterday today. She also is complaining of left anterior neck pain. She developed a fever today. Status post cholecystectomy December 24, 2016. Denies dysuria frequency urgency, denies vaginal discharge or odor, denies flank pain. No runny nose sore throat or cough. [facility]. TRAVEL OUTSIDE OF THE [place] IN LAST 30 DAYS: No - Related Data Allergies/Adverse Reactions: No Known Allergies Allergy (Verified 08/02/18 15:51) Past Medical History - General Information source: Patient - Social History Smoking Status: Never Smoker Chew tobacco use (# tins/day): No Frequency of alcohol use: None Drug Abuse: None Lives with: Family, Spouse/Significant other - Boyfriend Family History: Reviewed & Not Pertinent, Other - Mother had gallbladder removed. No family history of anesthesia problems. 5-month-old healthy baby boy. Patient has suicidal ideation: No Patient has homicidal ideation: No Renal/ Medical History: Denies: Hx Peritoneal Dialysis GI Medical History: Reports: Hx Gastroesophageal Reflux Disease Psychiatric Medical History: Denies: Hx Depression Past Surgical History: Reports: Hx Cholecystectomy - 10/24 - Immunizations Hx Diphtheria, Pertussis, Tetanus Vaccination: Yes Review of Systems - Review of Systems Constitutional: No symptoms reported EENT: No symptoms reported Cardiovascular: No symptoms reported Respiratory: No symptoms reported Gastrointestinal: See HPI Genitourinary: No symptoms reported Female Genitourinary: No symptoms reported Musculoskeletal: No symptoms reported Skin: No symptoms reported Hematologic/Lymphatic: No symptoms reported Neurological/Psychological: No symptoms reported Physical Exam - Vital signs Vitals: Temp Pulse Resp BP Pulse Ox 100.9 F H 121 H 18 107/65 99 08/02/18 15:52 08/02/18 15:52 08/02/18 15:52 08/02/18 15:52 08/02/18 15:52 Interpretation: Normal - General General appearance: Appears well, Alert In distress: None - HEENT Head: Normocephalic, Atraumatic Eyes: Normal Conjunctiva: Normal Pupils: PERRL Tympanic membrane: Normal Mouth/Lips: Normal Pharynx: Normal Neck: Lymphadenopathy - left anterior cervical x 1, Supple - Respiratory Respiratory status: No respiratory distress Chest status: Nontender Breath sounds: Normal Chest palpation: Normal - Cardiovascular Rhythm: Regular Heart sounds: Normal auscultation Murmur: No - Abdominal Inspection: Normal Distension: No distension Bowel sounds: Normal Tenderness: Tender - RUQ, epigastrum. No: Hendricks's sign, Guarding, Rebound Organomegaly: No organomegaly - Genitourinary External exam: Normal Speculum exam: Cervix closed, Other - No IUD strings, yellow mucoid at os Vaginal bleeding: None Bimanuel exam: No: Cervical motion tender, Adnexal mass, Adnexal tenderness - Back Back: Normal, Nontender. No: CVA tenderness - Extremities General upper extremity: Normal inspection, Nontender, Normal color, Normal ROM , Normal temperature General lower extremity: Normal inspection, Nontender, Normal color, Normal ROM , Normal temperature, Normal weight bearing. No: Franky's sign - Neurological Neuro grossly intact: Yes Cognition: Normal Orientation: AAOx4 Shyla Coma Scale Eye Opening: Spontaneous [place] Coma Scale Verbal: Oriented Shyla Coma Scale Motor: Obeys Commands [place] Coma Scale Total: 15 Speech: Normal Motor strength normal: LUE, RUE, LLE, RLE Sensory: Normal - Psychological Associated symptoms: Normal affect, Normal mood - Skin Skin Temperature: Warm Skin Moisture: Dry Skin Color: Normal Skin irregularity: negative: Rash Course - Re-evaluation Re-evalutation: 08/02/18 17:42 Patient feels better after the 1 L of normal saline I hung a second bag. Pelvic exam is been done, wet prep gonorrhea and Chlamydia are pending. Patient reports a pelvic exam done at the [facility] on July 27 which was nontender. She was sent for a pelvic ultrasound because the IUD strings were not seen in the IUD is in proper placement on the ultrasound done July 27 here at [facility]. White count is 14.4 with 84% neutrophils 08/02/18 18:24 Wet prep shows no trichomonas, 4+ WBCs, 3+ bacteria, 3+ epithelial cells. No malodorous discharge with the pelvic exam 08/02/18 19:00 Patient is drinking her contrast and is complaining of upper abdominal pain and generalized headache which is new, I will order a small amount of pain medication which she had originally asked me for when I walked in the room but after 1 L of fluid she was feeling better so pending the CT report I will order her some pain medication. 08/02/18 19:10 Report given at the bedside to Cristina CARLIN to assume care patient is scheduled for CT at 2029. - Vital Signs Vital signs: Temp Pulse Resp BP Pulse Ox 97.9 F 98 16 100/58 L 93 08/02/18 18:29 08/02/18 18:29 08/02/18 18:29 08/02/18 18:39 08/02/18 18:29 - Laboratory Result Diagrams: 08/02/18 16:13 08/02/18 16:13 Laboratory results interpreted by me: 08/02/18 08/02/18 08/02/18 16:13 16:13 16:13 WBC 14.4 H Seg Neutrophils % 84.0 H Lymphocytes % 9.3 L Absolute Neutrophils 12.1 H Total Protein 8.6 H Urine Blood MODERATE H Urine Urobilinogen 2.0 H Ur Leukocyte Esterase SMALL H Discharge - Discharge Referrals: SVETA HARTMANN, MEDICAL COLLECTIONS REPRESENTATIVE [NO LOCAL MD] - Follow up as needed
[2018-08-02 16:36] LABS: ABSOLUTE BASOPHILS # (AUTO) 0.1 10^3/uL (0.0-0.2); ABSOLUTE LYMPHOCYTES (AUTO) 1.3 10^3/uL (0.5-4.7); ABSOLUTE MONOCYTES (AUTO) 0.9 10^3/uL (0.1-1.4); ABSOLUTE NEUT (AUTO) 12.1 10^3/uL (1.7-8.2); BASOPHILS % (AUTO) 0.5 % (0-2); EOSINOPHILS % (AUTO) 0.2 % (0-6); HEMATOCRIT 40.9 % (36.0-47.0); HEMOGLOBIN 13.5 g/dL (12.0-15.5); LYMPHOCYTES % (AUTO) 9.3 % (13-45); MEAN CORPUSCULAR HEMOGLOBIN 28.4 pg (27.0-33.4); MEAN CORPUSCULAR HGB CONC 32.9 g/dL (32.0-36.0); MEAN CORPUSCULAR VOLUME 86 fl (80-97); PLATELET COUNT 328 10^3/uL (150-450); RED BLOOD COUNT 4.74 10^6/uL (3.72-5.28); RED CELL DISTRIBUTION WIDTH 13.9 % (11.5-14.0); TOTAL CELLS COUNTED % (AUTO) 100 %; WHITE BLOOD COUNT 14.4 10^3/uL (4.0-10.5)
[2018-08-02 16:39] LABS: APPEARANCE,URINE SLIGHTLY-CLOUDY; BILIRUBIN,URINE NEGATIVE (NEGATIVE); COLOR,URINE YELLOW; GLUCOSE, URINE NEGATIVE (NEGATIVE); KETONES,URINE NEGATIVE (NEGATIVE); LEUKOCYTE ESTERASE,URINE SMALL (NEGATIVE); NITRITE,URINE NEGATIVE (NEGATIVE); PROTEIN,URINE NEGATIVE (NEGATIVE); URINE SPECIFIC GRAVITY 1.025
[2018-08-02 16:58] LABS: ALANINE AMINOTRANSFERASE 34 U/L (9-52); ALBUMIN 4.8 g/dL (3.5-5.0); ALKALINE PHOSPHATASE 75 U/L (38-126); ANION GAP 15 (5-19); ASPARTATE AMINO TRANSFERASE 36 U/L (14-36); BILIRUBIN,DIRECT 0.3 mg/dL (0.0-0.4); BILIRUBIN,TOTAL 0.8 mg/dL (0.2-1.3); BLOOD UREA NITROGEN 16 mg/dL (7-20); CALCIUM 10.1 mg/dL (8.4-10.2); CARBON DIOXIDE 26 mmol/L (22-30); CHLORIDE 102 mmol/L (98-107); GLUCOSE 108 mg/dL (75-110); LIPASE 55.9 U/L (23-300); POTASSIUM 3.9 mmol/L (3.6-5.0); SODIUM 142.9 mmol/L (137-145); TOTAL PROTEIN 8.6 g/dL (6.3-8.2)
[2018-08-02 17:55] LABS: RBCS (WET MOUNT) RARE RBCS SEEN; T.VAGINALIS (WET MOUNT) NO TRICHOMONAS SEEN; WBCS (WET MOUNT) 4+ WBCS SEEN; YEAST (WET MOUNT) NO YEAST SEEN
[2018-08-02 17:56] LABS: BACTERIA (WET MOUNT) 3+ BACTERIA SEEN; EPITHELIALS (WET MOUNT) 3+ EPITHELIALS SEEN
[2018-08-02] MEDS ORDERED: MORPHINE SULFATE 10 MG/ML INJ IV ONE (19:01)
[2018-08-02 19:19] LABS: CHLAM PCR NOT DETECTED (NOT DETECT); GON PCR NOT DETECTED (NOT DETECT)
[2018-08-02] MEDS ORDERED: FENTANYL CITRATE INJ/PF 100 MCG/2 ML AMPUL ONE (21:28)
[2018-08-02] MEDS ORDERED: FENTANYL CITRATE INJ/PF 100 MCG/2 ML AMPUL IV ONE (21:29)
--- NOTE | 2018-08-02 21:41 | RADIOLOGY REPORT (SQ) ---
CT ABDOMEN PELVIS WITH IV CONTRAST HISTORY: Umbilical pain. COMPARISON: 12/26/2016 TECHNIQUE: CT scan of the abdomen and pelvis. This exam was performed according to our departmental dose-optimization program, which includes automated exposure control, adjustment of the mA and/or kV according to patient size and/or use of iterative reconstruction technique. FINDINGS: Lung bases are clear. No pleural or pericardial effusions. Liver, spleen, pancreas, and adrenal glands are unremarkable. Cholecystectomy clips are present. The kidneys are normal without hydronephrosis. No bowel obstruction. Appendix is normal. No adenopathy or ascites. IUD is present. No abdominal wall hernia is seen. The osseous structures are intact. IMPRESSION: No acute abdominopelvic pathology. Normal appendix. Status post cholecystectomy.
--- NOTE | 2018-08-02 21:42 | RADIOLOGY REPORT (SQ) ---
XR CHEST 1 VIEW HISTORY: Chest pain. COMPARISON: None. FINDINGS/IMPRESSION: Normal cardiomediastinal contours. Lungs are clear. No pleural effusion or pneumothorax is seen. No acute osseous findings.
[2018-08-02] MEDS ORDERED: METOCLOPRAMIDE HCL ORAL SOLN 10 MG/10 ML UDCUP PO ONE (21:53)
[2018-08-02] MEDS ORDERED: LIDOCAINE 2% VISCOUS SOLN 20 ML UDCUP PO ONE (21:53)
[2018-08-02] MEDS ORDERED: MAG HYDROX/AL HYDROX/SIMETH SUSP 30 ML UDCUP PO ONE (21:53)
[2018-08-02] MEDS ORDERED: CEFTRIAXONE INJ 1000 MG VIAL IV ONE (22:06)
[2018-08-02] MEDS ORDERED: KETOROLAC TROMETHAMINE INJ/PF 30 MG/1 ML SDV IV ONE (22:24)
[2018-08-02] MEDS ORDERED: DOXYCYCLINE HYCLATE 100 MG TABLET PO ONE (23:32)
[2018-08-02] MEDS ORDERED: HYDROCODONE/ACETAMINOPHEN 5-325 MG (6 TAB/ER DISP) PO PRN (23:50)
[2018-08-02] MEDS ORDERED: ONDANSETRON ODT 4 MG TAB (6 TAB/ER DISP) PO PRN (23:50)
[2018-08-03 00:34] VITALS: BP 108/72
== END 2018-08-03 00:35 | disposition home or self-care (01) ==
LOC: ER 15:48
DX: R50.9 Fever, unspecified (principal); R10.9 Unspecified abdominal pain; R19.7 Diarrhea, unspecified; R11.10 Vomiting, unspecified; M54.2 Cervicalgia; Z90.49 Acquired absence of other specified parts of digestive tract
CPT/HCPCS: 99285; 96361; 96375; 96365; 36415; 87086; 87210; 84702; 83690; 85025; 86308; 80053; 81001; 87491; 87591; 71045; 74177; J3010; J3490; J1885; J2270; J0696; J2405; J7030

== ENCOUNTER 2018-09-15 18:45 | Emergency (ER) | payer OTHER ==
[2018-09-15 19:01] VITALS: BP 115/65
[2018-09-15] MEDS ORDERED: MAG HYDROX/AL HYDROX/SIMETH SUSP 30 ML UDCUP PO ONE (19:27)
[2018-09-15] MEDS ORDERED: METOCLOPRAMIDE HCL ORAL SOLN 10 MG/10 ML UDCUP PO ONE (19:27)
[2018-09-15] MEDS ORDERED: MAG HYDROX/AL HYDROX/SIMETH SUSP 30 ML UDCUP PO PRN (19:27)
[2018-09-15] MEDS ORDERED: LIDOCAINE 2% VISCOUS SOLN 20 ML UDCUP PO PRN (19:27)
[2018-09-15] MEDS ORDERED: LIDOCAINE 2% VISCOUS SOLN 20 ML UDCUP PO ONE (19:27)
[2018-09-15] MEDS ORDERED: HYDROCODONE/ACETAMINOPHEN 5-325 MG TABLET PO ONE (19:27)
[2018-09-15] MEDS ORDERED: ONDANSETRON 4 MG TAB.RAPDIS PO ONE (19:27)
[2018-09-15] MEDS ORDERED: SUCRALFATE SUSP 1 GM/10 ML UDCUP PO ONE (19:28)
--- NOTE | 2018-09-15 19:32 | ER Document Report ---
ED General - General Chief Complaint: Abdominal Pain Stated Complaint: ABDOMINAL PAIN Time Seen by Provider: 09/15/18 19:26 Mode of Arrival: Ambulatory Information source: Patient Notes: Chief complaint: abdominal pain: History of complain:( obtained from----patient) 22 years old female presents today with epigastric pain for the last 2 days with gradual increase in intensity. Pain is more so each time she eats. Associated with nausea and vomited x2. She is constipated, has bowel movements once in 3-4 days. Hard stools. Denies being . Denies any fever chills or other constitutional symptoms. Onset: Gradual Duration: As mentioned above Severity: Moderate to severe Quality: Sharp/burning Context: As above Exacerbating factor and relieving factors: Eating anything REVIEW OF SYSTEMS: CONSTITUTIONAL : Denies fever, chills, or sweats. Denies recent illness. EENT: Denies eye, ear, throat, or mouth pain or symptoms. Denies nasal or sinus congestion or discharge. Denies throat, tongue, or mouth swelling or difficulty swallowing. CARDIOVASCULAR: Denies chest pain. Denies palpitations or racing or irregular heart beat. Denies ankle edema. RESPIRATORY: Denies cough, cold, or chest congestion. Denies shortness of breath, difficulty breathing, or wheezing. GASTROINTESTINAL: Denies distention. Denies nausea, vomiting, or diarrhea. Denies blood in vomitus, stools, or per rectum. Denies black, tarry stools. Denies constipation. GENITOURINARY: Denies difficulty urinating, painful urination, burning, frequency, blood in urine, or discharge. FEMALE GENITOURINARY: Denies vaginal bleeding, heavy or abnormal periods, irregular periods. Denies vaginal discharge or odor. MUSCULOSKELETAL: Denies back or neck pain or stiffness. Denies joint pain or swelling. SKIN: Denies rash, lesions or sores. HEMATOLOGIC : Denies easy bruising or bleeding. LYMPHATIC: Denies swollen, enlarged glands. NEUROLOGICAL: Denies confusion or altered mental status. Denies passing out or loss of consciousness. Denies dizziness or lightheadedness. Denies headache. Denies weakness or paralysis or loss of use of either side. Denies problems with gait or speech. Denies sensory loss, numbness, or tingling. Denies seizures. PSYCHIATRIC: Denies anxiety or stress. Denies depression, suicidal ideation, or homicidal ideation. ALL OTHER SYSTEMS REVIEWED AND NEGATIVE. PHYSICAL EXAMINATION: GENERAL: Well-appearing, well-nourished and in moderate acute distress. HEAD: Atraumatic, normocephalic. EYES: Pupils equal round and reactive to light, extraocular movements intact, conjunctiva are normal. ENT: Nares patent, oropharynx clear without exudates. Moist mucous membranes. NECK: Normal range of motion, supple without lymphadenopathy LUNGS: Breath sounds clear to auscultation bilaterally and equal. No wheezes rales or rhonchi. HEART: Regular rate and rhythm without murmurs ABDOMEN: Soft, sharp epigastric tenderness, nondistended abdomen. No guarding, no rebound. No masses appreciated. Female : deferred Musculoskeletal: Normal range of motion, no pitting or edema. No cyanosis. NEUROLOGICAL: Cranial nerves grossly intact. Normal speech, normal gait. Normal sensory, motor exams PSYCH: Normal mood, normal affect. SKIN: Warm, Dry, normal turgor, no rashes or lesions noted. Dictation was performed using [employer] voice recognition software TRAVEL OUTSIDE OF THE [place] IN LAST 30 DAYS: No - HPI Notes: Dictated - Related Data Allergies/Adverse Reactions: No Known Allergies Allergy (Verified 09/15/18 19:32) Past Medical History - Social History Smoking Status: Never Smoker Cigarette use (# per day): No Chew tobacco use (# tins/day): No Frequency of alcohol use: None Drug Abuse: None Lives with: Family Family History: Reviewed & Not Pertinent, Other - Mother had gallbladder removed. No family history of anesthesia problems. 5-month-old healthy baby boy. Renal/ Medical History: Denies: Hx Peritoneal Dialysis GI Medical History: Reports: Hx Gastroesophageal Reflux Disease Psychiatric Medical History: Denies: Hx Depression Past Surgical History: Reports: Hx Cholecystectomy - 10/24 - Immunizations Hx Diphtheria, Pertussis, Tetanus Vaccination: Yes Review of Systems - Review of Systems Notes: Dictated Physical Exam - Vital signs Vitals: Temp Pulse Resp BP Pulse Ox 98.8 F 63 16 115/65 99 09/15/18 18:58 09/15/18 18:58 09/15/18 18:58 09/15/18 18:58 09/15/18 18:58 - Notes Notes: Dictated Course - Re-evaluation Re-evalutation: 09/15/18 19:32 Dictated - Vital Signs Vital signs: Temp Pulse Resp BP Pulse Ox 98.8 F 63 16 115/65 99 09/15/18 18:58 09/15/18 18:58 09/15/18 18:58 09/15/18 18:58 09/15/18 18:58 Discharge - Discharge Clinical Impression: GERD with esophagitis Condition: Fair Disposition: HOME, SELF-CARE Instructions: Esophagitis ([facility]), Prilosec (Acid Pump Inhibitor) ([facility]), Reflux Disease (GERD) ([facility]) Prescriptions: Lactulose 20 gm PO BID #120 ml Pantoprazole Sodium 40 mg PO DAILY #30 tablet. Sucralfate [Carafate 1 gm Tablet] 1 gm PO ACHS #120 tablet
== END 2018-09-15 20:26 | disposition home or self-care (01) ==
LOC: ER 18:45
DX: K21.0 Gastro-esophageal reflux disease with esophagitis (principal); R10.13 Epigastric pain; R11.2 Nausea with vomiting, unspecified; K59.00 Constipation, unspecified
CPT/HCPCS: 99284; S0119; J3490

== ENCOUNTER 2018-12-07 23:18 | Emergency (ER) | payer OTHER ==
[2018-12-08] MEDS ORDERED: ONDANSETRON HCL INJ/PF 4 MG/2 ML SDV IV ONE (00:37)
[2018-12-08] MEDS ORDERED: FAMOTIDINE INJ/PF 20 MG/2 ML SDV IV ONE (00:37)
[2018-12-08] MEDS ORDERED: NORMAL SALINE 1000 ML 1,000 ML IV ONE (00:37)
[2018-12-08] MEDS ORDERED: METOCLOPRAMIDE HCL ORAL SOLN 10 MG/10 ML UDCUP PO ONE (00:38)
[2018-12-08] MEDS ORDERED: LIDOCAINE 2% VISCOUS SOLN 20 ML UDCUP PO ONE (00:38)
[2018-12-08] MEDS ORDERED: MAG HYDROX/AL HYDROX/SIMETH SUSP 30 ML UDCUP PO ONE (00:38)
--- NOTE | 2018-12-08 00:40 | ER Document Report ---
ED General - General Chief Complaint: Vomiting Stated Complaint: ABDOMINAL PAIN Time Seen by Provider: 12/08/18 00:30 Notes: Patient is a 23-year-old female presents with complaint of epigastric pain and vomiting. She says is been ongoing since yesterday. She says occasionally she will see small amount of blood in her emesis. Normal bowel movements. No bloody stools. Pain is only in the epigastric region. She has had previous cholecystectomy. She has a previous history of gastritis. She is not taking medications for this time. She said she will take Tylenol for pain but it has not helped. No fevers. No other complaints at this time. TRAVEL OUTSIDE OF THE [place] IN LAST 30 DAYS: No - Related Data Allergies/Adverse Reactions: No Known Allergies Allergy (Verified 09/15/18 19:32) Past Medical History - Social History Smoking Status: Never Smoker Frequency of alcohol use: None Drug Abuse: None Family History: Reviewed & Not Pertinent, Other - Mother had gallbladder removed. No family history of anesthesia problems. 5-month-old healthy baby boy. Renal/ Medical History: Denies: Hx Peritoneal Dialysis GI Medical History: Reports: Hx Gastroesophageal Reflux Disease Psychiatric Medical History: Denies: Hx Depression Past Surgical History: Reports: Hx Cholecystectomy - 10/24 - Immunizations Hx Diphtheria, Pertussis, Tetanus Vaccination: Yes Review of Systems - Review of Systems Notes: My Normal Review Basic REVIEW OF SYSTEMS: CONSTITUTIONAL : Denies fever, chills, or sweats. Denies recent illness. EENT: Denies eye, ear, throat, or mouth pain or symptoms. Denies nasal or sinus congestion. CARDIOVASCULAR: Denies chest pain. RESPIRATORY: Denies cough, cold, or chest congestion. Denies shortness of breath, difficulty breathing, or wheezing. GASTROINTESTINAL: Gastric abdominal pain. Nausea and vomiting. GENITOURINARY: Denies difficulty urinating, painful urination, burning, freque ncy, or blood in urine. MUSCULOSKELETAL: Denies neck or back pain or joint pain or swelling. SKIN: Denies rash or skin lesions. NEUROLOGICAL: Denies altered mental status or loss of consciousness. Denies headache. Denies weakness or paralysis or loss of use of either side. Denies problems with gait or speech. Denies sensory or motor loss. ALL OTHER SYSTEMS REVIEWED AND NEGATIVE. Physical Exam - Vital signs Vitals: Temp Pulse Resp BP Pulse Ox 98.3 F 80 16 113/67 98 12/07/18 23:23 12/07/18 23:23 12/07/18 23:23 12/07/18 23:23 12/07/18 23:23 - Notes Notes: General Appearance: Well nourished, alert, cooperative, no acute distress, mild obvious discomfort. Vitals: reviewed, See vital signs table. Head: no swelling or tenderness to the head Eyes: PERRL, EOMI, Conjuctiva clear Mouth: No decreasd moisture Throat: No tonsillar inflammation, No airway obstruction, No lymphadenopathy Neck: Supple, no neck tenderness, No thyromegaly Lungs: No wheezing, No rales, No rhonci, No accessory muscle use, good air exchange bilaterally. Heart: Normal rate, Regular rythm, No murmur, no rub Abdomen: Normal BS, soft, No rigidity, moderate pain to palpation epigastric region. Remainder of abdomen is nontender. Few small surgical scars from previous cholecystectomy. Extremities: strength 5/5 in all extremities, good pulses in all extremities, no swelling or tenderness in the extremities, no edema. Skin: warm, dry, appropriate color, no rash Neuro: speech clear, oriented x 3, normal affect, responds appropriately to questions. Course - Re-evaluation Re-evalutation: 12/08/18 03:17 I feel patient is safe to be discharged home. Pain is resolved. She looks well. Laboratory evaluation is unremarkable. I suspect that she either has gastritis or a ulcer. She mentioned that she had some small blood in her vomiting earlier but this has since cleared and she is had no further vomiting. Hemoglobin is stable. I will place her on Prilosec and Carafate. I encouraged her to call the GI physician if she still having pain of several days. I talked at length about diet changes. She admits to me that she eats large amounts of spicy food. I informed her to avoid spicy food fried foods fatty foods and acidic foods. I encouraged her return to ER immediately if she has fevers, worsening abdominal pain, vomiting, or if she feels unwell. Patient agrees with plan and will be discharged home. Dictation of this chart was performed using voice recognition software; therefore, there may be some unintended grammatical errors. - Vital Signs Vital signs: Temp Pulse Resp BP Pulse Ox 98.3 F 80 16 113/67 98 12/07/18 23:23 12/07/18 23:23 12/07/18 23:23 12/07/18 23:23 12/07/18 23:23 - Laboratory Result Diagrams: 12/08/18 01:00 12/08/18 01:00 Laboratory results interpreted by me: 12/08/18 01:00 WBC 10.9 H Discharge - Discharge Clinical Impression: Abdominal pain Qualifiers: Abdominal location: epigastric Qualified Code(s): R10.13 - Epigastric pain Condition: Good Disposition: HOME, SELF-CARE Additional Instructions: Gastritis You have an inflammation of the stomach called gastritis. This commonly causes upper abdominal pain, nausea, and vomiting. In severe cases, bleeding of the stomach lining can occur. Gastritis can be caused by bacteria or viruses, alcohol, or stomach-irritating drugs. Begin with sips of clear liquids. Take increasing amounts of fluid over the first 24 hours. Then start small amounts of bland foods (such as dry toast, applesauce, mashed potato). Gradually resume your usual diet. Acid-suppressing drugs may be prescribed as well. Avoid aspirin, caffeine, tobacco, and alcohol. If the abdominal pain worsens, or there is evidence of major bleeding in the stomach (such as black, tarry stool, bloody or black vomit, or lightheadedness), you should return immediately. Call the doctor if you aren't improved in 24 to 36 hours. Please take the medications as prescribed. After your prescription runs out you should start taking an hohm-ldx-enlpjso medication called Pepcid. If he still have pain after 3-4 days you should follow-up with the GI physician, Dr. Diamond, to have a follow-up reevaluation discuss possibility of endoscopy. Please return to the ER if you have recurrent vomiting, any vomiting of blood, fevers, worsening pain, or feel unwell. Do not take NSAID medications such as Motrin, ibuprofen, Advil, or Aleve. It is safe to take Tylenol. Prescriptions: Omeprazole Magnesium [Prilosec Otc] 40 mg PO DAILY #20 tablet. Sucralfate [Carafate Susp 1 Gm/10 Ml Udcup] 1 gm PO ACHS 10 Days udc Referrals: KATHLEEN DIAMOND MD [ACTIVE STAFF] - Follow up in 3-5 days
[2018-12-08 01:13] LABS: ABSOLUTE BASOPHILS # (AUTO) 0.1 10^3/uL (0.0-0.2); ABSOLUTE EOSINOPHILS # (AUTO) 0.2 10^3/uL (0.0-0.6); ABSOLUTE LYMPHOCYTES (AUTO) 3.3 10^3/uL (0.5-4.7); ABSOLUTE MONOCYTES (AUTO) 0.8 10^3/uL (0.1-1.4); ABSOLUTE NEUT (AUTO) 6.5 10^3/uL (1.7-8.2); BASOPHILS % (AUTO) 0.7 % (0-2); HEMATOCRIT 37.5 % (36.0-47.0); HEMOGLOBIN 12.9 g/dL (12.0-15.5); LYMPHOCYTES % (AUTO) 30.1 % (13-45); MEAN CORPUSCULAR HEMOGLOBIN 30.3 pg (27.0-33.4); MEAN CORPUSCULAR HGB CONC 34.4 g/dL (32.0-36.0); MEAN CORPUSCULAR VOLUME 88 fl (80-97); MONOCYTES % (AUTO) 7.4 % (3-13); PLATELET COUNT 305 10^3/uL (150-450); RED BLOOD COUNT 4.27 10^6/uL (3.72-5.28); RED CELL DISTRIBUTION WIDTH 12.9 % (11.5-14.0); SEGMENTED NEUTROPHILS % (AUTO) 59.8 % (42-78); TOTAL CELLS COUNTED % (AUTO) 100 %; WHITE BLOOD COUNT 10.9 10^3/uL (4.0-10.5)
[2018-12-08 01:23] LABS: ALANINE AMINOTRANSFERASE 31 U/L (9-52); ALBUMIN 4.6 g/dL (3.5-5.0); ALKALINE PHOSPHATASE 77 U/L (38-126); ANION GAP 11 (5-19); ASPARTATE AMINO TRANSFERASE 26 U/L (14-36); BILIRUBIN,DIRECT 0.1 mg/dL (0.0-0.4); BILIRUBIN,TOTAL 0.3 mg/dL (0.2-1.3); BLOOD UREA NITROGEN 13 mg/dL (7-20); CALCIUM 9.8 mg/dL (8.4-10.2); CARBON DIOXIDE 26 mmol/L (22-30); CHLORIDE 103 mmol/L (98-107); GLUCOSE 106 mg/dL (75-110); LIPASE 103.4 U/L (23-300); SODIUM 139.5 mmol/L (137-145); TOTAL PROTEIN 7.5 g/dL (6.3-8.2)
[2018-12-08] MEDS ORDERED: MORPHINE SULFATE 10 MG/ML INJ IV ONE (02:36)
[2018-12-08 03:31] VITALS: BP 103/61
== END 2018-12-08 03:31 | disposition home or self-care (01) ==
LOC: ER 23:18
DX: R10.13 Epigastric pain (principal); R11.10 Vomiting, unspecified
CPT/HCPCS: 99284; 96361; 96374; 96375; 36415; 83690; 84703; 85025; 80053; J3490; J2270; J2405; J7030; S0028

== ENCOUNTER 2019-03-04 23:00 | Emergency (ER) | payer OTHER ==
[2019-03-05] MEDS ORDERED: ACETAMINOPHEN 325 MG TABLET PO ONE (00:53)
[2019-03-05] MEDS ORDERED: CARBAMAZEPINE 100 MG TAB.CHEW PO ONE (00:54)
--- NOTE | 2019-03-05 01:01 | ER Document Report ---
ED General - General Chief Complaint: Numbness of Face Stated Complaint: FACIAL NUMBNESS Time Seen by Provider: 03/05/19 00:38 TRAVEL OUTSIDE OF THE [place] IN LAST 30 DAYS: No - HPI Notes: Patient is a 23-year-old female that presents to the emergency department for chief complaint of right-sided facial pain and tingling. Patient states yesterday she started having pain on the right side of her face. She states it is worse on her cheek and forehead. The pain is worse with any kind of palpation. She describes it as a tingling burning sensation. She denies any vision changes, headache, fevers or chills. She denies any weakness in her facial muscles. She denies injury to the area. Past Medical History: Negative Past Surgical History: Cholecystectomy Social History: Denies drugs alcohol and tobacco Family History: Reviewed and noncontributory for presenting illness Allergies: Reviewed, see documented allergy list. REVIEW OF SYSTEMS: CONSTITUTIONAL : No fever No chills No diaphoresis No recent illness EENT: Facial pain No vision changes No congestion No sore throat CARDIOVASCULAR: No chest pain No palpitations RESPIRATORY: No shortness of breath No cough No difficulty breathing GASTROINTESTINAL: No abdominal pain No nausea No vomiting No diarrhea GENITOURINARY: No dysuria No hematuria No difficulty urinating MUSCULOSKELETAL: No back pain No leg pain No arm pain SKIN: No rashes No lesions LYMPHATIC: No swollen, enlarged glands. NEUROLOGICAL: No lightheadedness No headache No weakness paresthesias PSYCHIATRIC: No anxiety No depression PHYSICAL EXAMINATION: Vital signs reviewed, nursing noted reviewed. GENERAL: Well-appearing, well-nourished and in no acute distress. HEAD: Atraumatic, normocephalic. EYES: Eyes appear normal, extraocular movements intact, sclera anicteric, conjunctiva are normal. ENT: Tenderness to palpation of right cheek and forehead consistent with trigeminal neuralgia, nares patent, oropharynx clear without exudates. Moist mucous membranes. NECK: Normal range of motion, supple without lymphadenopathy LUNGS: Breath sounds clear to auscultation bilaterally and equal. No wheezes rales or rhonchi. HEART: Regular rate and rhythm without murmurs ABDOMEN: Soft, nontender, normoactive bowel sounds. No rebound, guarding, or rigidity. No masses appreciated. EXTREMITIES: Nontender, good range of motion, no pitting or edema. NEUROLOGICAL: No focal neurological deficits. Moves all extremities spontaneously Motor and sensory grossly intact on exam. PSYCH: Normal mood, normal affect. SKIN: Warm, Dry, normal turgor, no rashes or lesions noted on exposed skin - Related Data Allergies/Adverse Reactions: No Known Allergies Allergy (Verified 09/15/18 19:32) Past Medical History - Social History Smoking Status: Never Smoker Frequency of alcohol use: None Drug Abuse: None Family History: Reviewed & Not Pertinent, Other - Mother had gallbladder removed. No family history of anesthesia problems. 5-month-old healthy baby boy. Patient has suicidal ideation: No Patient has homicidal ideation: No Renal/ Medical History: Denies: Hx Peritoneal Dialysis GI Medical History: Reports: Hx Gastroesophageal Reflux Disease Psychiatric Medical History: Denies: Hx Depression Past Surgical History: Reports: Hx Cholecystectomy - 10/24 - Immunizations Hx Diphtheria, Pertussis, Tetanus Vaccination: Yes Physical Exam - Vital signs Vitals: Temp Pulse Resp BP Pulse Ox 98.1 F 86 14 101/75 100 03/04/19 23:07 03/04/19 23:07 03/04/19 23:07 03/04/19 23:07 03/04/19 23:07 Course - Re-evaluation Re-evalutation: 03/05/19 01:15 Vitals reviewed. Nursing notes reviewed. Patient has exquisite tenderness to light and progressive palpation of the right forehead and cheek. She has no focal neurologic deficits. Her symptoms are consistent with trigeminal neuralgia. She will be started on carbamazepine and was instructed on taking Tylenol for further pain. She will be given referral to [facility] as well as [facility] for [facility]. She was given return precautions and verbalized understanding. - Vital Signs Vital signs: Temp Pulse Resp BP Pulse Ox 98.1 F 86 14 101/75 100 03/04/19 23:07 03/04/19 23:07 03/04/19 23:07 03/04/19 23:07 03/04/19 23:07 Discharge - Discharge Clinical Impression: Trigeminal neuralgia of right side of face Condition: Stable Disposition: HOME, SELF-CARE Instructions: Trigeminal Neuralgia ([facility]) Additional Instructions: Follow-up with [facility] neurology in [facility] , call for an appointment. please return to the emergency department if you have any worsening, or concern of your symptoms. Please return to the emergency department if you develop chest pain, difficulty breathing, severe abdominal pain, or ongoing vomiting. Please follow-up with your primary care physician in 2-3 days and any other recommended physicians. If prescribed, take all medications as directed. If you have any questions or concerns do not hesitate to return the emergency department for evaluation. The medication I have started you on today needs to be tapered down in order to stop taking it. You have been given a 2-week course of the medication and it needs to be continued by a primary care doctor or a neurologist. Please call the provided referrals to establish follow-up Prescriptions: Carbamazepine [Carbamazepine ER] 100 mg PO BID #[id number] Referrals: [facility] [Provider Group] - Follow up as needed
[2019-03-05] MEDS ORDERED: CARBAMAZEPINE 100 MG TAB.SR.12H PO ONE ×2 (01:37→01:51)
[2019-03-05 01:39] VITALS: BP 97/59
== END 2019-03-05 01:53 | disposition home or self-care (01) ==
LOC: ER 23:00
DX: G50.0 Trigeminal neuralgia (principal); R20.2 Paresthesia of skin
CPT/HCPCS: 99283; J3490

== ENCOUNTER 2019-06-04 08:55 | Emergency (ER) | payer OTHER ==
[2019-06-04] MEDS ORDERED: ONDANSETRON HCL INJ/PF 4 MG/2 ML SDV IV ONE (09:07)
[2019-06-04] MEDS ORDERED: LIDOCAINE 2% VISCOUS SOLN 20 ML UDCUP PO ONE (09:10)
[2019-06-04] MEDS ORDERED: MAG HYDROX/AL HYDROX/SIMETH SUSP 30 ML UDCUP PO ONE (09:10)
[2019-06-04] MEDS ORDERED: METOCLOPRAMIDE HCL ORAL SOLN 10 MG/10 ML UDCUP PO ONE (09:10)
--- NOTE | 2019-06-04 09:15 | ER Document Report ---
ED Medical Screen (RME) - General Chief Complaint: Abdominal Pain Stated Complaint: ABDOMINAL PAIN Time Seen by Provider: 06/04/19 09:07 Primary Care Provider: [facility] [Primary Care Provider] - Follow up as needed Mode of Arrival: Ambulatory Information source: Patient Notes: Patient presents to the emergency department with complaints of epigastric abdominal pain for the past 2 days. Reports she started vomiting yesterday. Patient reports she vomited upon arrival to the ED. Denies fever and diarrhea. Reports last bowel movement yesterday without problems. Denies past medical history of pancreatitis Crohn's IBS. Patient has history of luis. Reports her pain increases when walking but c/o epigastric, upper abdominal pain when sitting. Generalized abdomen tender to palpate. Denies flank pain with palpation, reports low back pain. Patient looks uncomfortable. Menstrual. 2 weeks ago. Patient has an IUD. Denies pain with void. Denies vaginal discharge. I have greeted and performed a rapid initial assessment of this patient. A comprehensive ED assessment and evaluation of the patient, analysis of test results and completion of the medical decision making process will be conducted by additional ED providers. Dictation of this chart was performed using voice recognition software; therefore, there may be some unintended grammatical errors. TRAVEL OUTSIDE OF THE [place] IN LAST 30 DAYS: No - HPI Onset: Other Onset/Duration: Persistent Quality of pain: Achy Severity: Severe Pain Level: 4 Associated Symptoms: Nausea, Vomiting - Related Data Allergies/Adverse Reactions: No Known Allergies Allergy (Verified 06/04/19 08:56) Past Medical History Renal/ Medical History: Denies: Hx Peritoneal Dialysis GI Medical History: Reports: Hx Gastroesophageal Reflux Disease Psychiatric Medical History: Denies: Hx Depression Past Surgical History: Reports: Hx Cholecystectomy - 10/24 - Immunizations Hx Diphtheria, Pertussis, Tetanus Vaccination: Yes History of Influenza Vaccine for 08/2017 - 01/2018 Season: No Physical Exam - Vital signs Vitals: Temp Pulse Resp BP Pulse Ox 98.6 F 72 18 103/52 L 98 06/04/19 08:59 06/04/19 08:59 06/04/19 08:59 06/04/19 08:59 06/04/19 08:59 Course - Vital Signs Vital signs: Temp Pulse Resp BP Pulse Ox 98.6 F 72 18 103/52 L 98 06/04/19 08:59 06/04/19 08:59 06/04/19 08:59 06/04/19 08:59 06/04/19 08:59 Doctor's Discharge - Discharge Referrals: [facility] [Primary Care Provider] - Follow up as needed
[2019-06-04] MEDS ORDERED: KETOROLAC TROMETHAMINE INJ/PF 30 MG/1 ML SDV IV ONE (09:32)
--- NOTE | 2019-06-04 09:37 | ER Document Report ---
ED GI/ - General Chief Complaint: Abdominal Pain Stated Complaint: ABDOMINAL PAIN Time Seen by Provider: 06/04/19 09:07 Primary Care Provider: [facility] [NO LOCAL MD] - Follow up as needed Mode of Arrival: Ambulatory Information source: Patient TRAVEL OUTSIDE OF THE [place] IN LAST 30 DAYS: No - HPI Patient complains to provider of: Abdominal pain - pt. with c/o mid-epigastric pain for the past 2 days. She is s/p cholecystectomy. She has had some vomiting yesterday and today. - Related Data Allergies/Adverse Reactions: No Known Allergies Allergy (Verified 06/04/19 08:56) Past Medical History - General Information source: Patient - Social History Smoking Status: Never Smoker Chew tobacco use (# tins/day): No Frequency of alcohol use: None Drug Abuse: None Family History: Reviewed & Not Pertinent, Other - Mother had gallbladder removed. No family history of anesthesia problems. 5-month-old healthy baby boy. Patient has suicidal ideation: No Patient has homicidal ideation: No Renal/ Medical History: Denies: Hx Peritoneal Dialysis GI Medical History: Reports: Hx Gastroesophageal Reflux Disease Psychiatric Medical History: Denies: Hx Depression Past Surgical History: Reports: Hx Cholecystectomy - 10/24 - Immunizations Hx Diphtheria, Pertussis, Tetanus Vaccination: Yes Review of Systems - Review of Systems Constitutional: No symptoms reported EENT: No symptoms reported Cardiovascular: No symptoms reported Respiratory: No symptoms reported Physical Exam - Vital signs Vitals: Temp Pulse Resp BP Pulse Ox 98.6 F 72 18 103/52 L 98 06/04/19 08:59 06/04/19 08:59 06/04/19 08:59 06/04/19 08:59 06/04/19 08:59 Course - Re-evaluation Re-evalutation: 06/04/19 11:15 pt. feels better at time of d/c -- expressed desire to go home - Vital Signs Vital signs: Temp Pulse Resp BP Pulse Ox 98.6 F 72 18 103/52 L 98 06/04/19 08:59 06/04/19 08:59 06/04/19 08:59 06/04/19 08:59 06/04/19 08:59 - Laboratory Result Diagrams: 06/04/19 09:24 06/04/19 09:24 - Diagnostic Test Radiology reviewed: Reports reviewed - U/S neg Discharge - Discharge Clinical Impression: Abdominal pain Qualifiers: Abdominal location: epigastric Qualified Code(s): R10.13 - Epigastric pain Condition: Stable Disposition: HOME, SELF-CARE Instructions: Abdominal Pain ([facility]), Toradol Injection ([facility]) Additional Instructions: rest, take meds as prescribed,liquids for 24 hrs., return if worse Prescriptions: Esomeprazole Magnesium [Nexium] 20 mg PO BID #20 capsule.dr Referrals: [facility] [NO LOCAL MD] - Follow up as needed
[2019-06-04 09:52] LABS: ABSOLUTE BASOPHILS # (AUTO) 0.1 10^3/uL (0.0-0.2); ABSOLUTE EOSINOPHILS # (AUTO) 0.1 10^3/uL (0.0-0.6); ABSOLUTE LYMPHOCYTES (AUTO) 1.8 10^3/uL (0.5-4.7); ABSOLUTE MONOCYTES (AUTO) 0.4 10^3/uL (0.1-1.4); ABSOLUTE NEUT (AUTO) 4.6 10^3/uL (1.7-8.2); BASOPHILS % (AUTO) 1.1 % (0-2); EOSINOPHILS % (AUTO) 1.3 % (0-6); HEMATOCRIT 40.7 % (36.0-47.0); HEMOGLOBIN 13.8 g/dL (12.0-15.5); LYMPHOCYTES % (AUTO) 26.5 % (13-45); MEAN CORPUSCULAR HEMOGLOBIN 29.9 pg (27.0-33.4); MEAN CORPUSCULAR HGB CONC 33.9 g/dL (32.0-36.0); MEAN CORPUSCULAR VOLUME 88 fl (80-97); MONOCYTES % (AUTO) 5.4 % (3-13); PLATELET COUNT 319 10^3/uL (150-450); RED BLOOD COUNT 4.61 10^6/uL (3.72-5.28); RED CELL DISTRIBUTION WIDTH 13.3 % (11.5-14.0); SEGMENTED NEUTROPHILS % (AUTO) 65.7 % (42-78); TOTAL CELLS COUNTED % (AUTO) 100 %; WHITE BLOOD COUNT 6.9 10^3/uL (4.0-10.5)
[2019-06-04 10:04] LABS: APPEARANCE,URINE CLEAR; COLOR,URINE STRAW; GLUCOSE, URINE NEGATIVE (NEGATIVE)
[2019-06-04 10:05] LABS: BILIRUBIN,URINE NEGATIVE (NEGATIVE); KETONES,URINE NEGATIVE (NEGATIVE); LEUKOCYTE ESTERASE,URINE NEGATIVE (NEGATIVE); NITRITE,URINE NEGATIVE (NEGATIVE); PROTEIN,URINE NEGATIVE (NEGATIVE); URINE SPECIFIC GRAVITY 1.008; UROBILINOGEN,URINE NEGATIVE mg/dL (<2.0)
[2019-06-04 10:07] LABS: ALANINE AMINOTRANSFERASE 36 U/L (9-52); ALBUMIN 4.7 g/dL (3.5-5.0); ALKALINE PHOSPHATASE 71 U/L (38-126); AMYLASE 59 U/L (30-110); ANION GAP 10 (5-19); ASPARTATE AMINO TRANSFERASE 33 U/L (14-36); BILIRUBIN,DIRECT 0.1 mg/dL (0.0-0.4); BILIRUBIN,TOTAL 0.5 mg/dL (0.2-1.3); BLOOD UREA NITROGEN 11 mg/dL (7-20); CALCIUM 10.1 mg/dL (8.4-10.2); CARBON DIOXIDE 29 mmol/L (22-30); CHLORIDE 103 mmol/L (98-107); GLUCOSE 110 mg/dL (75-110); POTASSIUM 4.4 mmol/L (3.6-5.0); SODIUM 141.5 mmol/L (137-145)
--- NOTE | 2019-06-04 11:06 | RADIOLOGY REPORT (SQ) ---
EXAM DESCRIPTION: U/S ABDOMEN LTD W/DOPPLER COMPLETED DATE/TIME: 06/04/2019 10:26 am REASON FOR STUDY: upper abd pain COMPARISON: CT abdomen pelvis 08/02/2018 Right upper quadrant ultrasound 12/22/2016 TECHNIQUE: Dynamic and static grayscale images acquired of the abdomen and recorded on PACS. Additio nal selected color Doppler and spectral images recorded. LIMITATIONS: Body habitus, midline bowel gas FINDINGS: PANCREAS: Midline pancreas is unremarkable LIVER: No masses. Echotexture normal. LIVER VASCULATURE: Normal directional flow of the main portal vein and hepatic veins. GALLBLADDER: Post cholecystectomy ULTRASOUND-DETECTED BROWN'S SIGN: Not applicable INTRAHEPATIC DUCTS AND COMMON DUCT: CBD and intrahepatic ducts normal caliber. No filling defects. INFERIOR VENA CAVA: Normal flow. AORTA: No aneurysm. RIGHT KIDNEY: Normal size. Normal echogenicity. No solid or suspicious masses. No hydronephrosis. No calcifications. PERITONEAL AND RIGHT PLEURAL SPACE: No ascites or effusions. OTHER: No other significant findings. IMPRESSION: Post cholecystectomy. Otherwise unremarkable study TECHNICAL DOCUMENTATION: JOB ID: [id number]- All Rights Reserved Reading location - IP/workstation name: [email or web address]
[2019-06-04] MEDS ORDERED: HYDROCODONE/ACETAMINOPHEN 5-325 MG TABLET PO ONE (11:15)
[2019-06-04 11:28] VITALS: BP 109/65
[2019-06-04] MEDS ORDERED: MORPHINE SULFATE 10 MG/ML INJ IV ONE ×2 (11:31→13:06)
--- NOTE | 2019-06-04 12:26 | RADIOLOGY REPORT (SQ) ---
EXAM DESCRIPTION: CT ABD/PELVIS WITH IV ONLY COMPLETED DATE/TIME: 06/04/2019 11:57 am REASON FOR STUDY: abd pain COMPARISON: Abdominal ultrasound 06/04/2019 CT abdomen pelvis 08/02/2018 Abdominal films 07/13/2018 TECHNIQUE: CT scan of the abdomen and pelvis performed using helical scanning technique with dynamic intravenous contrast injection. No oral contrast. Images reviewed with lung, soft tissue, and bone windows. Reconstructed coronal and sagittal MPR images reviewed. Delayed images for evaluation of the urinary system also acquired. All images stored on PACS. All CT scanners at this facility use dose modulation, iterative reconstruction, and/or weight based d osing when appropriate to reduce radiation dose to as low as reasonably achievable (ALARA). [facility]: Dose Right [facility]: CareDose [facility]: Dose Right [facility]: Teradose 4D [facility]: ethority CONTRAST TYPE AND DOSE: contrast/concentration: Isovue 350.00 mg/ml; Total Contrast Delivered: 90.0 ml; Total Saline Delivered: 70.0 ml RENAL FUNCTION: Creatinine 0.5 RADIATION DOSE: CT Rad equipment meets quality standard of care and radiation dose reduction techniq ues were employed. CTDIvol: 9.0 - 12.6 mGy. DLP: 1156 mGy-cm.. LIMITATIONS: None. FINDINGS: LOWER CHEST: No significant findings. No nodules or infiltrates. LIVER: Normal size. No masses. No dilated ducts. SPLEEN: Normal size. No focal lesions. PANCREAS: No masses. No significant calcifications. No adjacent inflammation or peripancreatic fluid collections. Pancreatic duct not dilated. GALLBLADDER: Surgically absent ADRENAL GLANDS: No significant masses or asymmetry. RIGHT KIDNEY AND URETER: No solid masses. No significant calcifications. No hydronephrosis or hyd roureter. LEFT KIDNEY AND URETER: No solid masses. No significant calcifications. No hydronephrosis or hydr oureter. AORTA AND VESSELS: No aneurysm. No dissection. Renal arteries, SMA, celiac without stenosis. RETROPERITONEUM: No retroperitoneal adenopathy, hemorrhage or masses. BOWEL AND PERITONEAL CAVITY: No masses or inflammatory changes. No free fluid or peritoneal masses. APPENDIX: Normal. PELVIS: No mass. No free fluid. Normal bladder. Normal size uterus and ovaries, 3.5 cm right ovaria n cyst. IUD in the uterus. ABDOMINAL WALL: No masses. No hernias. BONES: No significant or acute findings. OTHER: No other significant finding. IMPRESSION: NO SIGNIFICANT OR ACUTE FINDING IN THE ABDOMEN OR PELVIS ON CT SCAN WITH IV CONTRAST. TECHNICAL DOCUMENTATION: JOB ID: [id number] Quality ID # [id number]: Final reports with documentation of one or more dose reduction techniques (e.g., Au tomated exposure control, adjustment of the mA and/or kV according to patient size, use of iterative reconstruction technique) 2010 [employer]- All Rights Reserved Reading location - IP/workstation name: [email or web address]
== END 2019-06-04 13:34 | disposition home or self-care (01) ==
LOC: ER 08:55
DX: R10.13 Epigastric pain (principal); Z90.49 Acquired absence of other specified parts of digestive tract
CPT/HCPCS: 96376; 99284; 96374; 96375; 36415; 82150; 83690; 84703; 85025; 80053; 81001; 76705; 93976; 74177; J3490; J1885; J2270; J2405

== ENCOUNTER 2019-06-07 00:18 | Emergency (ER) | payer OTHER ==
[2019-06-07 01:43] LABS: APPEARANCE,URINE HAZY; BILIRUBIN,URINE NEGATIVE (NEGATIVE); COLOR,URINE YELLOW; GLUCOSE, URINE NEGATIVE (NEGATIVE); KETONES,URINE NEGATIVE (NEGATIVE); LEUKOCYTE ESTERASE,URINE NEGATIVE (NEGATIVE); NITRITE,URINE NEGATIVE (NEGATIVE); PROTEIN,URINE NEGATIVE (NEGATIVE)
[2019-06-07 01:44] LABS: URINE SPECIFIC GRAVITY 1.022
[2019-06-07 01:50] LABS: ABSOLUTE BASOPHILS # (AUTO) 0.1 10^3/uL (0.0-0.2); ABSOLUTE EOSINOPHILS # (AUTO) 0.2 10^3/uL (0.0-0.6); ABSOLUTE LYMPHOCYTES (AUTO) 2.5 10^3/uL (0.5-4.7); ABSOLUTE MONOCYTES (AUTO) 0.8 10^3/uL (0.1-1.4); ABSOLUTE NEUT (AUTO) 6.6 10^3/uL (1.7-8.2); BASOPHILS % (AUTO) 0.8 % (0-2); HEMATOCRIT 38.9 % (36.0-47.0); HEMOGLOBIN 13.1 g/dL (12.0-15.5); LYMPHOCYTES % (AUTO) 24.7 % (13-45); MEAN CORPUSCULAR HGB CONC 33.7 g/dL (32.0-36.0); MEAN CORPUSCULAR VOLUME 89 fl (80-97); MONOCYTES % (AUTO) 7.9 % (3-13); PLATELET COUNT 317 10^3/uL (150-450); RED BLOOD COUNT 4.38 10^6/uL (3.72-5.28); SEGMENTED NEUTROPHILS % (AUTO) 64.6 % (42-78); TOTAL CELLS COUNTED % (AUTO) 100 %; WHITE BLOOD COUNT 10.3 10^3/uL (4.0-10.5)
[2019-06-07] MEDS ORDERED: LIDOCAINE 2% VISCOUS SOLN 20 ML UDCUP PO ONE (01:55)
[2019-06-07] MEDS ORDERED: MAG HYDROX/AL HYDROX/SIMETH SUSP 30 ML UDCUP PO ONE (01:55)
[2019-06-07] MEDS ORDERED: METOCLOPRAMIDE HCL ORAL SOLN 10 MG/10 ML UDCUP PO ONE (01:55)
--- NOTE | 2019-06-07 01:58 | ER Document Report ---
ED General - General Chief Complaint: Abdominal Pain Stated Complaint: ABDOMINAL PAIN Time Seen by Provider: 06/07/19 01:46 Notes: Patient is a pleasant 23 old female presents with complaint of pain is mostly in epigastric. Is worse with eating. She has had a few episodes of vomiting. No blood in emesis. No diarrhea. No pain or burning with urination. No abnormal vaginal discharge. She says sometimes pain will radiate from the epigastrium down into the lower abdomen and also sometimes around to the back. She was seen here a few days ago. She had normal labs and urinalysis. She had a CT scan and ultrasound of the abdomen which were all negative. She was sent home on omeprazole. She says she has been taking the omeprazole but it has not been helping. TRAVEL OUTSIDE OF THE [place] IN LAST 30 DAYS: No - Related Data Allergies/Adverse Reactions: No Known Allergies Allergy (Verified 06/07/19 00:25) Past Medical History - Social History Smoking Status: Never Smoker Frequency of alcohol use: None Drug Abuse: None Family History: Reviewed & Not Pertinent, Other - Mother had gallbladder removed. No family history of anesthesia problems. 5-month-old healthy baby boy. Renal/ Medical History: Denies: Hx Peritoneal Dialysis GI Medical History: Reports: Hx Gastroesophageal Reflux Disease Psychiatric Medical History: Denies: Hx Depression Past Surgical History: Reports: Hx Cholecystectomy - 10/24 - Immunizations Hx Diphtheria, Pertussis, Tetanus Vaccination: Yes Review of Systems - Review of Systems Notes: My Normal Review Basic REVIEW OF SYSTEMS: CONSTITUTIONAL : Denies fever, chills, or sweats. Denies recent illness. RESPIRATORY: Denies cough, cold, or chest congestion. Denies shortness of breath, difficulty breathing, or wheezing. GASTROINTESTINAL: Has abdominal pain. Denies nausea, vomiting, or diarrhea. GENITOURINARY: Denies difficulty urinating, painful urination, burning, yesenia quency, or blood in urine. FEMALE GENITOURINARY: Denies vaginal bleeding, abnormal or irregular periods. MUSCULOSKELETAL: Denies neck or back pain or joint pain or swelling. SKIN: Denies rash or skin lesions. NEUROLOGICAL: Denies altered mental status or loss of consciousness. Denies headache. Denies weakness or paralysis or loss of use of either side. Denies problems with gait or speech. Denies sensory or motor loss. ALL OTHER SYSTEMS REVIEWED AND NEGATIVE. Physical Exam - Vital signs Vitals: Temp Pulse Resp BP Pulse Ox 97.9 F 66 20 105/81 98 06/07/19 00:23 06/07/19 00:06/07/19 00:06/07/19 00:06/07/19 00:23 - Notes Notes: General Appearance: Well nourished, alert, cooperative, no acute distress, ALT obvious discomfort. Well-appearing. Vitals: reviewed, See vital signs table. Head: no swelling or tenderness to the head Eyes: PERRL, EOMI, Conjuctiva clear Mouth: No decreasd moisture Lungs: No wheezing, No rales, No rhonci, No accessory muscle use, good air exchange bilaterally. Heart: Normal rate, Regular rythm, No murmur, no rub Abdomen: Normal BS, soft, No rigidity, moderate pain to the epigastric region. Mild pain to bilateral lower abdomen., No guarding, no rebound, no abdominal masses, no organomegaly Extremities: good pulses in all extremities, no swelling or tenderness in the extremities, no edema. Skin: warm, dry, appropriate color, no rash Neuro: speech clear, oriented x 3, normal affect, responds appropriately to questions. Course - Re-evaluation Re-evalutation: 06/07/19 03:41 I suspect the patient's pain is related to severe gastritis. The only thing he goes against is that she has some pain that radiates into her lower abdomen. She had CT scans few days ago and it was normal. Her labs have remained normal. I do not feel that she requires any current imaging. Her pain is worse with eating and she has been taking large amounts of NSAIDs over the last week and therefore I think this further points to her pain is related to gastritis or nonbleeding ulcer. I will place her on Carafate. I encouraged her to continue take the omeprazole. I will prescribe her Zofran for any nausea. I will refer her to GI. I informed her to stop taking NSAID medications. I encouraged her return to ER if she has worsening pain, vomiting of blood, black tarry stools, fevers, or if she feels like she is worsening. Patient agrees with plan and will be discharged home. Dictation of this chart was performed using voice recognition software; therefore, there may be some unintended grammatical errors. - Vital Signs Vital signs: Temp Pulse Resp BP Pulse Ox 97.9 F 66 20 105/81 98 06/07/19 00:23 06/07/19 00:23 06/07/19 00:23 06/07/19 00:23 06/07/19 00:23 - Laboratory Result Diagrams: 06/07/19 01:15 06/07/19 01:15 Laboratory results interpreted by me: 06/07/19 01:15 Urine Urobilinogen 4.0 H Discharge - Discharge Clinical Impression: Abdominal pain Qualifiers: Abdominal location: unspecified location Qualified Code(s): R10.9 - Unspecified abdominal pain Condition: Good Disposition: HOME, SELF-CARE Additional Instructions: I prescribed medication called Carafate. This medication will help ease some the pain in your stomach. Please take it before every meal and before going to bed at night. I have also prescribed a nausea medicine called Zofran. This will help prevent vomiting. You only have to take it if you are nauseous. I will refer you to the GI physician. His name is Dr. Jurado. Please call his office to make a follow-up appointment. Please return to the ER if you have worsening pain, fevers, vomiting of blood, blood in your stool, or black tarry stools. Please avoid NSAID medication such as ibuprofen, Motrin, aspirin, BC powders, Aleve, Naprosyn. It is safe to take Tylenol. Prescriptions: Ondansetron [Zofran Odt 4 mg Tablet] 1 tab PO Q4H PRN #15 tab.rapdis PRN Reason: For Nausea/Vomiting Sucralfate [Carafate 1 gm Tablet] 1 gm PO ACHS #120 tablet Referrals: VARGHESE JURADO MD [ACTIVE STAFF] - Follow up in 3-5 days
[2019-06-07 02:21] LABS: ALANINE AMINOTRANSFERASE 49 U/L (9-52); ALBUMIN 4.6 g/dL (3.5-5.0); ALKALINE PHOSPHATASE 74 U/L (38-126); ANION GAP 11 (5-19); ASPARTATE AMINO TRANSFERASE 32 U/L (14-36); BILIRUBIN,DIRECT 0.2 mg/dL (0.0-0.4); BILIRUBIN,TOTAL 0.5 mg/dL (0.2-1.3); BLOOD UREA NITROGEN 19 mg/dL (7-20); CALCIUM 9.8 mg/dL (8.4-10.2); CARBON DIOXIDE 27 mmol/L (22-30); CHLORIDE 103 mmol/L (98-107); GLUCOSE 93 mg/dL (75-110); LIPASE 86.4 U/L (23-300); POTASSIUM 4.5 mmol/L (3.6-5.0); SODIUM 140.5 mmol/L (137-145); TOTAL PROTEIN 7.8 g/dL (6.3-8.2)
[2019-06-07] MEDS ORDERED: SUCRALFATE 1 GM TABLET PO ONE (03:42)
[2019-06-07 04:10] VITALS: BP 100/82
== END 2019-06-07 04:11 | disposition home or self-care (01) ==
LOC: ER 00:18
DX: R10.9 Unspecified abdominal pain (principal); R10.13 Epigastric pain; R11.10 Vomiting, unspecified; R10.30 Lower abdominal pain, unspecified; M54.9 Dorsalgia, unspecified; Z79.899 Other long term (current) drug therapy
CPT/HCPCS: 99284; 36415; 83690; 85025; 81025; 80053; 81001; J3490

== ENCOUNTER 2019-07-19 19:49 | Emergency (ER) | payer OTHER ==
[2019-07-19] MEDS ORDERED: ONDANSETRON 4 MG TAB.RAPDIS PO ONE (20:29)
[2019-07-19] MEDS ORDERED: HYDROCODONE/ACETAMINOPHEN 5-325 MG TABLET PO ONE (20:29)
--- NOTE | 2019-07-19 20:32 | ER Document Report ---
ED Medical Screen (RME) - General Chief Complaint: Abdominal Pain Stated Complaint: RIGHT SIDE PAIN Time Seen by Provider: 07/19/19 20:26 Notes: Patient is a 23-year-old female who presents to the emergency department with a chief complaint of right lower quadrant pain. Patient states this has been present for 2 days and is continued to get worse. Patient reports this is a stabbing/constant pain. Patient states she has had nausea with vomiting. Patient denies diarrhea. Patient denies fever. Patient has not taken anything for her pain. Patient reports she ended her menstrual cycle last week. Patient reports vaginal bleeding that she reports is like a spotting that started when the right lower quadrant pain started. Patient states she is sexually active, patient denies vaginal discharge. TRAVEL OUTSIDE OF THE [place] IN LAST 30 DAYS: No - Related Data Allergies/Adverse Reactions: No Known Allergies Allergy (Verified 06/07/19 00:25) Past Medical History Renal/ Medical History: Denies: Hx Peritoneal Dialysis GI Medical History: Reports: Hx Gastroesophageal Reflux Disease Psychiatric Medical History: Denies: Hx Depression Past Surgical History: Reports: Hx Cholecystectomy - 10/24 - Immunizations Hx Diphtheria, Pertussis, Tetanus Vaccination: Yes History of Influenza Vaccine for 08/2017 - 01/2018 Season: No Physical Exam - Vital signs Vitals: Temp Pulse Resp BP Pulse Ox 98.2 F 84 18 111/60 94 07/19/19 19:58 07/19/19 19:58 07/19/19 19:58 07/19/19 19:58 07/19/19 19:58 - Abdominal Inspection: Normal Distension: No distension Bowel sounds: Normal Tenderness: Tender - rlq tenderness Organomegaly: No organomegaly Course - Re-evaluation Re-evalutation: 07/19/19 20:31 I have greeted and performed a rapid initial assessment of this patient. A comprehensive ED assessment and evaluation of the patient, analysis of test results and completion of the medical decision making process will be conducted by additional ED providers. - Vital Signs Vital signs: Temp Pulse Resp BP Pulse Ox 98.2 F 84 18 111/60 94 07/19/19 19:58 07/19/19 19:58 07/19/19 19:58 07/19/19 19:58 07/19/19 19:58
[2019-07-19 20:43] LABS: APPEARANCE,URINE SLIGHTLY-CLOUDY; BILIRUBIN,URINE NEGATIVE (NEGATIVE); COLOR,URINE YELLOW; GLUCOSE, URINE NEGATIVE (NEGATIVE); KETONES,URINE NEGATIVE (NEGATIVE); LEUKOCYTE ESTERASE,URINE TRACE (NEGATIVE); NITRITE,URINE NEGATIVE (NEGATIVE); PROTEIN,URINE NEGATIVE (NEGATIVE); URINE SPECIFIC GRAVITY 1.024; UROBILINOGEN,URINE NEGATIVE mg/dL (<2.0)
[2019-07-19 20:52] LABS: ABSOLUTE BASOPHILS # (AUTO) 0.1 10^3/uL (0.0-0.2); ABSOLUTE EOSINOPHILS # (AUTO) 0.2 10^3/uL (0.0-0.6); ABSOLUTE LYMPHOCYTES (AUTO) 2.5 10^3/uL (0.5-4.7); ABSOLUTE MONOCYTES (AUTO) 0.5 10^3/uL (0.1-1.4); ABSOLUTE NEUT (AUTO) 5.6 10^3/uL (1.7-8.2); BASOPHILS % (AUTO) 0.8 % (0-2); EOSINOPHILS % (AUTO) 1.7 % (0-6); HEMATOCRIT 37.5 % (36.0-47.0); HEMOGLOBIN 12.6 g/dL (12.0-15.5); LYMPHOCYTES % (AUTO) 28.2 % (13-45); MEAN CORPUSCULAR HEMOGLOBIN 29.8 pg (27.0-33.4); MEAN CORPUSCULAR HGB CONC 33.5 g/dL (32.0-36.0); MEAN CORPUSCULAR VOLUME 89 fl (80-97); MONOCYTES % (AUTO) 5.2 % (3-13); PLATELET COUNT 292 10^3/uL (150-450); RED BLOOD COUNT 4.22 10^6/uL (3.72-5.28); SEGMENTED NEUTROPHILS % (AUTO) 64.1 % (42-78); TOTAL CELLS COUNTED % (AUTO) 100 %; WHITE BLOOD COUNT 8.8 10^3/uL (4.0-10.5)
[2019-07-19 21:06] LABS: ALBUMIN 4.5 g/dL (3.5-5.0); ALKALINE PHOSPHATASE 72 U/L (38-126); ANION GAP 9 (5-19); ASPARTATE AMINO TRANSFERASE 30 U/L (14-36); BILIRUBIN,DIRECT 0.2 mg/dL (0.0-0.4); BILIRUBIN,TOTAL 0.3 mg/dL (0.2-1.3); BLOOD UREA NITROGEN 21 mg/dL (7-20); CALCIUM 10.5 mg/dL (8.4-10.2); CARBON DIOXIDE 27 mmol/L (22-30); CHLORIDE 104 mmol/L (98-107); GLUCOSE 107 mg/dL (75-110); POTASSIUM 3.9 mmol/L (3.6-5.0); TOTAL PROTEIN 7.5 g/dL (6.3-8.2)
[2019-07-19] MEDS ORDERED: MORPHINE SULFATE 10 MG/ML INJ IV ONE (22:20)
[2019-07-19] MEDS ORDERED: ONDANSETRON HCL INJ/PF 4 MG/2 ML SDV IV ONE (22:20)
[2019-07-19] MEDS ORDERED: NORMAL SALINE 1000 ML 1,000 ML IV ONE (22:20)
--- NOTE | 2019-07-19 22:20 | ER Document Report ---
ED General - General Chief Complaint: Abdominal Pain Stated Complaint: RIGHT SIDE PAIN Time Seen by Provider: 07/19/19 20:26 Notes: Patient is a 23-year-old female previously healthy that presents to the emergency department for chief complaint of right lower quadrant abdominal pain. Patient reports a 2-day history of right lower quadrant abdominal pain she describes a sharp, worsening over the period of time, describes it as constant, worse with any pressure over her abdomen she cannot get comfortable. She denies any urinary symptoms such as dysuria, hematuria urinary frequency. She has some vaginal spotting, recently had her menstrual cycle. She denies any vaginal discharge. She has not noticed fevers or chills, but has had nausea and vomiting associated with her pain. Denies any diarrhea. She currently rates her pain as a 7 out of 10. Past Medical History: Denies chronic medical conditions Past Surgical History: Cholecystectomy Social History: Denies tobacco, alcohol or drug use. Family History: Reviewed and noncontributory for presenting illness Allergies: Reviewed, see documented allergy list. REVIEW OF SYSTEMS: Other than noted above, the 12 point review of systems was reviewed with the patient and were negative, all pertinent findings are included in the HPI. PHYSICAL EXAMINATION: Vital signs reviewed, nursing noted reviewed. GENERAL: Patient appears uncomfortable on exam but no acute distress. HEAD: Atraumatic, normocephalic. EYES: Eyes appear normal, extraocular movements intact, sclera anicteric, conjunctiva are normal. ENT: nares patent, oropharynx clear without exudates. Moist mucous membranes. NECK: Normal range of motion, supple without lymphadenopathy LUNGS: Breath sounds clear to auscultation bilaterally and equal. No wheezes rales or rhonchi. HEART: Regular rate and rhythm without murmurs ABDOMEN: Soft, right lower quadrant tenderness to palpation, without rebound, normoactive bowel sounds. No rebound, guarding, or rigidity. No masses appreciated. Pelvic Exam: With a forex trader present the exam was explained to the patient and patient agreed to proceed with exam. On exam, no external lesions or abnormalities noted. Internal speculum exam demonstrated normal appearing cervix without purulent discharge, scant blood noted in the vaginal vault. Swabs obtained. EXTREMITIES: Nontender, good range of motion, no pitting or edema. NEUROLOGICAL: No focal neurological deficits. Moves all extremities spontaneously Motor and sensory grossly intact on exam. PSYCH: Normal mood, normal affect. SKIN: Warm, Dry, normal turgor, no rashes or lesions noted on exposed skin TRAVEL OUTSIDE OF THE [place] IN LAST 30 DAYS: No - Related Data Allergies/Adverse Reactions: No Known Allergies Allergy (Verified 06/07/19 00:25) Past Medical History - Social History Smoking Status: Never Smoker Family History: Reviewed & Not Pertinent, Other - Mother had gallbladder removed. No family history of anesthesia problems. 5-month-old healthy baby boy. Patient has suicidal ideation: No Patient has homicidal ideation: No Renal/ Medical History: Denies: Hx Peritoneal Dialysis GI Medical History: Reports: Hx Gastroesophageal Reflux Disease Psychiatric Medical History: Denies: Hx Depression Past Surgical History: Reports: Hx Cholecystectomy - 10/24 - Immunizations Hx Diphtheria, Pertussis, Tetanus Vaccination: Yes Physical Exam - Vital signs Vitals: Temp Pulse Resp BP Pulse Ox 98.2 F 84 18 111/60 94 07/19/19 19:58 07/19/19 19:58 07/19/19 19:58 07/19/19 19:58 07/19/19 19:58 Course - Re-evaluation Re-evalutation: Patient seen and examined vital signs reviewed. Laboratory data and/or imaging were ordered as appropriate for the patient's presenting symptoms and complaint, with consideration of any critical or life threatening conditions that may be associated with their obtained history and exam as noted above. Patient was treated with IV fluids, morphine and Zofran Results were reviewed when available and demonstrated negative CT imaging of the abdomen and pelvis, due to this, transvaginal ultrasound was obtained, and was negative as well, patient continued to have some pain so she was given some IV Dilaudid, and additional Zofran and Reglan for her nausea. The patient was re-evaluated and was still having some discomfort, but it was improving, stating that it was only a little bit of pain, her pelvic exam was essentially unremarkable, GC and Chlamydia still pending, wet prep was unremarkable, low suspicion for PID in this patient, she states she is monogamous, and she had similar pain a month ago, was told she had an ovarian cyst, this time is just a little bit worse, did not have a cyst on her ultrasound today as possible she had a ruptured cyst, but no torsion seen today, to also possible that she may be developing endometriosis if she is having recurrent pain with timing around her menstrual cycle. I discussed this with the patient, did offer treating her for possible PID with doxycycline, but she elected to wait for results of the GC and chlamydia testing from endocervical swab, which I thought was reasonable, given that she was not presenting like a patient with PID, and she did not have any purulent drainage or discharge from her cervix and it appeared normal on exam. Evaluation was most consistent with right-sided pelvic pain, advised follow-up with women's health, given prescription for naproxen and Zofran. Results were discussed with the patient at this point, after careful consideration I feel that that patient can be discharged from the emergency department, the patient was educated treatments and reasons to return to the emergency department based on their presumed diagnosis as noted above, they were advised to followup with a primary care physician in 2-3 days. Patient was agreeable to plan of care. *Note is created using voice recognition software and may contain spelling, syntax or grammatical errors. Laboratory 07/19/19 07/19/19 07/19/19 19:55 20:36 20:36 WBC 8.8 RBC 4.22 Hgb 12.6 Hct 37.5 MCV 89 MCH 29.8 MCHC 33.5 RDW 13.0 Plt Count 292 Seg Neutrophils % 64.1 Lymphocytes % 28.2 Monocytes % 5.2 Eosinophils % 1.7 Basophils % 0.8 Absolute Neutrophils 5.6 Absolute Lymphocytes 2.5 Absolute Monocytes 0.5 Absolute Eosinophils 0.2 Absolute Basophils 0.1 Sodium 140.2 Potassium 3.9 Chloride 104 Carbon Dioxide 27 Anion Gap 9 BUN 21 H Creatinine 0.63 Est GFR ( Amer) > 60 Est GFR (Non-Af Amer) > 60 Glucose 107 Calcium 10.5 H Total Bilirubin 0.3 Direct Bilirubin 0.2 Neonat Total Bilirubin Not Reportable Neonat Direct Bilirubin Not Reportable Neonat Indirect Bili Not Reportable AST 30 ALT 39 Alkaline Phosphatase 72 Total Protein 7.5 Albumin 4.5 Urine Color YELLOW Urine Appearance SLIGHTLY-CLOUDY Urine pH 6.0 Ur Specific [place] 1.024 Urine Protein NEGATIVE Urine Glucose (UA) NEGATIVE Urine Ketones NEGATIVE Urine Blood MODERATE H Urine Nitrite NEGATIVE Urine Bilirubin NEGATIVE Urine Urobilinogen NEGATIVE Ur Leukocyte Esterase TRACE H Urine WBC (Auto) 2 Urine RBC (Auto) 6 Squamous Epi Cells Auto 4 Urine Mucus (Auto) RARE Urine Ascorbic Acid NEGATIVE Urine HCG, Qual NEGATIVE Trichomonas (Wet Prep) Vaginal WBC Vaginal RBC Vaginal Yeast 07/20/19 02:10 WBC RBC Hgb Hct MCV MCH MCHC RDW Plt Count Seg Neutrophils % Lymphocytes % Monocytes % Eosinophils % Basophils % Absolute Neutrophils Absolute Lymphocytes Absolute Monocytes Absolute Eosinophils Absolute Basophils Sodium Potassium Chloride Carbon Dioxide Anion Gap BUN Creatinine Est GFR ( Amer) Est GFR (Non-Af Amer) Glucose Calcium Total Bilirubin Direct Bilirubin Neonat Total Bilirubin Neonat Direct Bilirubin Neonat Indirect Bili AST ALT Alkaline Phosphatase Total Protein Albumin Urine Color Urine Appearance Urine pH Ur Specific [place] Urine Protein Urine Glucose (UA) Urine Ketones Urine Blood Urine Nitrite Urine Bilirubin Urine Urobilinogen Ur Leukocyte Esterase Urine WBC (Auto) Urine RBC (Auto) Squamous Epi Cells Auto Urine Mucus (Auto) Urine Ascorbic Acid Urine HCG, Qual Trichomonas (Wet Prep) NO TRICHOMONAS SEEN Vaginal WBC 1+ WBCS SEEN Vaginal RBC 2+ RBCS SEEN Vaginal Yeast NO YEAST SEEN Abdomen/Pelvis CT 07/19/19 22:21 IMPRESSION: No acute inflammatory process. Normal appendix. Transvaginal US 07/19/19 23:47 IMPRESSION: Unremarkable study. - Vital Signs Vital signs: Temp Pulse Resp BP Pulse Ox 98.7 F 88 18 110/66 98 07/20/19 00:00 07/20/19 00:00 07/20/19 00:00 07/19/19 23:54 07/20/19 00:00 - Laboratory Result Diagrams: 07/19/19 20:36 07/19/19 20:36 Laboratory results interpreted by me: 07/19/19 07/19/19 19:55 20:36 BUN 21 H Calcium 10.5 H Urine Blood MODERATE H Ur Leukocyte Esterase TRACE H Discharge - Discharge Clinical Impression: Pelvic pain Condition: Stable Disposition: HOME, SELF-CARE Instructions: Pelvic Pain ([facility]) Additional Instructions: Please follow-up with the [facility] office, to establish care and to follow-up with them, please take the prescribed medications as directed, if your symptoms are worsening or not improving over the next few days, do not hesitate to return to the emergency department to be reevaluated. Prescriptions: Naproxen [Naprosyn] 500 mg PO BID PRN #30 tablet PRN Reason: abdominal pain Ondansetron [Zofran Odt 4 mg Tablet] 1 tab PO Q8H PRN #15 tab.rapdis PRN Reason: For Nausea/Vomiting Referrals: [facility] [Provider Group] - Follow up in 3-5 days
[2019-07-19] MEDS ORDERED: PROMETHAZINE HCL INJ 25 MG/1 ML VIAL ONE (22:26)
[2019-07-19] MEDS ORDERED: HYDROMORPHONE HCL INJ/PF 2 MG/ML AMPULE IV ONE (23:36)
--- NOTE | 2019-07-19 23:44 | RADIOLOGY REPORT (SQ) ---
CLINICAL HISTORY: rlq pain COMPARISON: None. TECHNIQUE: CT ABDOMEN PELVIS WITH IV CONTRAST on 07/19/2019 10:21 PM CDT This exam was performed according to our departmental dose-optimization program, which includes automated exposure control, adjustment of the mA and/or kV according to patient size and/or use of iterative reconstruction technique. FINDINGS: Lower lungs are clear. Abdomen: The liver is normal in appearance. There is no biliary dilatation. Cholecystectomy was performed. The pancreas and spleen are normal in appearance. The adrenal glands and kidneys are unremarkable. Abdominal aorta is normal in course and caliber without aneurysm. There is no free air. There is no retroperitoneal adenopathy. Pelvis: There is no bowel obstruction. Urinary bladder is unremarkable. There is no free fluid. Uterus is normal in size. Appendix is normal. Skeleton: There are no acute osseous findings. No suspicious bony lesions. IMPRESSION: No acute inflammatory process. Normal appendix.
[2019-07-20] MEDS ORDERED: METOCLOPRAMIDE HCL INJ/PF 10 MG/2 ML SDV IV ONE (00:55)
[2019-07-20] MEDS ORDERED: KETOROLAC TROMETHAMINE INJ/PF 30 MG/1 ML SDV IV ONE (01:11)
--- NOTE | 2019-07-20 01:16 | RADIOLOGY REPORT (SQ) ---
CLINICAL HISTORY: right pelvic pain COMPARISON: None. TECHNIQUE: US PELVIS TRANSVAGINAL on 07/19/2019 11:47 PM CDT FINDINGS: Uterus measures 8.0 cm. Endometrial stripe measures 4 mm. Uterus is normal in echotexture. Right ovary and left ovary are normal in size with patent flow. IMPRESSION: Unremarkable study.
[2019-07-20 02:28] LABS: T.VAGINALIS (WET MOUNT) NO TRICHOMONAS SEEN; YEAST (WET MOUNT) NO YEAST SEEN
[2019-07-20 02:29] LABS: RBCS (WET MOUNT) 2+ RBCS SEEN; WBCS (WET MOUNT) 1+ WBCS SEEN
[2019-07-20 03:22] VITALS: BP 118/64
[2019-07-20 06:52] LABS: CHLAM PCR NOT DETECTED (NOT DETECT)
== END 2019-07-20 03:23 | disposition home or self-care (01) ==
LOC: ER 19:49
DX: R10.2 Pelvic and perineal pain (principal); R10.31 Right lower quadrant pain; N93.9 Abnormal uterine and vaginal bleeding, unspecified; R11.2 Nausea with vomiting, unspecified
CPT/HCPCS: 36415; 85025; 81025; 80053; 81001; 74177; S0119; J2270; J1170; J2405; J7030; 76830; 87210; 87491; 87591; 93976; J1885; J2765

== ENCOUNTER 2019-08-17 23:00 | Emergency (ER) | payer SELFPAY ==
--- NOTE | 2019-08-18 00:44 | ER Document Report ---
HPI - HPI Patient complains to provider of: rlq abd pain x a few days Time Seen by Provider: 08/18/19 00:42 Onset/Duration: Gradual, Persistent, Waxing and waning Quality of pain: Achy, Cramping, Sharp Severity: Moderate Pain Level: 3 Context: 23 yr old female patient, with the listed pmh, here for rlq abdominal pain x 3 days. sx becoming more severe and persistent today so she came in. she has been seen here 4 other times in the last 8mths for abd pain here. 3 of those visits being in the last 2.5mths. she has had [address] scans in the last 2.5mths of her abd/pelv with iv contrast along with multiple abdominal/pelvic/renal US, and abdominal xrays, all resulting as negative per radiology when reviewed. her lmp was approx 2 wks ago. she does have a hx of ov cysts. she states the naproxen and zofran she was given here for this on her last visit last month helped but she ran out. she hasn't f/u with gi or obgyn. she has also had a few episodes of nonbloody nonbilious vomiting over the last few days. she has had a normal appetite. states pain came on suddenly and waxes and wanes. hasn't taken anything recently for her sx. denies currently having and IUD. denies . No abdominal surgeries other than a remote lap luis. No history of fibroids, endometriosis, or renal stones. Normal bowel movements. No UTI symptoms. No URI symptoms. No recent antibiotics or steroids. No history of diabetes or asthma. No vaginal discharge/complaints/lesions or concerns for STDs. No ripping or tearing sensation. Hasn't taken anything for her symptoms. No excessive NSAID use, Tylenol use, or EtOH. No prior history of pancreatitis, ulcers, GI bleed, IBS, Crohn's, or UC. no change in color or caliber or stool. no blood thinners. no fall or trauma. no other associated sx. Associated Symptoms: Vomiting. denies: Chest pain, Nonproductive cough, Productive cough, Fever, Headache, Shortness of breath, Sore throat Exacerbated by: Standing, Movement, Walking, Food Relieved by: Supine, Remaining still Similar symptoms previously: Yes Recently seen / treated by doctor: Yes - ROS Systems Reviewed and Negative: Yes All other systems reviewed and negative - to include 10 systems, unless mentioned in the hpi - REPRODUCTIVE Reproductive: DENIES: : Past Medical History - General Information source: Patient, [facility] Records - Social History Smoking Status: Unknown if Ever Smoked Frequency of alcohol use: None Drug Abuse: None Family History: Other - Mother had gallbladder removed. No family history of anesthesia problems. 5-month-old healthy baby boy. Patient has suicidal ideation: No Patient has homicidal ideation: No Renal/ Medical History: Denies: Hx Peritoneal Dialysis GI Medical History: Reports: Hx Gastroesophageal Reflux Disease Psychiatric Medical History: Denies: Hx Depression Past Surgical History: Reports: Hx Cholecystectomy - 09/2015 - Immunizations Immunizations up to date: Yes Hx Diphtheria, Pertussis, Tetanus Vaccination: Yes Vertical Provider Document - CONSTITUTIONAL Agree With Documented VS: Yes Exam Limitations: No Limitations General Appearance: WD/WN Notes: >>>> PHYSICAL_EXAM: GENERAL_APPEARANCE: well_nourished, alert, cooperative, no_acute_distress, mild_obvious_discomfort. Pleasant, young female, smiling, speaking in full sentences, in no sign of pain or resp distress, appears uncomfortable but not toxic, no one is with her VITALS: reviewed, see vital signs table. HEAD: normocephalic, atraumatic. no heller signs. no raccoon eyes. EYES: PERRL, EOMI, (-)scleral icterus. NOSE: no_nasal_discharge. MOUTH: (-)decreased moisture. THROAT: no_tonsilar_inflammation/hypertrophy/exudate NECK: supple, no_neck_tenderness, full rom. full strength. no meningeal signs. BACK: no midline_back_tenderness. no step offs or deformities CHEST_WALL: no_chest_tenderness. LUNGS: no_wheezing, (-)accessory muscle use, good air exchange bilateral. HEART: normal_rate, normal_rhythm, ABDOMEN: normal_BS, soft, abdomen-diffuse, mild-mod ttp rlq, (-)guarding, (- )rebound, no distension or peritoneal signs. neg murphys. neg mcburneys. no cva tenderness. neg heel strike. neg obturator. neg psoas. neg rovsign. GENITALS: no_ulcers_or_lesions on the genitals, no_lacerations on the genitals, PELVIC: (-)tender uterus, left_and_right adnexa non-tender, (-)CMT, (-)active bleeding, (scant white)discharge, no cervicitis, normal os, pt consented to exam. exam without incident. ed nurse at bedside during entire exam as fashion patternmaker. RECTAL: deferred EXTREMITIES: strength 5/5 in all_extremities, good pulses in all_extremities, no_edema, no_swelling\tenderness. full rom. normal gait. 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 brisk cap refill. SKIN: warm, dry, good_color, no_rash. no grossly visible overlying skin changes to suggest trauma NEURO: motor_intact, sensory_intact. cranial nerves 2-12 intact, cerebellar fxn intact MENTAL_STATUS: normal_affect, speech_clear, oriented_X_3, responds_appropriately to questions. - INFECTION CONTROL TRAVEL OUTSIDE OF THE [place] IN LAST 30 DAYS: No Course - Re-evaluation Re-evalutation: pt here for acute on chronic rlq abd pain in a young female of child bearing age x 3 days with a few episodes of vomiting. she is well appearing. can easily sit up and is asking for food and something to drink. she has been seen here 3 other times recently for abd pain and rlq abd pain in the last 2.5mths and already had [address] abd/pelv with iv contrasted ct scans that i reviewed along with US's and abd xr's all unrevealing as to a diagnosis of her sx and pain. she hasn't f/u with any one since her last visits here... sx could be mittleschmertz since she is 2wks off her menses or could be endometriosis or another etiology. her labs were unremarkable again. her transvag us with dopp was unremarkable again per rad and reviewed by myself. she states she is and has also before per review of previous notes said she was monogamous and has no concerns for stds and again has no signs of pid and doesn't want prophylactic tx. gc/chlam pending and they have been negative in the past. serial abd exams remain benign and pain resolved after toradol here. she is asking for food and well appearing. discussed option of getting another ct scan of her belly to look for appendicitis since we do not have a definitive answer for her rlq pain with ed attending dr corcoran and also with pt. dr corcoran advised against another ct in again a young female of child bearing age with two recent neg abd/pelv cts for the same complaint, and pt also agrees she doesn't want another ct. she also has no white count, normal vital signs, normal appetite, tolerating po, all not suggestive of acute appy at this time. she also has no inguinal lymphadenopathy or hernias grossly palpable. advised pt this could still be an early acute appy and if she should develop any new, worsening, returning, or concerning sx she needs to return to the ed verenice for further workup and tx. she assures me she will. pt seems reliable and verbalizes understanding and is in agreement to the differential diagnosis and tx plan. advised sx care. will dc with naproxen and zofran and advised strict and close f/u with pcp/gi/obgyn for further workup of this in the next 1-2 days. advised pelvic rest. gave medication precautions. advised we will call with any abnormal results that require change in plan of care. advised to f/u with pcp/obgyn/health dept/gi in 1-2 days. return for any worsening symptoms. vss. well appearing. satting well on ra. neurononfocal. On reexam, pt improved with tx listed. remained stable. nontoxic. well appearing. pain controlled. tolerating po. requesting to go home. serial abd exams remain benign case discussed with ER Attending, Dr. Corcoran, who directed and agrees with plan of care and advised no further workup indicated at this time and pt is stable for dc home with close f/u with pcp/specialist. Documentation achieved through voice recording which may lead to some occasional accidental typographical errors. Extensive efforts have been made to proof read documentation to make sure these are the least as possible. Category Date Time Status TRANSVAGINAL [U/S NON OB PEL TV W/DOPPLER] [US] Stat Exams 08/18/19 01:58 Completed CBC WITH DIFF [HEME] Stat Lab 08/18/19 02:15 Completed [facility] [MO] Stat Lab 08/18/19 03:15 Completed COMPREHENSIVE METABOLIC PANEL [CHEM] Stat Lab 08/18/19 02:15 Completed HCG QUALITATIVE, URINE [URIN] Stat Lab 08/18/19 01:50 Completed LIPASE [CHEM] Stat Lab 08/18/19 02:15 Completed URINALYSIS [URIN] Stat Lab 08/18/19 01:50 Completed URINE CULTURE [MC] Stat Lab 08/18/19 01:50 Completed WET M[place] [MO] Stat Lab 08/18/19 03:15 Completed Ketorolac Tromethamine [Toradol Inj/Pf 30 mg/1 ml Sdv] Med 08/18/19 01:54 Discontinued 30 mg IV NOW ONE Normal Saline 1000 ml [NaCl 0.9% 1000 ml IV Soln] 1,000 Med 08/18/19 01:53 Discontinued ml IV BOLUS Ondansetron HCl/Pf [Zofran Inj/Pf 4 mg/2 ml Sdv] Med 08/18/19 01:54 Discontinued 4 mg IV NOW ONE - Vital Signs Vital signs: Temp Pulse Resp BP Pulse Ox 98.6 F 60 16 102/66 99 08/17/19 23:10 08/17/19 23:10 08/17/19 23:10 08/17/19 23:10 08/17/19 23:10 Temp Pulse Resp BP Pulse Ox 08/18/19 05:00 97.8 F 60 15 104/51 L 98 08/18/19 03:46 98.1 F 57 L 15 102/54 L 99 08/17/19 23:10 98.6 F 60 16 102/66 99 - Laboratory Result Diagrams: 08/18/19 02:15 08/18/19 02:15 Laboratory results interpreted by me: Labs- Entire Visit 08/18/19 08/18/19 08/18/19 01:50 02:15 02:15 WBC 8.2 RBC 4.01 Hgb 11.9 L Hct 35.2 L MCV 88 MCH 29.6 MCHC 33.7 RDW 12.8 Plt Count 283 Lymph % (Auto) 36.8 [place] % (Auto) 8.0 Eos % (Auto) 2.5 Baso % (Auto) 0.8 Absolute Neuts (auto) 4.3 Absolute Lymphs (auto) 3.0 Absolute Monos (auto) 0.7 Absolute Eos (auto) 0.2 Absolute Basos (auto) 0.1 Seg Neutrophils % 51.9 Sodium 140.6 Potassium 3.9 Chloride 105 Carbon Dioxide 28 Anion Gap 8 BUN 15 Creatinine 0.62 Est GFR ( Amer) > 60 Est GFR (MDRD) Non-Af > 60 Glucose 93 Calcium 10.5 H Total Bilirubin 0.4 Direct Bilirubin 0.1 Neonat Total Bilirubin Not Reportable Neonat Direct Bilirubin Not Reportable Neonat Indirect Bili Not Reportable AST 31 ALT 39 Alkaline Phosphatase 69 Total Protein 7.3 Albumin 4.1 Lipase Urine Color YELLOW Urine Appearance SLIGHTLY-CLOUDY Urine pH 6.0 Ur Specific [place] 1.015 Urine Protein NEGATIVE Urine Glucose (UA) NEGATIVE Urine Ketones NEGATIVE Urine Blood SMALL H Urine Nitrite NEGATIVE Urine Bilirubin NEGATIVE Urine Urobilinogen NEGATIVE Ur Leukocyte Esterase NEGATIVE Urine WBC (Auto) 3 Urine RBC (Auto) 3 Urine Bacteria (Auto) TRACE Squamous Epi Cells Auto 4 Amorphous Sediment Auto TRACE Urine Mucus (Auto) RARE Urine Ascorbic Acid NEGATIVE Urine HCG, Qual NEGATIVE Trichomonas (Wet Prep) Vaginal WBC Vaginal RBC Vaginal Yeast Chlamydia DNA (PCR) N.gonorrhoeae DNA (PCR) 08/18/19 08/18/19 08/18/19 02:15 03:15 03:15 WBC RBC Hgb Hct MCV MCH MCHC RDW Plt Count Lymph % (Auto) [place] % (Auto) Eos % (Auto) Baso % (Auto) Absolute Neuts (auto) Absolute Lymphs (auto) Absolute Monos (auto) Absolute Eos (auto) Absolute Basos (auto) Seg Neutrophils % Sodium Potassium Chloride Carbon Dioxide Anion Gap BUN Creatinine Est GFR ( Amer) Est GFR (MDRD) Non-Af Glucose Calcium Total Bilirubin Direct Bilirubin Neonat Total Bilirubin Neonat Direct Bilirubin Neonat Indirect Bili AST ALT Alkaline Phosphatase Total Protein Albumin Lipase 86.3 Urine Color Urine Appearance Urine pH Ur Specific [place] Urine Protein Urine Glucose (UA) Urine Ketones Urine Blood Urine Nitrite Urine Bilirubin Urine Urobilinogen Ur Leukocyte Esterase Urine WBC (Auto) Urine RBC (Auto) Urine Bacteria (Auto) Squamous Epi Cells Auto Amorphous Sediment Auto Urine Mucus (Auto) Urine Ascorbic Acid Urine HCG, Qual Trichomonas (Wet Prep) NO TRICHOMONAS SEEN Vaginal WBC 1+ WBCS SEEN Vaginal RBC FEW RBCS SEEN Vaginal Yeast NO YEAST SEEN Chlamydia DNA (PCR) NOT DETECTED N.gonorrhoeae DNA (PCR) NOT DETECTED - Diagnostic Test Radiology reviewed: Image reviewed, Reports reviewed Radiology results interpreted by me: Transvaginal US 08/18/19 01:58 IMPRESSION: Unremarkable study. Discharge - Discharge Clinical Impression: Right lower quadrant abdominal pain Vomiting Qualifiers: Vomiting type: unspecified Vomiting Intractability: non-intractable Nausea presence: with nausea Qualified Code(s): R11.2 - Nausea with vomiting, unspecified Condition: Good Disposition: HOME, SELF-CARE Instructions: Abdominal Pain ([facility]), Observation for Appendicitis ([facility]) Additional Instructions: Follow-up with PCP/obgyn/GI in 1 to 2 days. Return for any worsening symptoms. do not take any other nsaids with the naproxen. drink plenty of fluids. bland diet. take the medication as prescribed. Prescriptions: Ondansetron HCl [Zofran 4 mg Tablet] 1 tab PO Q8HP PRN #14 tablet PRN Reason: For Nausea/Vomiting Naproxen 500 mg PO BID PRN #20 tablet PRN Reason:
[2019-08-18] MEDS ORDERED: NORMAL SALINE 1000 ML 1,000 ML IV ONE (01:53)
[2019-08-18] MEDS ORDERED: KETOROLAC TROMETHAMINE INJ/PF 30 MG/1 ML SDV IV ONE (01:54)
[2019-08-18] MEDS ORDERED: ONDANSETRON HCL INJ/PF 4 MG/2 ML SDV IV ONE (01:54)
[2019-08-18 02:11] LABS: AMORPHOUS SEDIMENT,URINE TRACE /HPF; APPEARANCE,URINE SLIGHTLY-CLOUDY; BILIRUBIN,URINE NEGATIVE (NEGATIVE); COLOR,URINE YELLOW; GLUCOSE, URINE NEGATIVE (NEGATIVE); KETONES,URINE NEGATIVE (NEGATIVE); LEUKOCYTE ESTERASE,URINE NEGATIVE (NEGATIVE); NITRITE,URINE NEGATIVE (NEGATIVE); PROTEIN,URINE NEGATIVE (NEGATIVE); URINE SPECIFIC GRAVITY 1.015; UROBILINOGEN,URINE NEGATIVE mg/dL (<2.0)
[2019-08-18 02:30] LABS: ABSOLUTE BASOPHILS # (AUTO) 0.1 10^3/uL (0.0-0.2); ABSOLUTE EOSINOPHILS # (AUTO) 0.2 10^3/uL (0.0-0.6); ABSOLUTE MONOCYTES (AUTO) 0.7 10^3/uL (0.1-1.4); ABSOLUTE NEUT (AUTO) 4.3 10^3/uL (1.7-8.2); BASOPHILS % (AUTO) 0.8 % (0-2); EOSINOPHILS % (AUTO) 2.5 % (0-6); HEMATOCRIT 35.2 % (36.0-47.0); HEMOGLOBIN 11.9 g/dL (12.0-15.5); LYMPHOCYTES % (AUTO) 36.8 % (13-45); MEAN CORPUSCULAR HEMOGLOBIN 29.6 pg (27.0-33.4); MEAN CORPUSCULAR HGB CONC 33.7 g/dL (32.0-36.0); MEAN CORPUSCULAR VOLUME 88 fl (80-97); PLATELET COUNT 283 10^3/uL (150-450); RED BLOOD COUNT 4.01 10^6/uL (3.72-5.28); RED CELL DISTRIBUTION WIDTH 12.8 % (11.5-14.0); SEGMENTED NEUTROPHILS % (AUTO) 51.9 % (42-78); TOTAL CELLS COUNTED % (AUTO) 100 %; WHITE BLOOD COUNT 8.2 10^3/uL (4.0-10.5)
[2019-08-18 03:12] LABS: ALBUMIN 4.1 g/dL (3.5-5.0); ALKALINE PHOSPHATASE 69 U/L (38-126); ANION GAP 8 (5-19); ASPARTATE AMINO TRANSFERASE 31 U/L (14-36); BILIRUBIN,DIRECT 0.1 mg/dL (0.0-0.4); BILIRUBIN,TOTAL 0.4 mg/dL (0.2-1.3); BLOOD UREA NITROGEN 15 mg/dL (7-20); CALCIUM 10.5 mg/dL (8.4-10.2); CARBON DIOXIDE 28 mmol/L (22-30); CHLORIDE 105 mmol/L (98-107); GLUCOSE 93 mg/dL (75-110); POTASSIUM 3.9 mmol/L (3.6-5.0); TOTAL PROTEIN 7.3 g/dL (6.3-8.2)
[2019-08-18 03:32] LABS: RBCS (WET MOUNT) FEW RBCS SEEN; T.VAGINALIS (WET MOUNT) NO TRICHOMONAS SEEN; WBCS (WET MOUNT) 1+ WBCS SEEN; YEAST (WET MOUNT) NO YEAST SEEN
--- NOTE | 2019-08-18 04:03 | RADIOLOGY REPORT (SQ) ---
CLINICAL HISTORY: rlq pain. hx of ov cyst. r/o torsion COMPARISON: None. TECHNIQUE: US PELVIS TRANSVAGINAL on 08/18/2019 1:58 AM CDT FINDINGS: Uterus measures 7.9 cm and is normal in echotexture. Endometrium measures 2 mm. Cervix measures 2.3 cm. Right ovary measures 3.2 x 2.4 x 2.1 cm and left ovary measures 2.0 x 2.7 x 3.5 cm. Both ovaries are normal in echotexture with patent flow. IMPRESSION: Unremarkable study.
[2019-08-18 05:01] VITALS: BP 104/51
[2019-08-18 05:03] LABS: CHLAM PCR NOT DETECTED (NOT DETECT)
== END 2019-08-18 05:00 | disposition home or self-care (01) ==
LOC: ER 23:00
DX: R10.31 Right lower quadrant pain (principal); G89.29 Other chronic pain; R11.2 Nausea with vomiting, unspecified; Z79.899 Other long term (current) drug therapy
CPT/HCPCS: 99284; 96361; 96374; 96375; 36415; 87086; 87210; 83690; 85025; 81025; 80053; 81001; 87491; 87591; 76830; 93976; J1885; J2405; J7030

== ENCOUNTER 2019-08-30 22:59 | Emergency (ER) | payer SELFPAY ==
--- NOTE | 2019-08-31 01:26 | RADIOLOGY REPORT (SQ) ---
EXAM DESCRIPTION: XR CHEST 2 VIEWS COMPLETED DATE/TME: 08/31/2019 00:54 CLINICAL HISTORY: 23 years, Female, cough, back pain Comparison: None FINDINGS: No focal lung consolidation. No pleural effusion. No pneumothorax. Cardiac and mediastinal silhouette is unremarkable. No acute osseous abnormality. Soft tissues are unremarkable. IMPRESSION: No acute findings. No focal lung consolidation.
--- NOTE | 2019-08-31 01:26 | ER Document Report ---
ED General - General Chief Complaint: Rib Pain Stated Complaint: BACK PAIN Time Seen by Provider: 08/31/19 00:49 Notes: 23-year-old female presents emergency department complaining of pain in her back by her right shoulder blade that radiates to her chest and also to her left shoulder onset yesterday. Patient states that she has had a nonproductive cough for the past week associated with pleuritic chest pain, fevers and chills. No upper respiratory symptoms such as rhinorrhea, sore throat or ear pain. Denies any shortness of breath. Denies any history of asthma. TRAVEL OUTSIDE OF THE [place] IN LAST 30 DAYS: No - Related Data Allergies/Adverse Reactions: No Known Allergies Allergy (Verified 06/07/19 00:25) Past Medical History - General Information source: Patient - Social History Smoking Status: Never Smoker Frequency of alcohol use: None Drug Abuse: None Family History: Reviewed & Not Pertinent, Other - Mother had gallbladder removed. No family history of anesthesia problems. 5-month-old healthy baby boy. Patient has suicidal ideation: No Patient has homicidal ideation: No Renal/ Medical History: Denies: Hx Peritoneal Dialysis GI Medical History: Reports: Hx Gastroesophageal Reflux Disease Psychiatric Medical History: Denies: Hx Depression Past Surgical History: Reports: Hx Cholecystectomy - 09/2015 - Immunizations Immunizations up to date: Yes Hx Diphtheria, Pertussis, Tetanus Vaccination: Yes Review of Systems - Review of Systems Constitutional: See HPI, Chills, Fever EENT: No symptoms reported Cardiovascular: See HPI Respiratory: See HPI Musculoskeletal: See HPI -: Yes All other systems reviewed and negative Physical Exam - Vital signs Vitals: Temp Pulse Resp BP Pulse Ox 97.9 F 84 18 120/65 100 08/30/19 23:03 08/30/19 23:03 08/30/19 23:03 08/30/19 23:03 08/30/19 23:03 Interpretation: Normal - Notes Notes: GENERAL: Alert, interacts well. No acute distress. HEAD: Normocephalic, atraumatic EYES: Pupils equal, round and reactive to light, extraocular movements intact. ENT: Oral mucosa moist, tongue midline. Nares patent, no nasal septal hematoma, TMs intact. NECK: Full range of motion, supple, trachea midline. LUNGS: Clear to auscultation bilaterally, no wheezes, rales or rhonchi, no respiratory distress. HEART: Regular rate and rhythm, no murmurs, gallops, rubs. ABDOMEN: Soft, nontender, nondistended, bowel sounds present in all 4 quadrants. EXTREMITIES: Moves all 4 extremities spontaneously, no edema, radial and dorsalis pedis pulses 2/4 bilaterally. No cyanosis. Full range of motion, 5 out of 5 muscle strength, palpation of the back does reveal pain on palpation of the upper thoracic paraspinal muscles as well as the cervical portion of the trapezius muscles bilaterally. NEUROLOGICAL: Alert and oriented x3, normal speech, facial droop, biceps and patellar DTRs 2+ bilaterally. PSYCH: Normal mood, normal affect. SKIN: Warm, Dry, normal turgor, no rashes or lesions noted. Course - Re-evaluation Re-evalutation: 08/31/19 01:33 Chest x-ray shows no acute process. Pain is reproducible on palpation, patient will be given Tessalon Perles and muscle relaxers. Discharged home. - Vital Signs Vital signs: Temp Pulse Resp BP Pulse Ox 97.9 F 84 18 120/65 100 08/30/19 23:03 08/30/19 23:03 08/30/19 23:03 08/30/19 23:03 08/30/19 23:03 Discharge - Discharge Clinical Impression: Cough, Acute bilateral thoracic back pain Condition: Stable Disposition: HOME, SELF-CARE Additional Instructions: Today your chest x-ray was normal. There is no sign of pneumonia. When I push on your back your muscles are tender. You likely have muscle spasms from all the coughing. I have prescribed you Tessalon Perles to decrease your cough but I have also prescribed muscle relaxers to help with the muscle spasm and pain. Please use ibuprofen (Motrin or Advil) 600-800 mg every 8 hours as needed for pain or fever. You may also use acetaminophen (Tylenol) 1000 mg every 4-6 hours as needed for pain or fever. Please be aware that many medications contain acetaminophen, do not exceed a total of 1000 mg of acetaminophen every 6 hours. Please return to the emergency department for fevers, worsening pain, difficulty breathing or any new or concerning symptoms. Prescriptions: Methocarbamol [Robaxin 750 mg Tablet] 1 - 2 mg PO Q8HP PRN #30 tablet PRN Reason: For Back Pain Benzonatate [Tessalon Perles 100 mg Capsule] 100 mg PO Q8HP PRN #40 capsule PRN Reason: Forms: Return to Work
[2019-08-31 02:05] VITALS: BP 106/51
== END 2019-08-31 02:06 | disposition home or self-care (01) ==
LOC: ER 22:59
DX: M79.18 Myalgia, other site (principal); R05 Cough; R07.81 Pleurodynia; M25.512 Pain in left shoulder; R50.9 Fever, unspecified
CPT/HCPCS: 71046

== ENCOUNTER 2019-10-31 23:19 | Emergency (ER) | payer SELFPAY ==
[2019-11-01 00:22] LABS: ABSOLUTE BASOPHILS # (AUTO) 0.1 10^3/uL (0.0-0.2); ABSOLUTE EOSINOPHILS # (AUTO) 0.3 10^3/uL (0.0-0.6); ABSOLUTE LYMPHOCYTES (AUTO) 2.4 10^3/uL (0.5-4.7); ABSOLUTE MONOCYTES (AUTO) 0.8 10^3/uL (0.1-1.4); ABSOLUTE NEUT (AUTO) 5.7 10^3/uL (1.7-8.2); BASOPHILS % (AUTO) 0.8 % (0-2); HEMATOCRIT 37.3 % (36.0-47.0); HEMOGLOBIN 12.5 g/dL (12.0-15.5); MEAN CORPUSCULAR HEMOGLOBIN 29.5 pg (27.0-33.4); MEAN CORPUSCULAR HGB CONC 33.5 g/dL (32.0-36.0); MEAN CORPUSCULAR VOLUME 88 fl (80-97); MONOCYTES % (AUTO) 8.5 % (3-13); PLATELET COUNT 307 10^3/uL (150-450); RED BLOOD COUNT 4.23 10^6/uL (3.72-5.28); SEGMENTED NEUTROPHILS % (AUTO) 61.7 % (42-78); TOTAL CELLS COUNTED % (AUTO) 100 %; WHITE BLOOD COUNT 9.3 10^3/uL (4.0-10.5)
[2019-11-01 00:35] LABS: AMORPHOUS SEDIMENT,URINE TRACE /HPF; APPEARANCE,URINE SLIGHTLY-CLOUDY; BILIRUBIN,URINE NEGATIVE (NEGATIVE); COLOR,URINE YELLOW; GLUCOSE, URINE NEGATIVE (NEGATIVE); KETONES,URINE NEGATIVE (NEGATIVE); LEUKOCYTE ESTERASE,URINE TRACE (NEGATIVE); NITRITE,URINE NEGATIVE (NEGATIVE); PROTEIN,URINE NEGATIVE (NEGATIVE); URINE SPECIFIC GRAVITY 1.026
[2019-11-01 00:42] LABS: ALBUMIN 4.3 g/dL (3.5-5.0); ALKALINE PHOSPHATASE 73 U/L (38-126); ANION GAP 8 (5-19); ASPARTATE AMINO TRANSFERASE 30 U/L (14-36); BILIRUBIN,DIRECT 0.3 mg/dL (0.0-0.4); BILIRUBIN,TOTAL 0.3 mg/dL (0.2-1.3); BLOOD UREA NITROGEN 25 mg/dL (7-20); CARBON DIOXIDE 28 mmol/L (22-30); CHLORIDE 104 mmol/L (98-107); GLUCOSE 90 mg/dL (75-110); POTASSIUM 4.3 mmol/L (3.6-5.0); TOTAL PROTEIN 7.8 g/dL (6.3-8.2)
[2019-11-01] MEDS ORDERED: PENICILLIN V POTASSIUM 500 MG TABLET PO ONE (03:01)
[2019-11-01] MEDS ORDERED: KETOROLAC TROMETHAMINE 60 MG/2 ML SDV IM ONE (03:01)
--- NOTE | 2019-11-01 03:02 | ER Document Report ---
ED GI/ - General Chief Complaint: Abdominal Pain Stated Complaint: RIGHT SIDE ABDOMINAL PAIN Time Seen by Provider: 11/01/19 02:21 Mode of Arrival: Ambulatory Information source: Patient Notes: Otherwise healthy 24-year-old female presenting with right lower quadrant abdominal pain that is been ongoing for approximately 3 days. Patient reports her period ended 3 days ago. She also reports right sided dental infection/pain for 1 day. She also reports vomiting x2. Denies any diarrhea or fever. Denies any abnormal discharge. TRAVEL OUTSIDE OF THE [place] IN LAST 30 DAYS: No - Related Data Allergies/Adverse Reactions: No Known Allergies Allergy (Verified 06/07/19 00:25) Past Medical History - General Information source: Patient - Social History Smoking Status: Never Smoker Frequency of alcohol use: None Drug Abuse: None Family History: Reviewed & Not Pertinent, Other - Mother had gallbladder removed. No family history of anesthesia problems. 5-month-old healthy baby boy. Patient has suicidal ideation: No Patient has homicidal ideation: No Renal/ Medical History: Denies: Hx Peritoneal Dialysis GI Medical History: Reports: Hx Gastroesophageal Reflux Disease Psychiatric Medical History: Denies: Hx Depression Past Surgical History: Reports: Hx Cholecystectomy - 09/2015 - Immunizations Immunizations up to date: Yes Hx Diphtheria, Pertussis, Tetanus Vaccination: Yes Review of Systems - Review of Systems Constitutional: No symptoms reported EENT: Dental problem Cardiovascular: No symptoms reported Respiratory: No symptoms reported Gastrointestinal: See HPI Genitourinary: No symptoms reported Female Genitourinary: No symptoms reported Musculoskeletal: No symptoms reported Skin: No symptoms reported Hematologic/Lymphatic: No symptoms reported Neurological/Psychological: No symptoms reported Physical Exam - Vital signs Vitals: Temp Pulse Resp BP Pulse Ox 98.2 F 86 20 108/67 100 10/31/19 23:39 10/31/19 23:39 10/31/19 23:39 10/31/19 23:39 10/31/19 23:39 - Notes Notes: PHYSICAL EXAMINATION: GENERAL: Well-appearing, well-nourished and in no acute distress. HEAD: Atraumatic, normocephalic. EYES: Pupils equal round and reactive to light, extraocular movements intact, conjunctiva are normal. ENT: Nares patent, oropharynx clear without exudates. Moist mucous membranes. Dental decay and erythema noted around tooth #31 and 32. No obvious drainable abscess identified. NECK: Normal range of motion, supple without lymphadenopathy LUNGS: Breath sounds clear to auscultation bilaterally and equal. No wheezes rales or rhonchi. HEART: Regular rate and rhythm without murmurs ABDOMEN: Soft, nontender, nondistended abdomen. No guarding, no rebound. No masses appreciated. Female : deferred Musculoskeletal: Normal range of motion, no pitting or edema. No cyanosis. NEUROLOGICAL: Cranial nerves grossly intact. Normal speech, normal gait. Normal sensory, motor exams PSYCH: Normal mood, normal affect. SKIN: Warm, Dry, normal turgor, no rashes or lesions noted. Course - Re-evaluation Re-evalutation: Laboratory 10/31/19 10/31/19 11/01/19 00:08 00:08 00:08 WBC 9.3 RBC 4.23 Hgb 12.5 Hct 37.3 MCV 88 MCH 29.5 MCHC 33.5 RDW 13.0 Plt Count 307 Lymph % (Auto) 26.0 [place] % (Auto) 8.5 Eos % (Auto) 3.0 Baso % (Auto) 0.8 Absolute Neuts (auto) 5.7 Absolute Lymphs (auto) 2.4 Absolute Monos (auto) 0.8 Absolute Eos (auto) 0.3 Absolute Basos (auto) 0.1 Seg Neutrophils % 61.7 Sodium 139.6 Potassium 4.3 Chloride 104 Carbon Dioxide 28 Anion Gap 8 BUN 25 H Creatinine 0.77 Est GFR ( Amer) > 60 Est GFR (MDRD) Non-Af > 60 Glucose 90 Calcium 10.0 Total Bilirubin 0.3 Direct Bilirubin 0.3 Neonat Total Bilirubin Not Reportable Neonat Direct Bilirubin Not Reportable Neonat Indirect Bili Not Reportable AST 30 ALT 35 Alkaline Phosphatase 73 Total Protein 7.8 Albumin 4.3 Lipase 118.7 Urine Color YELLOW Urine Appearance SLIGHTLY-CLOUDY Urine pH 7.0 Ur Specific [place] 1.026 Urine Protein NEGATIVE Urine Glucose (UA) NEGATIVE Urine Ketones NEGATIVE Urine Blood MODERATE H Urine Nitrite NEGATIVE Urine Bilirubin NEGATIVE Urine Urobilinogen 2.0 H Ur Leukocyte Esterase TRACE H Urine WBC (Auto) 5 Urine RBC (Auto) 10 Squamous Epi Cells Auto 7 Amorphous Sediment Auto TRACE Urine Mucus (Auto) RARE Urine Ascorbic Acid NEGATIVE Urine HCG, Qual NEGATIVE Patient's work-up today has been unremarkable other than dental infection. Patient's abdomen soft, nontender without guarding or rebound. Labs unremarkable. Patient will be started on oral antibiotics for her dental infection, encouraged to follow-up with dentist. ED return precautions discussed regarding abdominal pain. Patient verbalizes understanding and agreement with plan. The patient's emergency department workup and current diagnosis were explained to the patient and or family. Follow-up instructions were provided. Medications if prescribed were discussed. Instructions for when to return to the emergency department including specific worrisome symptoms were discussed with the patient and/or family. - Vital Signs Vital signs: Temp Pulse Resp BP Pulse Ox 98.3 F 88 15 99/48 L 97 11/01/19 05:54 11/01/19 05:54 11/01/19 05:54 11/01/19 05:54 11/01/19 05:54 - Laboratory Result Diagrams: 10/31/19 00:08 10/31/19 00:08 Laboratory results interpreted by me: 10/31/19 11/01/19 00:08 00:08 BUN 25 H Urine Blood MODERATE H Urine Urobilinogen 2.0 H Ur Leukocyte Esterase TRACE H Discharge - Discharge Clinical Impression: Dental infection Abdominal pain Qualifiers: Abdominal location: unspecified location Qualified Code(s): R10.9 - Unspecified abdominal pain Condition: Stable Disposition: HOME, SELF-CARE Additional Instructions: Abdominal Pain There are many causes of abdominal pain. Pain can mean a serious problem requiring surgery (such as appendicitis). It can also be an innocent problem that goes away on its own (such as a viral infection). Often, time must pass to determine the cause of pain. The physician does not feel that hospitalization is necessary, at present. Things may change within the next 24 hours. Call the doctor or come back for re-examination if any problems occur, such as: (1) Pain that becomes more severe, steady, or becomes concentrated in one specific area. Also, pain that is more severe with movement or coughing. (2) Vomiting that persists or becomes more frequent. (3) Blood in the vomitus, urine, or bowel movements. Blood in the stool may have a tarry or black appearance. (4) Shaking chills or fever greater than 100 degrees F. (5) The abdomen becomes more distended or swollen. (6) Bowel movements cease. (7) Failure to improve as expected. Dental Infection or Abscess You have an infection, perhaps an abscess (pus formation) of the gum around one of your teeth, which is probably decayed. If there is an abscess, it may drain on its own or it may need to be opened or lanced. Severe swelling or drainage around a tooth usually means a deep dental abscess which usually req uires evaluation and treatment by a dentist or oral surgeon. Antibiotics may be prescribed while awaiting dental treatment. If you develop high fever with chills, worsening pain, or increasing s welling in the area, see a dentist or oral surgeon immediately or return to the Emergency Department immediately. Please take all antibiotics as prescribed. We did not find any obvious abnormality or reason for your abdominal pain. Please eat a bland diet, take Tylenol or Motrin for your pain. Return to the emergency department if you develop any of the above warning signs. Follow-up with your primary care in 1 to 2 days for recheck. Prescriptions: Penicillin V Potassium [Penicillin Vk 500 mg Tablet] 500 mg PO BID #14 tablet Forms: Return to Work
--- NOTE | 2019-11-01 04:55 | RADIOLOGY REPORT (SQ) ---
Ultrasound pelvis transvaginal on 11/01/2019 at 3:42 AM CLINICAL INDICATION: Right lower quadrant pain, ovarian cyst COMPARISON: 08/18/2019 FINDINGS: Multiple sonographic images are obtained throughout the pelvis by transvaginal approach, both transverse and sagittal images are obtained. Uterus measures approximately 7.7 x 3.8 x 5.7 cm. Endometrial stripe measures 2 mm which is within normal limits. Uterine myometrium appears homogeneous. The right ovary measures approximately 3.2 x 1.4 x 1.4 cm. Flow is demonstrated in the right ovary. Left ovary measures approximately 3.3 x 1.6 x 1.7 cm. Flow is demonstrated in the left ovary. No adnexal mass or fluid collection is noted. No free fluid is noted. IMPRESSION: Unremarkable exam.
[2019-11-01 05:56] VITALS: BP 99/48
== END 2019-11-01 05:55 | disposition home or self-care (01) ==
LOC: ER 23:19
DX: K04.7 Periapical abscess without sinus (principal); R10.9 Unspecified abdominal pain; R10.31 Right lower quadrant pain; K08.89 Other specified disorders of teeth and supporting structures; R11.10 Vomiting, unspecified
CPT/HCPCS: 99284; 96372; 36415; 83690; 85025; 81025; 80053; 81001; 76830; 93976; J1885

== ENCOUNTER 2019-12-18 22:50 | Emergency (ER) | payer SELFPAY ==
[2019-12-18] MEDS ORDERED: MORPHINE SULFATE 10 MG/ML INJ IV ONE (23:46)
[2019-12-18] MEDS ORDERED: ONDANSETRON HCL INJ/PF 4 MG/2 ML SDV IV ONE (23:46)
--- NOTE | 2019-12-18 23:46 | ER Document Report ---
ED Medical Screen (RME) - General Chief Complaint: Abdominal Pain Stated Complaint: ABDOMINAL PAIN,FEVER Time Seen by Provider: 12/18/19 23:42 Notes: HPI: 24-year-old female presenting to the emergency department complaining of 8 days of pelvic pain across the pelvis. It has progressively worsened. She also began having some vaginal bleeding and spotting 8 days ago that continues. Last menstrual cycle was September. Patient states that normally she has a menstrual cycle every month but missed in October. She does not know if she might be but has been sexually active. Denies dysuria. States that she has had a subjective fever over the last 3 days but did not take her temperature. Denies back pain I have greeted and performed a rapid initial assessment of this patient. A comprehensive ED assessment and evaluation of the patient, analysis of test results and completion of the medical decision making process will be conducted by additional ED providers PHYSICAL EXAMINATION: GENERAL: Well-appearing, well-nourished and in mild acute distress. HEAD: Atraumatic, normocephalic. EYES: sclera anicteric, conjunctiva are normal. ENT: Moist mucous membranes. NECK: Normal range of motion LUNGS: Normal work of breathing HEART: 2+ radial pulses bilaterally ABD: limited by positioning for exam in triage. Mild tenderness across the pelvis and suprapubic region on palpation EXTREMITIES: no pitting or edema. No cyanosis. NEUROLOGICAL: No focal neurological deficits. Moves all extremities spontaneously and on command. PSYCH: Normal mood, normal affect. SKIN: Warm, Dry, normal turgor, no rashes or lesions noted. TRAVEL OUTSIDE OF THE [place] IN LAST 30 DAYS: No - Related Data Allergies/Adverse Reactions: No Known Allergies Allergy (Verified 06/07/19 00:25) Past Medical History Renal/ Medical History: Denies: Hx Peritoneal Dialysis GI Medical History: Reports: Hx Gastroesophageal Reflux Disease Psychiatric Medical History: Denies: Hx Depression Past Surgical History: Reports: Hx Cholecystectomy - 09/2015 - Immunizations Immunizations up to date: Yes Hx Diphtheria, Pertussis, Tetanus Vaccination: Yes Physical Exam - Vital signs Vitals: Temp Pulse Resp BP Pulse Ox 97.7 F 72 16 115/69 100 12/18/19 22:59 12/18/19 22:59 12/18/19 22:59 12/18/19 22:59 12/18/19 22:59 Course - Vital Signs Vital signs: Temp Pulse Resp BP Pulse Ox 97.7 F 72 16 115/69 100 12/18/19 22:59 12/18/19 22:59 12/18/19 22:59 12/18/19 22:59 12/18/19 22:59
[2019-12-19 00:27] LABS: ABSOLUTE BASOPHILS # (AUTO) 0.1 10^3/uL (0.0-0.2); ABSOLUTE EOSINOPHILS # (AUTO) 0.2 10^3/uL (0.0-0.6); ABSOLUTE MONOCYTES (AUTO) 0.6 10^3/uL (0.1-1.4); ABSOLUTE NEUT (AUTO) 3.8 10^3/uL (1.7-8.2); BASOPHILS % (AUTO) 0.9 % (0-2); EOSINOPHILS % (AUTO) 2.9 % (0-6); HEMATOCRIT 37.9 % (36.0-47.0); HEMOGLOBIN 12.8 g/dL (12.0-15.5); LYMPHOCYTES % (AUTO) 39.3 % (13-45); MEAN CORPUSCULAR HEMOGLOBIN 29.5 pg (27.0-33.4); MEAN CORPUSCULAR HGB CONC 33.7 g/dL (32.0-36.0); MEAN CORPUSCULAR VOLUME 88 fl (80-97); MONOCYTES % (AUTO) 7.4 % (3-13); PLATELET COUNT 278 10^3/uL (150-450); RED BLOOD COUNT 4.33 10^6/uL (3.72-5.28); RED CELL DISTRIBUTION WIDTH 13.5 % (11.5-14.0); SEGMENTED NEUTROPHILS % (AUTO) 49.5 % (42-78); TOTAL CELLS COUNTED % (AUTO) 100 %; WHITE BLOOD COUNT 7.8 10^3/uL (4.0-10.5)
[2019-12-19 00:30] LABS: APPEARANCE,URINE CLEAR; BILIRUBIN,URINE NEGATIVE (NEGATIVE); COLOR,URINE YELLOW; GLUCOSE, URINE NEGATIVE (NEGATIVE); KETONES,URINE NEGATIVE (NEGATIVE); LEUKOCYTE ESTERASE,URINE TRACE (NEGATIVE); NITRITE,URINE NEGATIVE (NEGATIVE); PROTEIN,URINE NEGATIVE (NEGATIVE); URINE SPECIFIC GRAVITY 1.021; UROBILINOGEN,URINE NEGATIVE mg/dL (<2.0)
[2019-12-19 00:47] LABS: ALBUMIN 4.4 g/dL (3.5-5.0); ALKALINE PHOSPHATASE 71 U/L (38-126); ANION GAP 9 (5-19); ASPARTATE AMINO TRANSFERASE 36 U/L (14-36); BILIRUBIN,TOTAL 0.3 mg/dL (0.2-1.3); BLOOD UREA NITROGEN 16 mg/dL (7-20); CALCIUM 10.4 mg/dL (8.4-10.2); CARBON DIOXIDE 25 mmol/L (22-30); CHLORIDE 106 mmol/L (98-107); GLUCOSE 89 mg/dL (75-110); POTASSIUM 4.3 mmol/L (3.6-5.0); TOTAL PROTEIN 7.6 g/dL (6.3-8.2)
--- NOTE | 2019-12-19 01:29 | RADIOLOGY REPORT (SQ) ---
EXAM DESCRIPTION: US PELVIS TRANSVAGINAL COMPLETED DATE/TME: 12/18/2019 23:43 CLINICAL HISTORY: 24 years Female, pelvic pain Comparison:Nov 01 2019, 08/18/19. Technique: Transvaginal. LIMITATIONS: None. FINDINGS: 7.7-cm uterus with diffuse dilated myometral veins, 0.6-cm endometrial stripe thickness, 3.1-cm right ovary, and nonvisualized left ovary appear otherwise unremarkable in size, shape, echotexture, and vascularity. No free fluid. IMPRESSION: 1. Pelvic congestion. 2. Left ovary not visualized.
--- NOTE | 2019-12-19 01:43 | ER Document Report ---
ED General - General Chief Complaint: Abdominal Pain Stated Complaint: ABDOMINAL PAIN,FEVER Time Seen by Provider: 12/18/19 23:42 Mode of Arrival: Ambulatory Information source: Patient TRAVEL OUTSIDE OF THE [place] IN LAST 30 DAYS: No - HPI Onset: Other - 24-year-old Pakistani female with chief complaint of 8 days of diffuse abdominal pain and initially heavy vaginal bleeding requiring pads but now more scant and spotting vaginal bleeding. She did not know she was and patient had a positive hCG upon presentation to triage and ultrasound was ordered. This revealed pelvic congestion and unable to see left ovary patient is 4P3 6 years old 2 years old and 1 years old all normal spontaneous vaginal delivery. She has not had any symptoms like this with any of her pregnancies. Patient missed her October menstrual - Related Data Allergies/Adverse Reactions: No Known Allergies Allergy (Verified 06/07/19 00:25) Home Medications: denies Past Medical History - General Information source: Patient - Social History Smoking Status: Never Smoker Cigarette use (# per day): No Chew tobacco use (# tins/day): No Smoking Education Provided: No Frequency of alcohol use: None Drug Abuse: None Family History: Reviewed & Not Pertinent, Other - Mother had gallbladder removed. No family history of anesthesia problems. 5-month-old healthy baby boy. Patient has suicidal ideation: No Patient has homicidal ideation: No Renal/ Medical History: Denies: Hx Peritoneal Dialysis GI Medical History: Reports: Hx Gastroesophageal Reflux Disease Psychiatric Medical History: Denies: Hx Depression Past Surgical History: Reports: Hx Cholecystectomy - 09/2015 - Immunizations Immunizations up to date: Yes Hx Diphtheria, Pertussis, Tetanus Vaccination: Yes Review of Systems - Review of Systems Constitutional: Malaise EENT: No symptoms reported Cardiovascular: No symptoms reported Gastrointestinal: Abdominal pain Female Genitourinary: Last menstrual period, - Did not know she was till I informed her at 0 130, Heavy/abnormal periods Musculoskeletal: No symptoms reported Skin: No symptoms reported Hematologic/Lymphatic: No symptoms reported Physical Exam - Vital signs Vitals: Temp Pulse Resp BP Pulse Ox 97.7 F 72 16 115/69 100 12/18/19 22:59 12/18/19 22:59 12/18/19 22:59 12/18/19 22:59 12/18/19 22:59 Interpretation: Normal - General General appearance: Appears well In distress: Mild - HEENT Head: Normocephalic Eyes: Normal Conjunctiva: Normal Cornea: Normal Extraocular movements intact: Yes Eyelashes: Normal Pupils: PERRL Ears: Normal Sinus: Normal Nasal: Normal Mouth/Lips: Normal Mucous membranes: Normal - Respiratory Respiratory status: No respiratory distress Chest status: Nontender Breath sounds: Normal Chest palpation: Normal - Cardiovascular Rhythm: Regular Heart sounds: Normal auscultation Murmur: No Friction rub: No Kemar's crunch: No - Abdominal Inspection: Normal Distension: No distension Bowel sounds: Normal Tenderness: Tender - Lower quadrant tenderness bilaterally - Genitourinary External exam: Normal Vaginal bleeding: Mild - Extremities General upper extremity: Normal inspection General lower extremity: Normal inspection - Neurological Neuro grossly intact: Yes Cognition: Normal Orientation: AAOx4 [place] Coma Scale Eye Opening: Spontaneous [place] Coma Scale Verbal: Oriented [place] Coma Scale Motor: Obeys Commands Shyla Coma Scale Total: 15 Speech: Normal Cranial nerves: Normal Cerebellar coordination: Normal - Psychological Associated symptoms: Normal affect - Skin Skin Temperature: Warm Skin Moisture: Dry Course - Vital Signs Vital signs: Temp Pulse Resp BP Pulse Ox 97.7 F 72 16 115/69 100 12/18/19 22:59 12/18/19 22:59 12/18/19 22:59 12/18/19 22:59 12/18/19 22:59 - Laboratory Result Diagrams: 12/18/19 23:58 12/18/19 23:58 Laboratory results interpreted by me: 12/18/19 12/18/19 12/18/19 23:58 23:58 23:58 Calcium 10.4 H Serum HCG, Qual POSITIVE H Beta HCG, Quant Urine Blood MODERATE H Ur Leukocyte Esterase TRACE H 12/18/19 23:58 Calcium Serum HCG, Qual Beta HCG, Quant 114.49 H Urine Blood Ur Leukocyte Esterase Critical Care Note - Critical Care Note Total time excluding time spent on procedures (mins): 60 Comments: I discussed this case with Dr. Eduardo Aparicio, OB doctor and advised him of the findings and he will see the patient in the office with repeat hCG Discharge - Discharge Clinical Impression: Vaginal bleeding affecting early Abdominal pain Qualifiers: Abdominal location: generalized Qualified Code(s): R10.84 - Generalized abdominal pain Condition: Good Disposition: HOME, SELF-CARE Instructions: Abdominal Pain ([facility]) Additional Instructions: Follow-up with Dr. Eduardo Aparicio, OB doctor tomorrow or Thursday; will need a repeat hCG; take medicines as directed encourage fluids return to ER if symptoms persist or worsen Prescriptions: Acetaminophen with Codeine [Tylenol #3 Tablet] 1 each PO Q4HP PRN #10 tablet PRN Reason: Forms: Return to Work, Follow-Up Laboratory Testing
[2019-12-19 02:57] VITALS: BP 109/56
== END 2019-12-19 02:58 | disposition home or self-care (01) ==
LOC: ER 22:50
DX: O26.899 Other specified pregnancy related conditions, unspecified trimester (principal); R10.84 Generalized abdominal pain; O20.9 Hemorrhage in early pregnancy, unspecified; O26.819 Pregnancy related exhaustion and fatigue, unspecified trimester; Z3A.00 Weeks of gestation of pregnancy not specified
CPT/HCPCS: 99284; 96374; 96375; 86900; 86901; 36415; 86850; 84702; 84703; 85025; 80053; 81001; 76830; 93976; J2270; J2405

== ENCOUNTER 2020-01-13 21:18 | Emergency (ER) | payer SELFPAY ==
[2020-01-13 21:30] VITALS: BP 100/62
--- NOTE | 2020-01-13 21:49 | ER Document Report ---
ED Medical Screen (RME) - General Chief Complaint: Neck Pain >24hrs old Stated Complaint: NECK/ARM PAIN Time Seen by Provider: 01/13/20 21:44 Mode of Arrival: Ambulatory Information source: Patient Notes: 24-year-old female presented to ED for complaint of neck pain radiating down the right arm for 3 days. She states she has not fallen or injured this arm or shoulder. She does not know why it started hurting but is been hurting for 3 days. States it is a sharp pain. She denies use of smoke alcohol or drugs. Denies any past medical history. Last menstrual cycle started on December 31. Patient is alert oriented respirations regular nonlabored speaking in full sentences we will get a x-ray of the neck and shoulder and have seen by another provider. Will medicate with some Motrin. I have greeted and performed a rapid initial assessment of this patient. A comprehensive ED assessment and evaluation of the patient, analysis of test results and completion of medical decision making process will be conducted by an additional ED providers. TRAVEL OUTSIDE OF THE [place] IN LAST 30 DAYS: No - Related Data Allergies/Adverse Reactions: No Known Allergies Allergy (Verified 06/07/19 00:25) Past Medical History Renal/ Medical History: Denies: Hx Peritoneal Dialysis GI Medical History: Reports: Hx Gastroesophageal Reflux Disease Psychiatric Medical History: Denies: Hx Depression Past Surgical History: Reports: Hx Cholecystectomy - 09/2015 - Immunizations Immunizations up to date: Yes Hx Diphtheria, Pertussis, Tetanus Vaccination: Yes Physical Exam - Vital signs Vitals: Temp Pulse Resp BP Pulse Ox 98.0 F 66 18 100/62 100 01/13/20 21:29 01/13/20 21:29 01/13/20 21:29 01/13/20 21:29 01/13/20 21:29 Course - Vital Signs Vital signs: Temp Pulse Resp BP Pulse Ox 98.0 F 66 18 100/62 100 01/13/20 21:29 01/13/20 21:29 01/13/20 21:29 01/13/20 21:29 01/13/20 21:29
[2020-01-13] MEDS ORDERED: IBUPROFEN 800 MG TABLET PO ONE (21:50)
--- NOTE | 2020-01-13 22:47 | RADIOLOGY REPORT (SQ) ---
EXAM DESCRIPTION: XR CERVICAL SPINE 4-5 VIEWS COMPLETED DATE/TME: 01/13/2020 21:50 CLINICAL HISTORY: 24 years, Female, Pain no known injury COMPARISON: None. NUMBER OF VIEWS: 6 TECHNIQUE: Both obliques LIMITATIONS: None. FINDINGS: Alignment is anatomic. No evidence of acute fracture. Neuroforamen are patent. Stranding soft tissues are unremarkable IMPRESSION: No acute bony injury is identified to the cervical spine copyright 2010 [employer]- All Rights Reserved
--- NOTE | 2020-01-13 22:47 | RADIOLOGY REPORT (SQ) ---
Right shoulder three view on 01/13/2020 at 10:19 PM CLINICAL INDICATION: Right shoulder pain COMPARISON: None FINDINGS: The AC joint is well aligned. The glenohumeral joint is well located. There are no fractures. No bony abnormality is noted. IMPRESSION: No acute abnormality.
== END 2020-01-14 03:15 | disposition left against medical advice (07) ==
LOC: ER 21:18
DX: M54.2 Cervicalgia (principal); M79.601 Pain in right arm
CPT/HCPCS: 72050; 99283

== ENCOUNTER 2020-01-27 00:15 | Emergency (ER) | payer SELFPAY ==
[2020-01-27] MEDS ORDERED: ACETAMINOPHEN 325 MG TABLET PO ONE (01:06)
[2020-01-27] MEDS ORDERED: KETOROLAC TROMETHAMINE INJ/PF 30 MG/1 ML SDV IV ONE (03:38)
[2020-01-27] MEDS ORDERED: ONDANSETRON HCL INJ/PF 4 MG/2 ML SDV IV ONE (03:38)
[2020-01-27] MEDS ORDERED: NORMAL SALINE 1000 ML 1,000 ML IV ONE (03:38)
--- NOTE | 2020-01-27 04:28 | ER Document Report ---
Entered by HEATH HALL SCRIBE 01/27/20 0325 Acting as scribe for:MERLY LYN IV, MD ED Headache - General Chief Complaint: Headache Stated Complaint: HEAD PAIN/BLURRY VISION Time Seen by Provider: 01/27/20 03:20 Mode of Arrival: Ambulatory Information source: Patient Notes: This 24 year old female patient presents to the ED today with complaints of a headache for the past x1 week. Patient states that she gets headaches frequently, but this one is worse than usual. Patient reports nausea, x1 episode of vomiting at 2300, photophobia, and blurred vision. Patient notes that she has been taking Motrin throughout the week with no relief. Patient denies dizziness or any other symptoms. TRAVEL OUTSIDE OF THE [place] IN LAST 30 DAYS: No - Related Data Allergies/Adverse Reactions: No Known Allergies Allergy (Verified 06/07/19 00:25) Past Medical History - General Information source: Patient - Social History Smoking Status: Never Smoker Cigarette use (# per day): No Chew tobacco use (# tins/day): No Smoking Education Provided: No Frequency of alcohol use: None Drug Abuse: None Family History: Reviewed & Not Pertinent, Other - Mother had gallbladder removed. No family history of anesthesia problems. 5-month-old healthy baby b oy. Patient has suicidal ideation: No Patient has homicidal ideation: No GI Medical History: Reports: Hx Gastroesophageal Reflux Disease Past Surgical History: Reports: Hx Cholecystectomy - 09/2015 - Immunizations Immunizations up to date: Yes Hx Diphtheria, Pertussis, Tetanus Vaccination: Yes Review of Systems - Review of Systems Constitutional: No symptoms reported EENT: See HPI, Blurred vision, Other - Photophobia Cardiovascular: See HPI. denies: Dizziness Respiratory: No symptoms reported Gastrointestinal: See HPI, Nausea, Vomiting Genitourinary: No symptoms reported Female Genitourinary: No symptoms reported Musculoskeletal: No symptoms reported Skin: No symptoms reported Neurological/Psychological: See HPI, Headaches -: Yes All other systems reviewed and negative Physical Exam - Vital signs Vitals: Temp Pulse Resp BP Pulse Ox 98.5 F 74 20 111/64 100 01/27/20 00:20 01/27/20 00:20 01/27/20 00:20 01/27/20 00:20 01/27/20 00:20 Interpretation: Normal - General General appearance: Other - Appears fatigued, but nontoxic. - HEENT Head: Normocephalic, Atraumatic Eyes: Normal Pupils: PERRL - Respiratory Respiratory status: No respiratory distress Chest status: Nontender Breath sounds: Normal Chest palpation: Normal - Cardiovascular Rhythm: Regular Heart sounds: Normal auscultation Murmur: No - Abdominal Inspection: Normal Distension: No distension Bowel sounds: Normal Tenderness: Nontender - Abdomen soft Organomegaly: No organomegaly - Back Back: Normal, Nontender - Extremities General upper extremity: Normal inspection General lower extremity: Normal inspection - Neurological Neuro grossly intact: Yes - Psychological Associated symptoms: Other - Skin Skin Temperature: Warm Skin Moisture: Dry Skin Color: Normal Course - Re-evaluation Re-evalutation: 01/27/20 05:49 Patient states she is feeling better this time. Emergency signs and symptoms, reasons to return to the emergency department discussed with patient. - Vital Signs Vital signs: Temp Pulse Resp BP Pulse Ox 97.8 F 75 18 88/47 L 100 01/27/20 03:51 01/27/20 03:51 01/27/20 03:51 01/27/20 03:51 01/27/20 03:51 Discharge - Discharge Clinical Impression: Acute headache Qualifiers: Headache type: unspecified Intractability: not intractable Qualified Code(s): R51 - Headache Condition: Good Disposition: HOME, SELF-CARE Instructions: Antinausea Medication ([facility]), Headache ([facility]) Additional Instructions: Return to the Emergency Department without delay if any worse. HOME CARE INSTRUCTIONS & INFORMATION: Thank you for choosing us for your medical needs. We hope you're satisfied with the care you received. After you leave, you must properly care for your problem and, at the same time, observe its progress. Any condition can change. Some illnesses can change rapidly over hours or days. If your condition worsens, return to the Emergency Department or see your physician promptly. ABOUT YOUR X-RAYS AND EKG'S: If you had an EKG or X-rays taken, they have been read by the Emergency Physician. The X-rays and EKG's will also be read by a Radiologist or Canteen Operator within 24 hours. If discrepancies are noted, you will be notified by telephone. Please be certain the ED has a correct telephone number & address where you can be reached. Also, realize that some fractures or abnormalities do not show up on initial X-rays. If your symptoms continue, see your physician. ABOUT YOUR LABORATORY TEST: If you had laboratory tests, the results have been reviewed by the Emergency Physician. Some test results (for example cultures) may not be available for several days. You will be contacted if any test result shows you need additional treatment. Please be certain the ED has a correct telephone number and address where you can be reached. ABOUT YOUR MEDICATIONS: You will receive instructions on how to take your medicine on the prescription label you receive. Additional information may be provided by the Pharmacy. If you have questions afterwards, call the ED for clarification or further instructions. Some prescribed medications may cause drowsiness. Do not perform tasks such as driving a car or operating machinery without consulting your Pharmacist. If you feel you need a refill of pain medication, your condition will need re-evaluation. Please do not call for a refill of any medication. ABOUT YOUR SIGNATURE: Signature of this document acknowledges to followin. Understanding that you received emergency treatment and that you may be released before al medical problems are known or treated. Please be certain the ED has a correct phone number & address where you can be reached. 2. Acknowledgement that you will arrange for follow-up care as recommended. 3. Authorization for the Emergency Physician to provide information to your follow-up Physician in order to maximize your care. AT ANY TIME, IF YOUR SYMPTOMS CHANGE SIGNIFICANTLY OR WORSEN OR YOU DEVELOP NEW SYMPTOMS, RETURN TO THE EMERGENCY DEPARTMENT IMMEDIATELY FOR RE-EVALUATION. OUR GOAL IS TO PROVIDE EXCELLENT MEDICAL CARE! WE HOPE THAT WE HAVE MET YOUR EXPECTATIONS DURING YOUR EMERGENCY DEPARTMENT VISIT AND THAT YOU FEEL YOU HAVE RECEIVED EXCELLENT CARE! Prescriptions: Ketorolac Tromethamine [Toradol 10 mg Tablet] 10 mg PO Q6HP PRN #12 tablet PRN Reason: headache Ondansetron [Zofran Odt 4 mg Tablet] 1 tab PO Q8HP PRN #12 tab.rapdis PRN Reason: I personally performed the services described in the documentation, reviewed and edited the documentation which was dictated to the scribe in my presence, and it accurately records my words and actions.
[2020-01-27 06:04] VITALS: BP 101/55
== END 2020-01-27 06:02 | disposition home or self-care (01) ==
LOC: ER 00:15
DX: R51 Headache (principal); H53.8 Other visual disturbances; R11.2 Nausea with vomiting, unspecified; H53.149 Visual discomfort, unspecified; Z90.49 Acquired absence of other specified parts of digestive tract
CPT/HCPCS: 99283; 96361; 96374; 96375; J1885; J2405; J7030

== ENCOUNTER 2020-07-16 23:59 | Emergency (ER) | payer SELFPAY ==
[2020-07-17 00:47] LABS: APPEARANCE,URINE CLEAR; BILIRUBIN,URINE NEGATIVE (NEGATIVE); COLOR,URINE STRAW; GLUCOSE, URINE NEGATIVE (NEGATIVE); KETONES,URINE NEGATIVE (NEGATIVE); LEUKOCYTE ESTERASE,URINE NEGATIVE (NEGATIVE); NITRITE,URINE NEGATIVE (NEGATIVE); PROTEIN,URINE NEGATIVE (NEGATIVE); URINE SPECIFIC GRAVITY 1.015; UROBILINOGEN,URINE NEGATIVE mg/dL (<2.0)
[2020-07-17 00:48] LABS: ABSOLUTE BASOPHILS # (AUTO) 0.1 10^3/uL (0.0-0.2); ABSOLUTE EOSINOPHILS # (AUTO) 0.1 10^3/uL (0.0-0.6); ABSOLUTE LYMPHOCYTES (AUTO) 2.6 10^3/uL (0.5-4.7); ABSOLUTE MONOCYTES (AUTO) 0.6 10^3/uL (0.1-1.4); ABSOLUTE NEUT (AUTO) 5.4 10^3/uL (1.7-8.2); BASOPHILS % (AUTO) 0.9 % (0-2); EOSINOPHILS % (AUTO) 1.6 % (0-6); HEMATOCRIT 39.4 % (36.0-47.0); HEMOGLOBIN 13.5 g/dL (12.0-15.5); LYMPHOCYTES % (AUTO) 29.1 % (13-45); MEAN CORPUSCULAR HGB CONC 34.3 g/dL (32.0-36.0); MEAN CORPUSCULAR VOLUME 88 fl (80-97); MONOCYTES % (AUTO) 7.2 % (3-13); PLATELET COUNT 272 10^3/uL (150-450); RED BLOOD COUNT 4.51 10^6/uL (3.72-5.28); RED CELL DISTRIBUTION WIDTH 13.2 % (11.5-14.0); SEGMENTED NEUTROPHILS % (AUTO) 61.2 % (42-78); TOTAL CELLS COUNTED % (AUTO) 100 %; WHITE BLOOD COUNT 8.9 10^3/uL (4.0-10.5)
[2020-07-17 00:58] LABS: ALBUMIN 4.9 g/dL (3.5-5.0); ALKALINE PHOSPHATASE 72 U/L (38-126); ANION GAP 10 (5-19); ASPARTATE AMINO TRANSFERASE 28 U/L (14-36); BILIRUBIN,TOTAL 0.5 mg/dL (0.2-1.3); BLOOD UREA NITROGEN 22 mg/dL (7-20); CALCIUM 10.4 mg/dL (8.4-10.2); CARBON DIOXIDE 29 mmol/L (22-30); CHLORIDE 102 mmol/L (98-107); GLUCOSE 95 mg/dL (75-110); TOTAL PROTEIN 8.4 g/dL (6.3-8.2)
--- NOTE | 2020-07-17 01:02 | ER Document Report ---
ED GI/ - General Chief Complaint: Flank Pain Stated Complaint: FLANK PAIN/WRIST PAIN Time Seen by Provider: 07/17/20 00:37 Notes: CHIEF COMPLAINT: Right-sided abdominal pain for 3 days HPI: 24-year-old female presenting with right-sided abdominal pain over the last 3 days. Complains of pain in the right upper and right lower quadrant. Denies nausea vomiting denies difficulty with bowel movements. No fever no back pain ROS: See HPI - all other systems were reviewed and are otherwise negative Constitutional: no fever Eyes: no drainage, no blurred vision ENT: no runny nose, no sore throat Cardiovascular: no chest pain Resp: no SOB, no cough GI: no vomiting, no diarrhea, + abdominal pain : no dysuria Integumentary: no rash Allergy: no hives Musculoskeletal: no extremity pain or swelling Neurological: no numbness/tingling, no weakness MEDICATIONS: I agree with the patient medications as charted by the RN. ALLERGIES: I agree with the allergies as charted by the RN. PAST MEDICAL HISTORY/PAST SURGICAL HISTORY: Reviewed and agree as charted by RN. SOCIAL HISTORY: Reviewed and agree as charted by RN. FAMILY HISTORY: No significant familial comorbid conditions directly related to patient complaint EXAM: Reviewed vital signs as charted by RN. CONSTITUTIONAL: Alert and oriented and responds appropriately to questions. Well-appearing; well-nourished HEAD: Normocephalic; atraumatic EYES: PERRL; Conjunctivae clear, sclerae non-icteric ENT: normal nose; no rhinorrhea; moist mucous membranes NECK: Supple without meningismus; non-tender; no cervical lymphadenopathy, no masses CARD: RRR; no murmurs, no clicks, no rubs, no gallops; symmetric distal pulses RESP: Normal chest excursion without splinting or tachypnea; breath sounds clear and equal bilaterally; no wheezes, no rhonchi, no rales, pulse oximetry 98% on room air not hypoxic ABD/GI: Normal bowel sounds; non-distended; soft, tenderness in the right upper quadrant right lateral abdomen and right lower quadrant on palpation, no rebound, no guarding; no palpable organomegaly or masses. BACK: The back appears normal and is non-tender to palpation, there is no CVA tenderness EXT: Normal ROM in all joints; non-tender to palpation; no cyanosis, no effusi ons, no edema SKIN: Normal color for age and race; warm; dry; good turgor; no acute lesions noted NEURO: Moves all extremities equally; Motor and sensory function intact PSYCH: The patient's mood and manner are appropriate. Grooming and personal hygiene are appropriate. MDM: 24-year-old female with 3 days of right-sided abdominal pain. No fever no vomiting no diarrhea. Will obtain screening labs per triage protocol but will add CT to evaluate for possible appendicitis, colitis or other intra-abdominal surgical or infectious pathologies TRAVEL OUTSIDE OF THE [place] IN LAST 30 DAYS: No - Related Data Allergies/Adverse Reactions: No Known Allergies Allergy (Verified 06/07/19 00:25) Past Medical History - Social History Smoking Status: Never Smoker Frequency of alcohol use: None Drug Abuse: None Family History: Reviewed & Not Pertinent, Other - Mother had gallbladder remove d. No family history of anesthesia problems. 5-month-old healthy baby boy. Patient has homicidal ideation: No Renal/ Medical History: Denies: Hx Peritoneal Dialysis GI Medical History: Reports: Hx Gastroesophageal Reflux Disease Psychiatric Medical History: Denies: Hx Depression Past Surgical History: Reports: Hx Cholecystectomy - 09/2015 - Immunizations Immunizations up to date: Yes Hx Diphtheria, Pertussis, Tetanus Vaccination: Yes Physical Exam - Vital signs Vitals: Temp Pulse Resp BP Pulse Ox 98.0 F 71 18 110/59 L 100 07/17/20 00:17 07/17/20 00:17 07/17/20 00:17 07/17/20 00:17 07/17/20 00:17 Course - Re-evaluation Re-evalutation: 07/17/20 04:36 CT does not show acute abnormalities, lab work does not suggest acute abnormalities. Definitive reason for patient's discomfort not noted today, will have her follow-up with PCP for reevaluation - Vital Signs Vital signs: Temp Pulse Resp BP Pulse Ox 98.0 F 71 18 110/59 L 100 07/17/20 00:17 07/17/20 00:17 07/17/20 00:17 07/17/20 00:17 07/17/20 00:17 - Laboratory Result Diagrams: 07/17/20 00:28 07/17/20 00:28 Laboratory results interpreted by me: 07/17/20 00:28 BUN 22 H Calcium 10.4 H Total Protein 8.4 H Discharge - Discharge Clinical Impression: Abdominal pain, right lower quadrant Condition: Stable Disposition: HOME, SELF-CARE Instructions: Abdominal Pain ([facility]) Additional Instructions: There was not a definitive reason noted for your abdominal pain today. Your lab work and CT imaging study did not show acute findings. Follow-up closely with primary care provider or gastroenterology for reevaluation of symptoms. Take the Bentyl for any abdominal pain or spasm Prescriptions: Dicyclomine HCl [Bentyl 20 mg Tablet] 20 mg PO Q6H PRN #20 tablet PRN Reason: Referrals: VARGHESE JURADO MD [ACTIVE STAFF] - Follow up as needed
[2020-07-17] MEDS ORDERED: ONDANSETRON HCL INJ/PF 4 MG/2 ML SDV IV ONE (01:06)
--- NOTE | 2020-07-17 04:31 | RADIOLOGY REPORT (SQ) ---
CT ABDOMEN AND PELVIS WITH INTRAVENOUS CONTRAST: 07/17/2020 3:28 AM CDT HISTORY: 24-year old with right lower quadrant abdominal pain. COMPARISON: CT of abdomen and pelvis from 07/19/2019 TECHNIQUE: Axial contiguous images were obtained from the lung bases to the proximal femurs with intravenous intravenous contrast administered. Oral contrast was given to the patient. Sagittal and coronal reconstructions were also obtained and reviewed. This exam was performed according to our departmental dose-optimization program, which includes automated exposure control, adjustment of the mA and/or KV according to the patient's size and/or use of iterative reconstruction technique. FINDINGS: No focal consolidative airspace opacities are seen. No discrete pleural effusion is seen. The visualized hepatic parenchyma is diffusely low in attenuation. No focal enhancing lesion is seen. The gallbladder is surgically absent. The spleen and pancreas are normal in contour. The bilateral adrenal glands appear unremarkable. Both kidneys demonstrate no evidence of hydronephrosis. The urinary bladder is mildly distended, and appears grossly unremarkable. The uterus is present. An IUD is seen. The stomach is not well distended. The small bowel loops appear unremarkable. No pericolonic inflammatory stranding is seen. The appendix appears unremarkable. There is no evidence of pneumoperitoneum or free fluid. The aorta and IVC appear normal in size. No significantly enlarged lymph nodes are seen in the abdomen or pelvis. Review of the bone show no evidence of any suspicious lytic or blastic lesions. IMPRESSION: No acute process is seen within the abdomen or pelvis. Hepatic steatosis
[2020-07-17] MEDS ORDERED: KETOROLAC TROMETHAMINE INJ/PF 30 MG/1 ML SDV IV ONE (04:36)
[2020-07-17 04:58] VITALS: BP 98/57
== END 2020-07-17 04:58 | disposition home or self-care (01) ==
LOC: ER 23:59
DX: R10.31 Right lower quadrant pain (principal); R10.11 Right upper quadrant pain; R10.811 Right upper quadrant abdominal tenderness; R10.813 Right lower quadrant abdominal tenderness; R10.819 Abdominal tenderness, unspecified site; K76.0 Fatty (change of) liver, not elsewhere classified; Z87.19 Personal history of other diseases of the digestive system; Z90.49 Acquired absence of other specified parts of digestive tract
CPT/HCPCS: 99285; 96374; 96375; 36415; 83690; 84703; 85025; 80053; 81001; 74177; J1885; J2405

== ENCOUNTER 2020-11-07 22:33 | Emergency (ER) | payer SELFPAY ==
[2020-11-07 22:39] VITALS: BP 119/64
[2020-11-07] MEDS ORDERED: IBUPROFEN 600 MG TABLET PO ONE (22:44)
--- NOTE | 2020-11-07 22:45 | ER Document Report ---
ED Extremity Problem, Upper - General Stated Complaint: HNAD PAIN NO INJURY Time Seen by Provider: 11/07/20 22:41 Notes: CHIEF COMPLAINT: Left wrist pain for 3 months HPI: 25-year-old female presenting with left wrist pain on the dorsal aspect of the wrist for 3 months. Has noticed a small area getting larger that is painful in nature. Has not seen a primary care provider for evaluation of this. Denies numbness or tingling in the hand. ROS: See HPI - all other systems were reviewed and are otherwise negative Constitutional: no fever Integumentary: no rash Allergy: no hives Musculoskeletal: + extremity pain or swelling Neurological: no numbness/tingling, no weakness MEDICATIONS: I agree with the patient medications as charted by the RN. ALLERGIES: I agree with the allergies as charted by the RN. PAST MEDICAL HISTORY/PAST SURGICAL HISTORY: Reviewed and agree as charted by RN. SOCIAL HISTORY: Reviewed and agree as charted by RN. FAMILY HISTORY: No significant familial comorbid conditions directly related to patient complaint EXAM: Reviewed vital signs as charted by RN. CONSTITUTIONAL: Alert and oriented and responds appropriately to questions. Well-appearing; well-nourished HEAD: Normocephalic; atraumatic EYES: Conjunctivae clear, sclerae non-icteric ENT: normal nose; no rhinorrhea; moist mucous membranes NECK: Supple without meningismus CARD: symmetric distal pulses RESP: Normal chest excursion without splinting or tachypnea ABD/GI: non-distended BACK: The back appears normal EXT: Normal ROM in all joints; no cyanosis, no effusions, no edema. There is a ganglion cyst noted on the radial side of the left wrist on the dorsal aspect. It measures approximately 1 cm diameter and is mildly tender but is mobile SKIN: Normal color for age and race; warm; dry; good turgor; no acute lesions noted NEURO: Moves all extremities equally; Motor and sensory function intact PSYCH: The patient's mood and manner are appropriate. Grooming and personal hygiene are appropriate. MDM: 25-year-old female with a ganglion cyst on the left wrist. Will treat patient's pain refer to orthopedics for management TRAVEL OUTSIDE OF THE [place] IN LAST 30 DAYS: No - Related Data Allergies/Adverse Reactions: No Known Allergies Allergy (Verified 06/07/19 00:25) Past Medical History - Social History Smoking Status: Unknown if Ever Smoked Family History: Reviewed & Not Pertinent, Other - Mother had gallbladder removed. No family history of anesthesia problems. 5-month-old healthy baby boy. Renal/ Medical History: Denies: Hx Peritoneal Dialysis GI Medical History: Reports: Hx Gastroesophageal Reflux Disease Psychiatric Medical History: Denies: Hx Depression Past Surgical History: Reports: Hx Cholecystectomy - 09/2015 - Immunizations Immunizations up to date: Yes Hx Diphtheria, Pertussis, Tetanus Vaccination: Yes Physical Exam - Vital signs Vitals: Temp Pulse Resp BP Pulse Ox 98.2 F 75 20 119/64 100 11/07/20 22:39 11/07/20 22:39 11/07/20 22:39 11/07/20 22:39 11/07/20 22:39 Course - Vital Signs Vital signs: Temp Pulse Resp BP Pulse Ox 98.2 F 75 20 119/64 100 11/07/20 22:39 11/07/20 22:39 11/07/20 22:39 11/07/20 22:39 11/07/20 22:39 - Laboratory Results Critical Laboratory Results Reviewed: No Critical Results - Radiology Results Critical Radiology Results Reviewed: No Critical Results Discharge - Discharge Clinical Impression: Ganglion cyst of dorsum of left wrist Condition: Stable Disposition: HOME, SELF-CARE Instructions: Ganglion Cyst ([facility]) Additional Instructions: Take the Voltaren for pain. Follow-up closely with orthopedics for further evaluation and management call for appointment. You have a small ganglion cyst on the wrist which is a small collection of nerves in a cystic structure. This will need to be removed by orthopedics Prescriptions: Diclofenac Sodium [Voltaren 50 Mg Tablet.] 50 mg PO BID #20 tablet. Referrals: KINSEY ATKINSON DO [ACTIVE STAFF] - Follow up as needed
== END 2020-11-07 22:55 | disposition home or self-care (01) ==
LOC: ER 22:33
DX: M67.432 Ganglion, left wrist (principal)
CPT/HCPCS: 99283